=== PATIENT | female | born 2000 | race Caucasian/White ===

== ENCOUNTER 2023-09-18 13:32 | Emergency (ER) | payer BC ==
--- NOTE | 2023-09-18 14:04 | ED ---
General Adult HPI - General Source: patient Mode of arrival: ambulatory Limitations: no limitations <Leno Ryan - Last Filed: 09/18/23 14:56> <Raffy Moya - Last Filed: 09/18/23 16:20> - General Chief complaint: Nausea/Vomiting/Diarrhea Stated complaint: NV, poss Alcohol Poisoning Time Seen by Provider: 09/18/23 13:52 - History of Present Illness Initial comments: Dictation was produced using [employer] dictation software. please excuse any grammatical, word or spelling errors. Chief Complaint: 22-year-old female presents with feeling hung over History of Present Illness: Patient 22-year-old female she went out last night to celebrate her new job. She had multiple alcoholic beverages. Last night and today she had significant bouts of nausea and vomiting. She states she does not drink often. She does complain of some mild abdominal cramping. Patient denies . Patient states that her emesis is nonbilious nonbloody. The ROS documented in this emergency department record has been reviewed and confirmed by me. Those systems with pertinent positive or negative responses have been documented in the HPI. All other systems are other negative and/or noncontributory. (Leno Ryan) - Related Data Previous Rx's Medication Instructions Recorded Famotidine [Pepcid] 20 mg PO DAILY 14 Days #14 tablet 09/18/23 Allergies Allergy/AdvReac Type Severity Reaction Status Date / Time erythromycin base Allergy Rash/Hives Verified 09/18/23 13:42 Penicillins Allergy Rash/Hives Verified 09/18/23 13:42 sulfamethoxazole Allergy Rash/Hives Verified 09/18/23 13:42 [From Bactrim] trimethoprim [From Bactrim] Allergy Rash/Hives Verified 09/18/23 13:42 Review of Systems ROS Other: All systems not noted in ROS Statement are negative. <Leno Ryan - Last Filed: 09/18/23 14:56> ROS Other: All systems not noted in ROS Statement are negative. <Raffy Moya - Last Filed: 09/18/23 16:20> ROS Statement: Those systems with pertinent positive or pertinent negative responses have been documented in the HPI. Past Medical History Past Medical History: No Reported History History of Any Multi-Drug Resistant Organisms: None Reported Additional Past Surgical History / Comment(s): Brain tumo, breast tumor. Past Psychological History: No Psychological Hx Reported Smoking Status: Vaper Past Alcohol Use History: Occasional Past Drug Use History: Marijuana <Leno Ryan - Last Filed: 09/18/23 14:56> General Exam Limitations: no limitations <Leno Ryan - Last Filed: 09/18/23 14:56> - General Exam Comments Initial Comments: PHYSICAL EXAM: General Impression: Alert and oriented x3, not in acute distress HEENT: Normocephalic atraumatic, extra-ocular movements intact, pupils equal and reactive to light bilaterally, mucous membranes moist. Cardiovascular: Heart regular rate and rhythm Chest: Able to complete full sentences, no retractions, no tachypnea Abdomen: abdomen soft, non-tender, non-distended, no organomegaly Musculoskeletal: Pulses present and equal in all extremities, no peripheral edema Motor: no focal deficits noted Neurological: CN II-XII grossly intact, no focal motor or sensory deficits noted Skin: Intact with no visualized rashes Psych: Normal affect and mood (Leno Ryan) Course Vital Signs 09/18/23 09/18/23 13:38 15:28 Temperature 98.8 F 97.7 F Pulse Rate 64 71 Respiratory 20 16 Rate Blood Pressure 134/90 139/90 O2 Sat by Pulse 98 97 Oximetry Medical Decision Making - Lab Data Result diagrams: 09/18/23 14:21 <Leno Ryan - Last Filed: 09/18/23 14:56> - Lab Data Result diagrams: 09/18/23 14:21 09/18/23 14:21 <Raffy Moya - Last Filed: 09/18/23 16:20> - Medical Decision Making Was pt. sent in by a medical professional or institution (, PA, RECEPTION AGENT, urgent care, hospital, or custodial...) When possible be specific @ -No Did you speak to anyone other than the patient for history (EMS, parent, family, police, friend...)? What history was obtained from this source @ -No Did you review nursing and triage notes (agree or disagree)? Why? @ -I reviewed and agree with nursing and triage notes Were old charts reviewed (outside hosp., previous admission, EMS record, old EKG, old radiological studies, urgent care reports/EKG's, custodial records)? Report findings @ -No old charts were reviewed Differential Diagnosis (chest pain, altered mental status, abdominal pain women, abdominal pain men, vaginal bleeding, musculoskeletal, weakness, fever, dyspnea, syncope, headache, dizziness, GI bleed, back pain, seizure, CVA, palpatations, mental health)? @ -Not applicable EKG interpreted by me (3pts min.). @ -None done X-rays interpreted by me (1pt min.). @ -None done CT interpreted by me (1pt min.). @ -None done U/S interpreted by me (1pt. min.). @ -None done What testing was considered but not performed or refused? (CT, X-rays, U/S, labs)? Why? @ -None What meds were considered but not given or refused? Why? @ -None Did you discuss the management of the patient with other professionals (professionals i.e. , PA, RECEPTION AGENT, lab, RT, psych nurse, social media coordinator, die cutter apprentice, teacher, boating safety officer, case management director)? Give summary @ -No Was smoking cessation discussed for >3mins.? @ -No Was critical care preformed (if so, how long)? @ -No Were there social determinants of health that impacted care today? How? (Homelessness, low income, unemployed, alcoholism, drug addiction, transportation, low edu. Level, literacy, decrease access to med. care, long-term, rehab)? @ -No Was there de-escalation of care discussed even if they declined (Discuss DNR or withdrawal of care, Hospice)? DNR status @ -No What co-morbidities impacted this encounter? (DM, HTN, Smoking, COPD, CAD, Cancer, CVA, ARF, Chemo, Hep., AIDS, mental health diagnosis, sleep apnea, morbid obesity)? @ -None Was patient admitted / discharged? Hospital course, mention meds given and route, prescriptions, significant lab abnormalities, going to OR and other pertinent info. @ -22-year-old female presents to the emergency department for nausea vomiting. Is likely secondary to alcohol intake yesterday. Vital signs stable. Undiagnosed new problem with uncertain prognosis? @ -No Drug Therapy requiring intensive monitoring for toxicity (Heparin, Nitro, Insulin, Cardizem)? @ -No Were any procedures done? @ -No Diagnosis/symptom? Acute, or Chronic, or Acute on Chronic? Uncomplicated (without systemic symptoms) or Complicated (systemic symptoms)? @ -Nausea and vomiting Side effects of treatment? @ -No Exacerbation, Progression, or Severe Exacerbation? @ -No Poses a threat to life or bodily function? How? (Chest pain, USA, NV, pneumonia, PE, COPD, DKA, ARF, appy, cholecystitis, CVA, Diverticulitis, Homicidal, Suicidal, threat to staff... and all critical care pts) @ -No (Leno Ryan) Patient signed out to me pending results of laboratory studies. Briefly, patient was drinking alcohol last night and went home and all morning has been having nausea and vomiting. Has spasmy pain in her epigastric region when she is having episodes of vomiting. States she did not drink a lot for her typical amount of alcohol use for social engagements. Denies any chest pain or shortness of breath. Denies any fevers, chills, cough. Has no urinary complaints. Does not believe she is . Patient's labs show some hemoconcentration which suggest the multiple episodes of nonbilious nonbloody emesis. On reevaluation, patient is feeling improved. I did offer additional testing such as ultrasound of her gallbladder however patient has no pain at this time. She declines this at this time would like to go home with medications which I think is reasonable. Prior to discharge, patient will be given a GI cocktail as well as a dose of Benadryl. She will be given a prescription for Pepcid and a starter pack of Zofran. Patient was in agreement this plan. Strict return precautions discussed. I will provide the patient with a prescription for Pepcid, starter pack of ODT Zofran. I instructed the patient to follow up with their PCP in the next 1-3 days.. I explained that the patient should return to the emergency department if they experience any worsening symptoms. Strict return precautions were discussed with the patient. The patient expressed understanding of these instructions. I answered all questions that the patient had. The patient was discharged home in good condition with their prescriptions and follow up in formation. Diagnosis/symptom? @ -Alcohol use, nausea and vomiting Acute, or Chronic, or Acute on Chronic? @ -Acute Uncomplicated (without systemic symptoms) or Complicated (systemic symptoms)? @ -Complicated Side effects of treatment? @ -None Exacerbation, Progression, or Severe Exacerbation] @ -No Poses a threat to life or bodily function? @ -No (Raffy Moya) - Lab Data Lab Results 09/18/23 09/18/23 Range/Units 14:21 14:21 WBC 13.1 H (3.8-10.6) k/uL RBC 5.10 (3.80-5.40) m/uL Hgb 16.3 H (11.4-16.0) gm/dL Hct 49.1 H (34.0-46.0) % MCV 96.3 (80.0-100.0) fL MCH 32.0 (25.0-35.0) pg MCHC 33.3 (31.0-37.0) g/dL RDW 12.1 (11.5-15.5) % Plt Count 319 (150-450) k/uL MPV 7.1 Neutrophils % 91 % Lymphocytes % 5 % Monocytes % 3 % Eosinophils % 0 % Basophils % 0 % Neutrophils # 11.9 H (1.3-7.7) k/uL Lymphocytes # 0.6 L (1.0-4.8) k/uL Monocytes # 0.4 (0-1.0) k/uL Eosinophils # 0.0 (0-0.7) k/uL Basophils # 0.0 (0-0.2) k/uL Sodium 145 (137-145) mmol/L Potassium 3.6 (3.5-5.1) mmol/L Chloride 105 (98-107) mmol/L Carbon Dioxide 26 (22-30) mmol/L Anion Gap 14 mmol/L BUN 9 (7-17) mg/dL Creatinine 0.63 (0.52-1.04) mg/dL Est GFR (CKD-EPI)AfAm >90 (>60 ml/min/1.73 sqM) Est GFR (CKD-EPI)NonAf >90 (>60 ml/min/1.73 sqM) Glucose 134 H (74-99) mg/dL Calcium 10.2 (8.4-10.2) mg/dL Lipase 56 (23-300) U/L Disposition Is patient prescribed a controlled substance at d/c from ED?: No Time of Disposition: 14:57 <Leno Ryan - Last Filed: 09/18/23 14:56> Is patient prescribed a controlled substance at d/c from ED?: No Time of Disposition: 15:50 <Raffy Moya - Last Filed: 09/18/23 16:20> Clinical Impression: Alcohol use, Nausea and vomiting Disposition: HOME SELF-CARE Condition: Good Instructions (If sedation given, give patient instructions): Acute Nausea and Vomiting (ED) Prescriptions: Famotidine [Pepcid] 20 mg PO DAILY 14 Days #14 tablet Referrals: Nonstaff,Physician [Primary Care Provider] - 1-2 days
[2023-09-18] MEDS: ONDANSETRON 4 MG/2 ML VIAL IVP STA (14:28)
[2023-09-18] MEDS: diphenhydrAMINE 50 MG/ML 1 ML VIAL IVP STA (14:28)
[2023-09-18 14:29] LABS: Basophils % (A) 0 %; Eosinophils % (A) 0 %; HCT 49.1 % (34.0-46.0); HGB 16.3 gm/dL (11.4-16.0); Lymphocytes # (A) 0.6 k/uL (1.0-4.8); Lymphocytes % (A) 5 %; MCHC 33.3 g/dL (31.0-37.0); MCV 96.3 fL (80.0-100.0); Mean Platelet Volume 7.1; Monocytes # (A) 0.4 k/uL (0-1.0); Monocytes % (A) 3 %; Neutrophils # (A) 11.9 k/uL (1.3-7.7); Neutrophils % (A) 91 %; Platelet Count 319 k/uL (150-450); RDW 12.1 % (11.5-15.5); WBC 13.1 k/uL (3.8-10.6)
[2023-09-18] MEDS: SODIUM CHLORIDE 0.9% 1,000 ML IV STA (14:29)
[2023-09-18 14:45] LABS: African American GFR (CKD) >90 (>60 ml/min/1.73 sqM); Blood Urea Nitrogen 9 mg/dL (7-17); Non-African American GFR(CKD) >90 (>60 ml/min/1.73 sqM)
[2023-09-18 15:08] LABS: Anion Gap 14 mmol/L; Calcium 10.2 mg/dL (8.4-10.2); Carbon Dioxide 26 mmol/L (22-30); Chloride 105 mmol/L (98-107); Glucose 134 mg/dL (74-99); Lipase 56 U/L (23-300); Potassium 3.6 mmol/L (3.5-5.1); Sodium 145 mmol/L (137-145)
[2023-09-18 16:00] VITALS: BP 139/90; PULSE 71; RESP 16; TEMP 97.7
[2023-09-18] MEDS: diphenhydrAMINE 25 MG CAP PO STA (16:08)
[2023-09-18] MEDS: MAG HYDROX/AL HYDROX/SIMETH 30 ML, HYOSCYAMINE ELIXIR 10 ML, LIDOCAINE VISCOUS 2% 10 ML PO STA (16:09)
[2023-09-18] MEDS: ONDANSETRON 4 MG ODT STARTER PACK 2 TAB BTL PO STA (16:09)
== END 2023-09-18 16:15 | disposition home or self-care (01) ==
LOC: EC 13:32
DX: F10.90 Alcohol use, unspecified, uncomplicated (principal); R11.2 Nausea with vomiting, unspecified; F17.290 Nicotine dependence, other tobacco product, uncomplicated; Z88.0 Allergy status to penicillin; Z88.1 Allergy status to other antibiotic agents; Z88.2 Allergy status to sulfonamides
CPT/HCPCS: 36415; 80048; 83690; 85025; 99284; 96374; 96375; 96361; J1200; J2405; S0119

== ENCOUNTER 2023-09-19 09:37 | Emergency (ER) | payer BC ==
--- NOTE | 2023-09-19 09:54 | ED ---
Nausea/Vomiting/Diarrhea HPI - General Chief complaint: Nausea/Vomiting/Diarrhea Stated complaint: N/V/D Time Seen by Provider: 09/19/23 09:44 Source: patient, RN notes reviewed Mode of arrival: ambulatory Limitations: no limitations - History of Present Illness Initial comments: This is a 22-year-old female who presents to the emergency department for nausea and vomiting. Patient was evaluated here for nausea and vomiting yesterday that was thought to be secondary to alcohol consumption. She was discharged with a starter pack for Zofran, which she states was helpful at home, however she ran out and has since continued to have nausea and vomiting. She has generalized abdominal pain, which she believes may be related to all of the vomiting, but is not really sure. Denies any fever/chills. MD complaint: nausea, vomiting - Related Data Previous Rx's Medication Instructions Recorded Famotidine [Pepcid] 20 mg PO DAILY 14 Days #14 tablet 09/18/23 Ondansetron Odt [Zofran Odt] 4 mg PO Q8HR PRN #15 tab 09/19/23 Allergies Allergy/AdvReac Type Severity Reaction Status Date / Time erythromycin base Allergy Rash/Hives Verified 09/19/23 09:42 Penicillins Allergy Rash/Hives Verified 09/19/23 09:42 sulfamethoxazole Allergy Rash/Hives Verified 09/19/23 09:42 [From Bactrim] trimethoprim [From Bactrim] Allergy Rash/Hives Verified 09/19/23 09:42 Review of Systems ROS Statement: Those systems with pertinent positive or pertinent negative responses have been documented in the HPI. ROS Other: All systems not noted in ROS Statement are negative. Past Medical History Past Medical History: No Reported History History of Any Multi-Drug Resistant Organisms: None Reported Additional Past Surgical History / Comment(s): Brain tumo, breast tumor. Past Psychological History: No Psychological Hx Reported Smoking Status: Vaper Past Alcohol Use History: Occasional Past Drug Use History: Marijuana General Exam Limitations: no limitations General appearance: alert, in no apparent distress Head exam: Present: atraumatic, normocephalic, normal inspection Respiratory exam: Present: normal lung sounds bilaterally. Absent: respiratory distress, wheezes, rales, rhonchi, stridor Cardiovascular Exam: Present: regular rate, normal rhythm, normal heart sounds. Absent: systolic murmur, diastolic murmur, rubs, gallop, clicks GI/Abdominal exam: Present: soft, tenderness (diffuse), normal bowel sounds. Absent: distended Neurological exam: Present: alert, oriented X3, CN II-XII intact Psychiatric exam: Present: normal affect, normal mood Skin exam: Present: warm, dry, intact, normal color. Absent: rash Course Vital Signs 09/19/23 09/19/23 09:41 12:46 Temperature 98.6 F Pulse Rate 60 85 Respiratory 20 16 Rate Blood Pressure 131/68 110/73 O2 Sat by Pulse 99 100 Oximetry Medical Decision Making - Medical Decision Making This is a 22 year old female who presents to the emergency department for nausea and vomiting. Was pt. sent in by a medical professional or institution? @ -No Did you speak to anyone other than the patient for history? @ -No Did you review nursing and triage notes? @ -Yes, and I agree, it is accurate with regards to the patient's symptoms. Were old charts reviewed? @ -No Differential Diagnosis? @ -Differential Nausea and Vomiting: Gastroenteritis, cholecystitis, appendicitis, pancreatitis, migraine, benign positional vertigo, food borne illness, pyelonephritis, irritable bowel syndrome, influenza, Covid, GERD, incarcerated hernia, intestinal obstruction, this is not meant to be an all-inclusive list. EKG interpreted by me (3pts min.)? @ -Not obtained X-rays interpreted by me (1pt min.)? @ -Not obtained CT interpreted by me (1pt min.)? @ -Not obtained U/S interpreted by me (1pt. min.)? @ -Gallbladder ultrasound obtained. My interpretation identifies no evidence of cholelithiasis. What testing was considered but not performed? (CT, X-rays, U/S, labs)? Why? @ -None What meds were considered but not given? Why? @ -None Did you discuss the management of the patient with other professionals? @ -No Did you reconcile home meds? @ -No Was smoking cessation discussed for >3mins.? @ -No Was critical care preformed (if so, how long)? @ -No Were there social determinants of health that impacted care today? How? (Homelessness, low income, unemployed, alcoholism, drug addiction, transportation, low edu. Level, literacy, decrease access to med. care, shelter, rehab)? @ -No Was there de-escalation of care discussed even if they declined? (Discuss DNR or withdrawal of care, Hospice)? @ -No What co-morbidities impacted this encounter? (DM, HTN, Smoking, COPD, CAD, Cancer, CVA, Hep., AIDS, mental health diagnosis, sleep apnea, morbid obesity)? @ -None Was patient admitted / discharged? @ -Discharged. Lab work demonstrates leukocytosis with a white blood cell count of 15.7. This is increased when compared with yesterday when it was 13.1. She also has a mild elevation in LFTs, however these were not evaluated yesterday for comparison. She initially declined any imaging, but was later agreeable to a gallbladder ultrasound. This revealed no acute process. Sympto ms were well-controlled in the emergency department and she was tolerating oral intake afterwards. The leukocytosis may be reactive from all of the nausea and vomiting. However, discussed with the patient that if symptoms persist and she develops increasing abdominal pain, she will need to return to the emergency department, as she may need additional imaging, such as a CT scan of the abdomen and pelvis. She expresses understanding, but does not wish to proceed with any additional imaging during her visit today. Prescription for Zofran provided with dosing instructions reviewed. She is advised to slowly advance her diet as tolerated and remain well-hydrated. Patient discharged home in stable condition. Undiagnosed new problem with uncertain prognosis? @ -None Drug Therapy requiring intensive monitoring for toxicity (Heparin, Nitro, Insulin, Cardizem)? @ -None Were any procedures done? @ -None Diagnosis/symptom? @ -Nausea and vomiting Acute, or Chronic, or Acute on Chronic? @ -Acute Uncomplicated (without systemic symptoms) or Complicated (systemic symptoms)? @ -Uncomplicated Side effects of treatment? @ -None Exacerbation, Progression, or Severe Exacerbation] @ -Not applicable Poses a threat to life or bodily function? @ -Unlikely Return precautions reviewed in depth, the patient is instructed to return to the emergency department with any new, worsening, or concerning symptoms. Patient verbalized understanding. This case was discussed in detail with the attending ED physician, Dr. Molina. Presentation, findings, and treatment plan discussed in detail as well. - Lab Data Result diagrams: 09/19/23 10:21 09/19/23 10:21 Lab Results 09/19/23 09/19/23 09/19/23 Range/Units 10:21 10:21 10:21 WBC 15.7 H (3.8-10.6) k/uL RBC 4.89 (3.80-5.40) m/uL Hgb 15.7 (11.4-16.0) gm/dL Hct 46.2 H (34.0-46.0) % MCV 94.4 (80.0-100.0) fL MCH 32.0 (25.0-35.0) pg MCHC 33.9 (31.0-37.0) g/dL RDW 12.6 (11.5-15.5) % Plt Count 310 (150-450) k/uL MPV 7.9 Neutrophils % 83 % Lymphocytes % 10 % Monocytes % 5 % Eosinophils % 0 % Basophils % 0 % Neutrophils # 13.0 H (1.3-7.7) k/uL Lymphocytes # 1.6 (1.0-4.8) k/uL Monocytes # 0.8 (0-1.0) k/uL Eosinophils # 0.0 (0-0.7) k/uL Basophils # 0.0 (0-0.2) k/uL Sodium 140 (137-145) mmol/L Potassium 3.3 L (3.5-5.1) mmol/L Chloride 96 L (98-107) mmol/L Carbon Dioxide 30 (22-30) mmol/L Anion Gap 14 mmol/L BUN 13 (7-17) mg/dL Creatinine 0.72 (0.52-1.04) mg/dL Est GFR (CKD-EPI)AfAm >90 (>60 ml/min/1.73 sqM) Est GFR (CKD-EPI)NonAf >90 (>60 ml/min/1.73 sqM) Glucose 119 H (74-99) mg/dL Plasma Lactic Acid Osei 1.2 (0.7-2.0) mmol/L Calcium 9.8 (8.4-10.2) mg/dL Total Bilirubin 1.4 H (0.2-1.3) mg/dL AST 45 H (14-36) U/L ALT 37 H (4-34) U/L Alkaline Phosphatase 103 (38-126) U/L Total Protein 8.4 H (6.3-8.2) g/dL Albumin 5.3 H (3.5-5.0) g/dL Amylase 162 H (30-110) U/L Lipase 161 (23-300) U/L HCG, Qual Not Detected - Radiology Data Radiology results: report reviewed, image reviewed Disposition Clinical Impression: Nausea and vomiting Disposition: HOME SELF-CARE Instructions (If sedation given, give patient instructions): Acute Nausea and Vomiting (ED) Additional Instructions: Return to the emergency department with any new, worsening, or concerning symptoms. You can take the Zofran up to every 8 hours as needed for nausea and vomiting. You can also take uiky-frj-hyoddcy Benadryl. Slowly advance your diet as tolerated and remain well-hydrated. Follow up with your primary care provider in 1-2 days. Prescriptions: Ondansetron Odt [Zofran Odt] 4 mg PO Q8HR PRN #15 tab PRN Reason: Nausea And Vomiting Is patient prescribed a controlled substance at d/c from ED?: No Referrals: None,Stated [REFERRING] - 1-2 days Time of Disposition: 12:40
[2023-09-19 10:09] VITALS: TEMP 98.6
[2023-09-19] MEDS: SODIUM CHLORIDE 0.9% 1,000 ML IV STA (10:16)
[2023-09-19] MEDS: ONDANSETRON 4 MG/2 ML VIAL IVP STA ×2 (10:16→12:48)
[2023-09-19] MEDS: diphenhydrAMINE 50 MG/ML 1 ML VIAL IVP STA ×2 (10:17→12:48)
[2023-09-19] MEDS: FAMOTIDINE 20 MG/2 ML VIAL IV STA (10:17)
[2023-09-19 10:55] LABS: Basophils % (A) 0 %; Eosinophils % (A) 0 %; HCT 46.2 % (34.0-46.0); HGB 15.7 gm/dL (11.4-16.0); Lymphocytes # (A) 1.6 k/uL (1.0-4.8); Lymphocytes % (A) 10 %; MCHC 33.9 g/dL (31.0-37.0); MCV 94.4 fL (80.0-100.0); Mean Platelet Volume 7.9; Monocytes # (A) 0.8 k/uL (0-1.0); Monocytes % (A) 5 %; Neutrophils % (A) 83 %; Platelet Count 310 k/uL (150-450); RBC 4.89 m/uL (3.80-5.40); RDW 12.6 % (11.5-15.5); WBC 15.7 k/uL (3.8-10.6)
[2023-09-19 11:10] LABS: HCG,Qualitative Serum Not Detected
[2023-09-19 11:13] LABS: ALT 37 U/L (4-34); AST 45 U/L (14-36); African American GFR (CKD) >90 (>60 ml/min/1.73 sqM); Albumin 5.3 g/dL (3.5-5.0); Alkaline Phosphatase 103 U/L (38-126); Amylase 162 U/L (30-110); Anion Gap 14 mmol/L; Blood Urea Nitrogen 13 mg/dL (7-17); Calcium 9.8 mg/dL (8.4-10.2); Carbon Dioxide 30 mmol/L (22-30); Chloride 96 mmol/L (98-107); Glucose 119 mg/dL (74-99); Lipase 161 U/L (23-300); Non-African American GFR(CKD) >90 (>60 ml/min/1.73 sqM); Potassium 3.3 mmol/L (3.5-5.1); Sodium 140 mmol/L (137-145); Total Bilirubin 1.4 mg/dL (0.2-1.3); Total Protein 8.4 g/dL (6.3-8.2)
--- NOTE | 2023-09-19 12:25 | US ---
EXAMINATION TYPE: US gallbladder DATE OF EXAM: 09/19/2023 COMPARISON: NONE CLINICAL INDICATION: Female, 22 years old with history of Epigastric pain, N/V; n/v x 2 days TECHNIQUE: Multiple sonographic images of the right upper quadrant are obtained. FINDINGS: EXAM MEASUREMENTS: Liver Length: 11.8 cm Gallbladder Wall: 0.2 cm CBD: 0.4 cm Right Kidney: 11.3x4.0x5.7 cm IP ARCHITECT NOTES: Pancreas: Tail obscured by overlying bowel gas Liver: wnl Gallbladder: wnl Evidence for sonographic Erickson's sign: No CBD: wnl Right Kidney: No hydronephrosis or masses seen Exam limited by patient movement/ vomiting IMPRESSION: 1. No acute ultrasound right upper quadrant abdomen abnormality
[2023-09-19] MEDS: ONDANSETRON 4 MG ODT STARTER PACK 2 TAB BTL PO STA (12:54)
[2023-09-19 13:04] VITALS: BP 110/73; PULSE 85; RESP 16
== END 2023-09-19 12:54 | disposition home or self-care (01) ==
LOC: EC 09:37
DX: R11.2 Nausea with vomiting, unspecified (principal); F17.290 Nicotine dependence, other tobacco product, uncomplicated; Z88.0 Allergy status to penicillin; Z88.8 Allergy status to other drugs, medicaments and biological substances; Z88.2 Allergy status to sulfonamides
CPT/HCPCS: 36415; 80053; 82150; 83605; 83690; 85025; 84703; 76705; 99284; 96374; 96375 ×2; 96376 ×2; 96361 ×2; J1200; J2405; J3490; S0119

== ENCOUNTER 2023-09-19 22:14 | Observation (INO) | payer BC ==
[2023-09-19] MEDS: diphenhydrAMINE 50 MG/ML 1 ML VIAL IVP STA (23:21)
[2023-09-19] MEDS: PANTOPRAZOLE 40 MG/10 ML VIAL IVP STA (23:21)
[2023-09-19] MEDS: METOCLOPRAMIDE 5 MG/ML 2 ML VIAL IVP STA (23:22)
[2023-09-19] MEDS: SODIUM CHLORIDE 0.9% 2,000 ML IV STA (23:26)
[2023-09-19 23:43] LABS: ALT 35 U/L (4-34); AST 44 U/L (14-36); African American GFR (CKD) >90 (>60 ml/min/1.73 sqM); Alkaline Phosphatase 98 U/L (38-126); Anion Gap 11 mmol/L; Blood Urea Nitrogen 11 mg/dL (7-17); Calcium 9.4 mg/dL (8.4-10.2); Carbon Dioxide 27 mmol/L (22-30); Chloride 101 mmol/L (98-107); Glucose 106 mg/dL (74-99); Lipase 59 U/L (23-300); Non-African American GFR(CKD) >90 (>60 ml/min/1.73 sqM); Potassium 3.2 mmol/L (3.5-5.1); Sodium 139 mmol/L (137-145); Total Bilirubin 1.4 mg/dL (0.2-1.3); Total Protein 7.8 g/dL (6.3-8.2)
[2023-09-19 23:44] LABS: Appearance,Urine Clear (Clear); Bacteria,Urine Rare /hpf; Bilirubin,Urine Negative (Negative); Blood,Urine Negative (Negative); Color,Urine Yellow; Glucose,Urine (UA) Negative (Negative); Ketones,Urine 2+ (Negative); Leukocyte Esterase,Urine Negative (Negative); Mucus,Urine Rare /hpf; Nitrite,Urine Negative (Negative); PH, Urine 7.5 (5.0-8.0); Protein,Urine 1+ (Negative); RBC,Urine 3 /hpf (0-5); Specific Gravity,Urine 1.031 (1.001-1.035); Squamous Epithelial Cell,Urine 2 /hpf (0-4); WBC,Urine 4 /hpf (0-5)
[2023-09-19 23:49] LABS: Basophils % (A) 0 %; Eosinophils % (A) 0 %; HCT 45.7 % (34.0-46.0); HGB 15.4 gm/dL (11.4-16.0); Lymphocytes # (A) 1.4 k/uL (1.0-4.8); Lymphocytes % (A) 14 %; MCH 32.3 pg (25.0-35.0); MCHC 33.8 g/dL (31.0-37.0); MCV 95.5 fL (80.0-100.0); Mean Platelet Volume 7.8; Monocytes # (A) 0.5 k/uL (0-1.0); Monocytes % (A) 5 %; Neutrophils # (A) 7.9 k/uL (1.3-7.7); Neutrophils % (A) 78 %; Platelet Count 256 k/uL (150-450); RBC 4.78 m/uL (3.80-5.40); RDW 12.4 % (11.5-15.5); WBC 10.1 k/uL (3.8-10.6)
--- NOTE | 2023-09-20 00:41 | CT ---
EXAM: CT Abdomen and Pelvis With Intravenous Contrast CLINICAL HISTORY: ITS.REASON CT Reason: intractable vomiting TECHNIQUE: Axial computed tomography images of the abdomen and pelvis with intravenous contrast. CTDI is 9.10 mGy and DLP is 482 mGy-cm. This CT exam was performed using one or more of the following dose reduction techniques: automated exposure control, adjustment of the mA and/or kV according to patient size, and/or use of iterative reconstruction technique. Coronal and sagittal reconstructions are performed. 400 images COMPARISON: Gallbladder ultrasound from today FINDINGS: Lung bases: Unremarkable. No mass. No consolidation. ABDOMEN: Liver: Unremarkable. No mass. Gallbladder and bile ducts: Unremarkable. No calcified stones. No ductal dilation. Pancreas: Unremarkable. No mass. No ductal dilation. Spleen: Unremarkable. No splenomegaly. Adrenals: Unremarkable. No mass. Kidneys and ureters: Unremarkable. No solid mass. No hydronephrosis. Stomach and bowel: Unremarkable. No obstruction. No mucosal thickening. PELVIS: Appendix: Normal appendix. Bladder: Unremarkable. No mass. Reproductive: Unremarkable as visualized. ABDOMEN and PELVIS: Intraperitoneal space: Unremarkable. No free air. No significant fluid collection. Bones/joints: No acute findings. Soft tissues: Unremarkable. Vasculature: Unremarkable. No abdominal aortic aneurysm. Lymph nodes: Unremarkable. No enlarged lymph nodes. IMPRESSION: Normal abdomen and pelvis CT.
[2023-09-20] MEDS ORDERED: NALOXONE 0.4 MG/ML 1 ML VIAL IV PRN (02:09)
--- NOTE | 2023-09-20 02:09 | ED ---
General Adult HPI - General Chief complaint: Nausea/Vomiting/Diarrhea Stated complaint: vomiting Source: patient Mode of arrival: ambulatory Limitations: no limitations - Related Data Previous Rx's Medication Instructions Recorded Famotidine [Pepcid] 20 mg PO DAILY 14 Days #14 tablet 09/18/23 Ondansetron Odt [Zofran Odt] 4 mg PO Q8HR PRN #15 tab 09/19/23 Allergies Allergy/AdvReac Type Severity Reaction Status Date / Time erythromycin base Allergy Rash/Hives Verified 09/19/23 22:27 Penicillins Allergy Rash/Hives Verified 09/19/23 22:27 sulfamethoxazole Allergy Rash/Hives Verified 09/19/23 22:27 [From Bactrim] trimethoprim [From Bactrim] Allergy Rash/Hives Verified 09/19/23 22:27 Review of Systems ROS Statement: Those systems with pertinent positive or pertinent negative responses have been documented in the HPI. ROS Other: All systems not noted in ROS Statement are negative. Past Medical History Past Medical History: No Reported History History of Any Multi-Drug Resistant Organisms: None Reported Additional Past Surgical History / Comment(s): Brain tumo, breast tumor. Past Psychological History: No Psychological Hx Reported Smoking Status: Vaper Past Alcohol Use History: Occasional Past Drug Use History: Marijuana General Exam Limitations: no limitations Course Vital Signs 09/19/23 09/19/23 22:25 23:27 Temperature 99.9 F H Pulse Rate 84 88 Respiratory 16 Rate Blood Pressure 98/65 110/89 O2 Sat by Pulse 97 98 Oximetry Medical Decision Making - Lab Data Result diagrams: 09/19/23 23:00 09/19/23 23:00 Lab Results 09/19/23 09/19/23 09/19/23 Range/Units 23:00 23:00 23:00 WBC 10.1 (3.8-10.6) k/uL RBC 4.78 (3.80-5.40) m/uL Hgb 15.4 (11.4-16.0) gm/dL Hct 45.7 (34.0-46.0) % MCV 95.5 (80.0-100.0) fL MCH 32.3 (25.0-35.0) pg MCHC 33.8 (31.0-37.0) g/dL RDW 12.4 (11.5-15.5) % Plt Count 256 (150-450) k/uL MPV 7.8 Neutrophils % 78 % Lymphocytes % 14 % Monocytes % 5 % Eosinophils % 0 % Basophils % 0 % Neutrophils # 7.9 H (1.3-7.7) k/uL Lymphocytes # 1.4 (1.0-4.8) k/uL Monocytes # 0.5 (0-1.0) k/uL Eosinophils # 0.0 (0-0.7) k/uL Basophils # 0.0 (0-0.2) k/uL Sodium 139 (137-145) mmol/L Potassium 3.2 L (3.5-5.1) mmol/L Chloride 101 (98-107) mmol/L Carbon Dioxide 27 (22-30) mmol/L Anion Gap 11 mmol/L BUN 11 (7-17) mg/dL Creatinine 0.68 (0.52-1.04) mg/dL Est GFR (CKD-EPI)AfAm >90 (>60 ml/min/1.73 sqM) Est GFR (CKD-EPI)NonAf >90 (>60 ml/min/1.73 sqM) Glucose 106 H (74-99) mg/dL Plasma Lactic Acid [place]se[place] 1.3 (0.7-2.0) mmol/L Calcium 9.4 (8.4-10.2) mg/dL Total Bilirubin 1.4 H (0.2-1.3) mg/dL AST 44 H (14-36) U/L ALT 35 H (4-34) U/L Alkaline Phosphatase 98 (38-126) U/L Total Protein 7.8 (6.3-8.2) g/dL Albumin 5.0 (3.5-5.0) g/dL Lipase 59 (23-300) U/L Urine Color Urine Appearance (Clear) Urine pH (5.0-8.0) Ur Specific [place] (1.001-1.035) Urine Protein (Negative) Urine Glucose (UA) (Negative) Urine Ketones (Negative) Urine Blood (Negative) Urine Nitrite (Negative) Urine Bilirubin (Negative) Urine Urobilinogen (<2.0) mg/dL Ur Leukocyte Esterase (Negative) Urine RBC (0-5) /hpf Urine WBC (0-5) /hpf Ur Squamous Epith Cells (0-4) /hpf Urine Bacteria (None) /hpf Urine Mucus (None) /hpf Urine HCG, Qual (Not Detectd) 09/19/23 09/19/23 Range/Units 23:25 23:25 WBC (3.8-10.6) k/uL RBC (3.80-5.40) m/uL Hgb (11.4-16.0) gm/dL Hct (34.0-46.0) % MCV (80.0-100.0) fL MCH (25.0-35.0) pg MCHC (31.0-37.0) g/dL RDW (11.5-15.5) % Plt Count (150-450) k/uL MPV Neutrophils % % Lymphocytes % % Monocytes % % Eosinophils % % Basophils % % Neutrophils # (1.3-7.7) k/uL Lymphocytes # (1.0-4.8) k/uL Monocytes # (0-1.0) k/uL Eosinophils # (0-0.7) k/uL Basophils # (0-0.2) k/uL Sodium (137-145) mmol/L Potassium (3.5-5.1) mmol/L Chloride (98-107) mmol/L Carbon Dioxide (22-30) mmol/L Anion Gap mmol/L BUN (7-17) mg/dL Creatinine (0.52-1.04) mg/dL Est GFR (CKD-EPI)AfAm (>60 ml/min/1.73 sqM) Est GFR (CKD-EPI)NonAf (>60 ml/min/1.73 sqM) Glucose (74-99) mg/dL Plasma Lactic Acid [place]se[place] (0.7-2.0) mmol/L Calcium (8.4-10.2) mg/dL Total Bilirubin (0.2-1.3) mg/dL AST (14-36) U/L ALT (4-34) U/L Alkaline Phosphatase (38-126) U/L Total Protein (6.3-8.2) g/dL Albumin (3.5-5.0) g/dL Lipase (23-300) U/L Urine Color Yellow Urine Appearance Clear (Clear) Urine pH 7.5 (5.0-8.0) Ur Specific [place] 1.031 (1.001-1.035) Urine Protein 1+ H (Negative) Urine Glucose (UA) Negative (Negative) Urine Ketones 2+ H (Negative) Urine Blood Negative (Negative) Urine Nitrite Negative (Negative) Urine Bilirubin Negative (Negative) Urine Urobilinogen 3.0 (<2.0) mg/dL Ur Leukocyte Esterase Negative (Negative) Urine RBC 3 (0-5) /hpf Urine WBC 4 (0-5) /hpf Ur Squamous Epith Cells 2 (0-4) /hpf Urine Bacteria Rare H (None) /hpf Urine Mucus Rare H (None) /hpf Urine HCG, Qual Not Detected (Not Detectd) Disposition Clinical Impression: Nausea and vomiting Disposition: ADMITTED IP TO THIS [facility] Condition: Stable Is patient prescribed a controlled substance at d/c from ED?: No Referrals: None,Stated [Primary Care Provider] - 1-2 days Time of Disposition: 02:07 Decision to Admit Reason: Admit from EC Decision Date: 09/20/23 Decision Time: 02:07
[2023-09-20] MEDS: ONDANSETRON 4 MG/2 ML VIAL IVP STA (02:20)
[2023-09-20] MEDS: HYDROmorphone 0.5 MG/0.5 ML SYRINGE IVP STA (02:20)
[2023-09-20] MEDS: diphenhydrAMINE 50 MG/ML 1 ML VIAL IVP STA (02:34)
[2023-09-20] MEDS: POTASSIUM CHLORIDE 20 MEQ in WATER FOR INJECTION 1 100ML.BAG IVPB STA (02:34)
[2023-09-20] MEDS: SODIUM CHLORIDE 0.9% 1,000 ML IV SCH (02:34)
[2023-09-20] MEDS: HYDROmorphone 1 MG/ML 1 ML SYRINGE IVP STA (06:08)
[2023-09-20 08:22] VITALS: RESP 18
[2023-09-20] MEDS: PANTOPRAZOLE 40 MG/10 ML VIAL IV SCH (08:28)
[2023-09-20 09:59] LABS: Basophils % (A) 0 %; Eosinophils % (A) 0 %; HCT 42.8 % (34.0-46.0); HGB 13.5 gm/dL (11.4-16.0); Lymphocytes # (A) 2.4 k/uL (1.0-4.8); Lymphocytes % (A) 24 %; MCH 30.9 pg (25.0-35.0); MCHC 31.6 g/dL (31.0-37.0); MCV 97.7 fL (80.0-100.0); Mean Platelet Volume 7.2; Monocytes # (A) 0.5 k/uL (0-1.0); Monocytes % (A) 5 %; Neutrophils # (A) 6.7 k/uL (1.3-7.7); Neutrophils % (A) 68 %; Platelet Count 229 k/uL (150-450); RBC 4.38 m/uL (3.80-5.40); RDW 12.2 % (11.5-15.5); WBC 9.7 k/uL (3.8-10.6)
[2023-09-20 10:11] LABS: ALT 47 U/L (4-34); AST 39 U/L (14-36); African American GFR (CKD) >90 (>60 ml/min/1.73 sqM); Albumin 4.3 g/dL (3.5-5.0); Albumin/Globulin Ratio 1.7; Alkaline Phosphatase 68 U/L (38-126); Anion Gap 13 mmol/L; Blood Urea Nitrogen 8 mg/dL (7-17); Carbon Dioxide 22 mmol/L (22-30); Chloride 104 mmol/L (98-107); Globulin 2.6 g/dL; Glucose 96 mg/dL (74-99); Magnesium 2.3 mg/dL (1.6-2.3); Non-African American GFR(CKD) >90 (>60 ml/min/1.73 sqM); Potassium 3.4 mmol/L (3.5-5.1); Sodium 139 mmol/L (137-145); Total Bilirubin 1.1 mg/dL (0.2-1.3); Total Protein 6.9 g/dL (6.3-8.2)
[2023-09-20] MEDS ORDERED: Potassium Replacement Protocol 1 EACH MISC MISCELLANE PRN ×2 (11:06→12:58)
[2023-09-20] MEDS ORDERED: ACETAMINOPHEN TAB 325 MG TAB PO PRN (11:13)
[2023-09-20] MEDS ORDERED: IBUPROFEN 200 MG TAB PO PRN (11:13)
[2023-09-20] MEDS: HYDROmorphone 0.5 MG/0.5 ML SYRINGE IVP PRN (12:30)
[2023-09-20] MEDS: ONDANSETRON 4 MG/2 ML VIAL IVP PRN (12:31)
--- NOTE | 2023-09-20 12:59 | HP ---
HISTORY AND PHYSICAL This is a combined history and physical and discharge summary. CHIEF COMPLAINT: Nausea and vomiting. HISTORY OF PRESENT ILLNESS: This is a 22-year-old woman with a past medical history of multiple medical problems including ADHD, apparently took 3 shots of Tequila and subsequently the patient had nausea, vomiting and was unable to keep anything down. The patient came to [facility] for evaluation. The patient has some mild hypokalemia. The abdominopelvic CAT scan did not show any acute abnormality. The patient is improving at this time. There is no history of any fever, rigors, or chills at this time. PAST MEDICAL HISTORY: History of ADHD, history of vaping, breast tumor. Rest of the history and rest of the chart is also reviewed. HOME MEDICATIONS: Reviewed include Zofran, doses and rest of medications reviewed. ALLERGIES: Reviewed include erythromycin. Rest of allergies reviewed. FAMILY HISTORY: No history of heart disease or strokes in the family. SOCIAL HISTORY: Occasional alcohol, marijuana, vaping. REVIEW OF SYSTEMS: 14-point review is negative except as mentioned earlier. PHYSICAL EXAMINATION: VITAL SIGNS: Pulse is 73, blood pressure 110/70, respirations 18. HEENT: Conjunctivae normal. NECK: No JVD. CARDIOVASCULAR: S1, S2. RESPIRATIONS: Breath sounds diminished at the bases. ABDOMEN: Soft, nontender, no mass. LEGS: No edema. NERVOUS SYSTEM: Nonfocal. SKIN: No ulcer, rash, bleeding. JOINTS: No active deforming arthropathy. LABORATORY DATA: Noted. Potassium 3.2. ASSESSMENT: 1. Nausea, vomiting, possible acute gastritis. 2. Hypokalemia. 3. Attention-deficit/hyperactivity disorder. 4. History of nicotine dependence. RECOMMENDATIONS AND DISCUSSION: This is a 22-year-old woman, who presented with multiple complex medical issues, we will monitor the patient closely. I would recommend to avoid alcohol and as well as THC, otherwise symptomatic treatment will be provided. I would recommend to advance diet once the patient is able to tolerate a soft diet. The patient will be able to discharge home with further plans to follow up with primary physician closely. See orders for further details. I would recommend a short course of Protonix. MMODL / IJN: [id number] /
[2023-09-20] MEDS: POTASSIUM CHLORIDE ER 20 MEQ TAB.ER PO SCH (14:13)
[2023-09-20 16:26] VITALS: BP 117/74; PULSE 80; TEMP 97.7
== END 2023-09-20 15:53 ==
LOC: EC 22:14 → 6NMEDSUR 09-20 02:09
PROVIDERS: ADMIT Internal Medicine; ATTEND Internal Medicine
DX: R11.2 Nausea with vomiting, unspecified (principal); E87.6 Hypokalemia; F90.9 Attention-deficit hyperactivity disorder, unspecified type; Z87.891 Personal history of nicotine dependence; Z88.8 Allergy status to other drugs, medicaments and biological substances; Z88.0 Allergy status to penicillin; Z88.2 Allergy status to sulfonamides; Z88.1 Allergy status to other antibiotic agents; Z79.899 Other long term (current) drug therapy
CPT/HCPCS: 96376; 96366; 96367; 96375 ×2; 96365; 99285; 36415; 80053 ×2; 83605; 83690; 83735; 85025 ×2; 81001; 81025; 74177; G0378; J1200 ×2; J2765; J3480; J2405; J1170 ×2; C9113 ×2; Q9967

== ENCOUNTER 2023-09-21 13:57 | Emergency (ER) | payer BC ==
[2023-09-21] MEDS: PANTOPRAZOLE 40 MG/10 ML VIAL IVP STA (14:41)
[2023-09-21] MEDS: diphenhydrAMINE 50 MG/ML 1 ML VIAL IVP STA (14:41)
[2023-09-21] MEDS: droPERidol 5 MG/2 ML VIAL IVP ONE (14:41)
[2023-09-21] MEDS: SODIUM CHLORIDE 0.9% 2,000 ML IV STA (14:41)
[2023-09-21] MEDS: KETOROLAC 15 MG/ML 1 ML VIAL IVP STA (14:42)
[2023-09-21 14:49] LABS: Basophils % (A) 0 %; Eosinophils # (A) 0.1 k/uL (0-0.7); Eosinophils % (A) 1 %; HCT 44.8 % (34.0-46.0); HGB 14.9 gm/dL (11.4-16.0); Lymphocytes # (A) 1.4 k/uL (1.0-4.8); Lymphocytes % (A) 12 %; MCHC 33.3 g/dL (31.0-37.0); MCV 96.1 fL (80.0-100.0); Mean Platelet Volume 7.8; Monocytes # (A) 0.4 k/uL (0-1.0); Monocytes % (A) 3 %; Neutrophils % (A) 83 %; Platelet Count 262 k/uL (150-450); RBC 4.66 m/uL (3.80-5.40)
[2023-09-21 15:03] VITALS: RESP 18
--- NOTE | 2023-09-21 15:22 | ED ---
Nausea/Vomiting/Diarrhea HPI - General Chief complaint: Nausea/Vomiting/Diarrhea Stated complaint: N,V Time Seen by Provider: 09/21/23 14:06 Source: patient, RN notes reviewed Mode of arrival: ambulatory Limitations: no limitations - History of Present Illness Initial comments: 22-year-old female presents emergency department complaint nausea vomiting. Patient was admitted and discharged yesterday she states she requested to be discharged because she wanted to go to work states she started a new job and did not want to miss any more days. Patient states that she has been having ongoing nausea and vomiting issues. She states she used to be admitted at [facility]. Patient states that she has been told that she has endometriosis and more likely to have cyclic vomiting syndrome. Patient states that she always needs pain meds. Patient states she takes Adderall and occasionally some stomach meds at home. Patient states that she has had prior scopes with no acute findings. Patient does admit to marijuana use. - Related Data Home Medications Medication Instructions Recorded Confirmed Dextroamphetamine/Amphetamine 20 mg PO BID@0800,1400 09/20/23 09/20/23 [Adderall] Previous Rx's Medication Instructions Recorded Ondansetron Odt [Zofran ODT] 4 mg PO Q8HR PRN #15 tab 09/19/23 Pantoprazole [Protonix] 40 mg PO BID #30 tab 09/20/23 Promethazine Suppository 25 mg RECTAL QID PRN #15 supp 09/21/23 [Phenergan] Allergies Allergy/AdvReac Type Severity Reaction Status Date / Time erythromycin base Allergy Rash/Hives Verified 09/21/23 14:05 Penicillins Allergy Rash/Hives Verified 09/21/23 14:05 sulfamethoxazole Allergy Rash/Hives/ Verified 09/21/23 14:05 [From Bactrim] Anaphylaxis trimethoprim [From Bactrim] Allergy Rash/Hives/ Verified 09/21/23 14:05 Anaphylaxis Review of Systems ROS Statement: Those systems with pertinent positive or pertinent negative responses have been documented in the HPI. ROS Other: All systems not noted in ROS Statement are negative. Past Medical History Past Medical History: No Reported History History of Any Multi-Drug Resistant Organisms: None Reported Additional Past Surgical History / Comment(s): Brain tumor, breast tumor x2, Endometriosism, EGD/Colonoscopy, Bilateral ear Tympanostomyx3 Past Anesthesia/Blood Transfusion Reactions: No Reported Reaction Past Psychological History: No Psychological Hx Reported Smoking Status: Vaper Past Alcohol Use History: Occasional Past Drug Use History: Marijuana - Past Family History Father Family Medical History: Hypertension General Exam Limitations: no limitations General appearance: alert, in no apparent distress Head exam: Present: atraumatic, normocephalic, normal inspection Neck exam: Present: normal inspection. Absent: tenderness, meningismus, lymphadenopathy Respiratory exam: Present: normal lung sounds bilaterally. Absent: respiratory distress, wheezes, rales, rhonchi, stridor Cardiovascular Exam: Present: regular rate, normal rhythm, normal heart sounds. Absent: systolic murmur, diastolic murmur, rubs, gallop, clicks GI/Abdominal exam: Present: soft, tenderness, normal bowel sounds. Absent: distended, guarding, rebound, rigid Back exam: Absent: CVA tenderness (R), CVA tenderness (L) Neurological exam: Present: alert Course Vital Signs 09/21/23 09/21/23 14:02 15:51 Temperature 98.5 F 98.1 F Pulse Rate 81 84 Respiratory 18 18 Rate Blood Pressure 134/75 127/82 O2 Sat by Pulse 96 98 Oximetry Medical Decision Making - Medical Decision Making Was pt. sent in by a medical professional or institution (, PA, [facility] [employer] [facility], urgent care, hospital, or care home...) When possible be specific @ -No Did you speak to anyone other than the patient for history (EMS, parent, family, police, friend...)? What history was obtained from this source @ -No Did you review nursing and triage notes (agree or disagree)? Why? @ -I reviewed and agree with nursing and triage notes Were old charts reviewed (outside hosp., previous admission, EMS record, old EKG, old radiological studies, urgent care reports/EKG's, care home records)? Report findings @ -Reviewed prior admission laboratory studies Differential Diagnosis (chest pain, altered mental status, abdominal pain women, abdominal pain men, vaginal bleeding, weakness, fever, dyspnea, syncope, headache, dizziness, GI bleed, back pain, seizure, CVA, palpatations, mental health, musculoskeletal)? @ -[Differential Abdominal Pain Women: Appendicitis, Cholecystitis, diverticulosis, ischemic bowel, pancreatitis, hepatitis, UTI, gastroenteritis, AAA, incarcerated hernia, bowel obstruction, constipation, inflammatory bowel, hepatitis, peptic ulcer disease, splenic infarction, perforated viscus, vulvitis, ovarian torsion, PID, kidney stone, placenta abruption, this is not meant to be an all-inclusive list EKG interpreted by me (3pts min.). @ -None X-rays interpreted by me (1pt min.). @ -None done CT interpreted by me (1pt min.). @ -None done U/S interpreted by me (1pt. min.). @ -None done What testing was considered but not performed or refused? (CT, X-rays, U/S, labs)? Why? @ -None What meds were considered but not given or refused? Why? @ -None Did you discuss the management of the patient with other professionals (dl addison i.e. , PA, [facility]GER [facility], lab, RT, psych nurse, executive secretary social welfare, partition assembler, teacher, textile technical officer, pillowcase sewer)? Give summary @ -No Was smoking cessation discussed for >3mins.? @ -No Was critical care preformed (if so, how long)? @ -No Were there social determinants of health that impacted care today? How? (Homelessness, low income, unemployed, alcoholism, drug addiction, transportation, low edu. Level, literacy, decrease access to med. care, senior care, rehab)? @ -No Was there de-escalation of care discussed even if they declined (Discuss DNR or withdrawal of care, Hospice)? DNR status @ -No What co-morbidities impacted this encounter? (DM, HTN, Smoking, COPD, CAD, Cancer, CVA, ARF, Chemo, Hep., AIDS, mental health diagnosis, sleep apnea, morbid obesity)? @ -None Was patient admitted / discharged? Hospital course, mention meds given and route, prescriptions, significant lab abnormalities, going to OR and other pertinent info. @ -Discharge patient feels greatly improved she is asking for ice chips. Laboratory studies unremarkable patient is discharged in stable condition. Undiagnosed new problem with uncertain prognosis? @ -No Drug Therapy requiring intensive monitoring for toxicity (Heparin, Nitro, Insulin, Cardizem)? @ -No Were any procedures done? @ -No Diagnosis/symptom? @ -Nausea vomiting Acute, or Chronic, or Acute on Chronic? @ -Acute Uncomplicated (without systemic symptoms) or Complicated (systemic symptoms)? @ -Uncomplicated Side effects of treatment? @ -No Exacerbation, Progression, or Severe Exacerbation? @ -No Poses a threat to life or bodily function? How? (Chest pain, [place], VA, pneumonia, PE, COPD, DKA, ARF, appy, cholecystitis, CVA, Diverticulitis, Homicidal, Suicid al, threat to staff... and all critical care pts) @ -No - Lab Data Result diagrams: 09/21/23 14:36 09/21/23 15:56 Lab Results 09/21/23 09/21/23 09/21/23 Range/Units 14:36 15:38 15:56 WBC 12.0 H (3.8-10.6) k/uL RBC 4.66 (3.80-5.40) m/uL Hgb 14.9 (11.4-16.0) gm/dL Hct 44.8 (34.0-46.0) % MCV 96.1 (80.0-100.0) fL MCH 32.0 (25.0-35.0) pg MCHC 33.3 (31.0-37.0) g/dL RDW 12.0 (11.5-15.5) % Plt Count 262 (150-450) k/uL MPV 7.8 Neutrophils % 83 % Lymphocytes % 12 % Monocytes % 3 % Eosinophils % 1 % Basophils % 0 % Neutrophils # 10.0 H (1.3-7.7) k/uL Lymphocytes # 1.4 (1.0-4.8) k/uL Monocytes # 0.4 (0-1.0) k/uL Eosinophils # 0.1 (0-0.7) k/uL Basophils # 0.0 (0-0.2) k/uL Sodium 140 (137-145) mmol/L Potassium 3.5 (3.5-5.1) mmol/L Chloride 106 (98-107) mmol/L Carbon Dioxide 24 (22-30) mmol/L Anion Gap 10 mmol/L BUN 6 L (7-17) mg/dL Creatinine 0.64 (0.52-1.04) mg/dL Est GFR (CKD-EPI)AfAm >90 (>60 ml/min/1.73 sqM) Est GFR (CKD-EPI)NonAf >90 (>60 ml/min/1.73 sqM) Glucose 116 H (74-99) mg/dL Calcium 8.5 (8.4-10.2) mg/dL Total Bilirubin 0.9 (0.2-1.3) mg/dL AST 28 (14-36) U/L ALT 29 (4-34) U/L Alkaline Phosphatase 85 (38-126) U/L Total Protein 6.6 (6.3-8.2) g/dL Albumin 4.2 (3.5-5.0) g/dL Lipase 86 (23-300) U/L Urine Color Colorless Urine Appearance Cloudy H (Clear) Urine pH 7.0 (5.0-8.0) Ur Specific [place] 1.012 (1.001-1.035) Urine Protein Negative (Negative) Urine Glucose (UA) Negative (Negative) Urine Ketones Negative (Negative) Urine Blood Negative (Negative) Urine Nitrite Negative (Negative) Urine Bilirubin Negative (Negative) Urine Urobilinogen <2.0 (<2.0) mg/dL Ur Leukocyte Esterase Negative (Negative) Urine RBC 1 (0-5) /hpf Urine WBC 2 (0-5) /hpf Ur Squamous Epith Cells 1 (0-4) /hpf Urine Bacteria Few H (None) /hpf Urine Mucus Rare H (None) /hpf Disposition Clinical Impression: Nausea and vomiting Disposition: HOME SELF-CARE Condition: Stable Instructions (If sedation given, give patient instructions): Acute Nausea and Vomiting (ED) Additional Instructions: Please return to the Emergency Department if symptoms worsen or any other concerns. Prescriptions: Promethazine Suppository [Phenergan] 25 mg RECTAL QID PRN #15 supp PRN Reason: Nausea Is patient prescribed a controlled substance at d/c from ED?: No Referrals: Nonstaff,Physician [Primary Care Provider] - 1-2 days Time of Disposition: 16:24
[2023-09-21 15:49] LABS: Appearance,Urine Cloudy (Clear); Bacteria,Urine Few /hpf; Bilirubin,Urine Negative (Negative); Blood,Urine Negative (Negative); Color,Urine Colorless; Glucose,Urine (UA) Negative (Negative); Ketones,Urine Negative (Negative); Leukocyte Esterase,Urine Negative (Negative); Mucus,Urine Rare /hpf; Nitrite,Urine Negative (Negative); Protein,Urine Negative (Negative); RBC,Urine 1 /hpf (0-5); Specific Gravity,Urine 1.012 (1.001-1.035); Squamous Epithelial Cell,Urine 1 /hpf (0-4); Urobilinogen,Urine <2.0 mg/dL (<2.0); WBC,Urine 2 /hpf (0-5)
[2023-09-21 16:15] LABS: ALT 29 U/L (4-34); AST 28 U/L (14-36); African American GFR (CKD) >90 (>60 ml/min/1.73 sqM); Albumin 4.2 g/dL (3.5-5.0); Alkaline Phosphatase 85 U/L (38-126); Anion Gap 10 mmol/L; Blood Urea Nitrogen 6 mg/dL (7-17); Calcium 8.5 mg/dL (8.4-10.2); Carbon Dioxide 24 mmol/L (22-30); Chloride 106 mmol/L (98-107); Glucose 116 mg/dL (74-99); Lipase 86 U/L (23-300); Non-African American GFR(CKD) >90 (>60 ml/min/1.73 sqM); Potassium 3.5 mmol/L (3.5-5.1); Sodium 140 mmol/L (137-145); Total Bilirubin 0.9 mg/dL (0.2-1.3); Total Protein 6.6 g/dL (6.3-8.2)
[2023-09-21 16:29] VITALS: TEMP 98.1
[2023-09-21 17:12] VITALS: BP 121/72; PULSE 80
== END 2023-09-21 16:50 | disposition home or self-care (01) ==
LOC: EC 13:57
DX: R11.2 Nausea with vomiting, unspecified (principal); F17.290 Nicotine dependence, other tobacco product, uncomplicated; Z88.0 Allergy status to penicillin; Z88.1 Allergy status to other antibiotic agents; Z88.2 Allergy status to sulfonamides
CPT/HCPCS: 36415; 80053; 83690; 85025; 81001; 99284; 96374; 96375 ×3; 96361 ×2; J1200; J1885; C9113; J1790

== ENCOUNTER 2023-12-06 23:13 | Emergency (ER) | payer BC ==
[2023-12-06 23:22] VITALS: TEMP 98.3
--- NOTE | 2023-12-06 23:22 | ED ---
Nausea/Vomiting/Diarrhea HPI <Andrei Akers - Last Filed: 12/06/23 23:22> <Harvinder Griffiths - Last Filed: 12/07/23 04:44> - General Stated complaint: Vomiting Time Seen by Provider: 12/06/23 23:22 - History of Present Illness Initial comments: Quick note: 23-year-old female presenting with chief complaint of nausea and vomiting ongoing for about 3 days. States that she feels like "my hands and feet are locking up". Diffuse abdominal discomfort. (Andrei Akers) 23-year-old female presenting to the ED with complaints of nausea and vomiting onset yesterday. Also notes associated onset of diffuse abdominal pain however states it is worse in the left lower abdomen. no changes in bowel or bladder habits. Does note chills however denies fever. No chest pains or shortness of breath. No other complaints at this time. (Harvinder Griffiths) - Related Data Home Medications Medication Instructions Recorded Confirmed Dextroamphetamine/Amphetamine 20 mg PO BID@0800,1400 09/20/23 09/20/23 [Adderall] Previous Rx's Medication Instructions Recorded Ondansetron Odt [Zofran ODT] 4 mg PO Q8HR PRN #15 tab 09/19/23 Pantoprazole [Protonix] 40 mg PO BID #30 tab 09/20/23 Promethazine Suppository 25 mg RECTAL QID PRN #15 supp 09/21/23 [Phenergan] Cephalexin [Keflex] 500 mg PO Q6HR 5 Days #20 cap 12/07/23 Allergies Allergy/AdvReac Type Severity Reaction Status Date / Time erythromycin base Allergy Rash/Hives Verified 12/06/23 23:22 Penicillins Allergy Rash/Hives Verified 12/06/23 23:22 sulfamethoxazole Allergy Rash/Hives/ Verified 12/06/23 23:22 [From Bactrim] Anaphylaxis trimethoprim [From Bactrim] Allergy Rash/Hives/ Verified 12/06/23 23:22 Anaphylaxis Review of Systems ROS Other: All systems not noted in ROS Statement are negative. <Andrei Akers - Last Filed: 12/06/23 23:22> ROS Other: All systems not noted in ROS Statement are negative. <Harvinder Griffiths - Last Filed: 12/07/23 04:44> ROS Statement: Those systems with pertinent positive or pertinent negative responses have been documented in the HPI. Past Medical History Past Medical History: No Reported History History of Any Multi-Drug Resistant Organisms: None Reported Additional Past Surgical History / Comment(s): Brain tumor, breast tumor x2, Endometriosism, EGD/Colonoscopy, Bilateral ear Tympanostomyx3 Past Anesthesia/Blood Transfusion Reactions: No Reported Reaction Past Psychological History: No Psychological Hx Reported Smoking Status: Vaper Past Alcohol Use History: Occasional Past Drug Use History: Marijuana - Past Family History Father Family Medical History: Hypertension <Andrei Akers - Last Filed: 12/06/23 23:22> General Exam <Andrei Akers - Last Filed: 12/06/23 23:22> General appearance: alert, in no apparent distress Eye exam: Present: normal appearance Neck exam: Present: normal inspection Respiratory exam: Present: normal lung sounds bilaterally Cardiovascular Exam: Present: regular rate GI/Abdominal exam: Present: soft (Diffuse abdominal tenderness to palpation. No rebound guarding or rigidity. Left CVA tenderness to percussion.) Extremities exam: Present: normal inspection Back exam: Present: normal inspection Neurological exam: Present: alert, oriented X3 Skin exam: Present: warm, dry <Harvinder Griffiths - Last Filed: 12/07/23 04:44> - General Exam Comments Initial Comments: Visual Physical Exam Vital signs reviewed General: Well-appearing, nontoxic, no acute distress. Head: Normocephalic, atraumatic Eyes: PERRLA, EOMI ENT: Airway patent Chest: Nonlabored breathing Skin: No visual rash, normal skin tone Neuro: Alert and oriented 3 Musculoskeletal: No gross abnormalities (Andrei Akers) Course Vital Signs 12/06/23 23:20 Temperature 98.3 F Pulse Rate 95 Respiratory 20 Rate Blood Pressure 106/75 O2 Sat by Pulse 99 Oximetry Medical Decision Making <Andrei Akers - Last Filed: 12/06/23 23:22> - Lab Data Result diagrams: 12/07/23 00:20 12/07/23 00:20 <Harvinder Griffiths - Last Filed: 12/07/23 04:44> - Medical Decision Making I performed the quick note portion of this visit, electronically signed Andrei Orosco PA-C) Was pt. sent in by a medical professional or institution ([facility], [facility]ARE [facility]IT NURSE, urgent ca re, hospital, or [place] health care facility...) When possible be specific @ -No Did you speak to anyone other than the patient for history (EMS, parent, family, police, friend...)? What history was obtained from this source @ -No Did you review nursing and triage notes (agree or disagree)? Why? @ -I reviewed and agree with nursing and triage notes Were old charts reviewed (outside hosp., previous admission, EMS record, old EKG, old radiological studies, urgent care reports/EKG's, [place] health care facility records)? Report findings @ -No old charts were reviewed Differential Diagnosis (chest pain, altered mental status, abdominal pain women, abdominal pain men, vaginal bleeding, weakness, fever, dyspnea, syncope, headache, dizziness, GI bleed, back pain, seizure, CVA, palpatations, mental health, musculoskeletal)? @ -Differential Abdominal Pain Women: Appendicitis, Cholecystitis, diverticulosis, ischemic bowel, pancreatitis, hepatitis, UTI, gastroenteritis, AAA, incarcerated hernia, bowel obstruction, constipation, inflammatory bowel, hepatitis, peptic ulcer disease, splenic infarction, perforated viscus, vulvitis, ovarian torsion, PID, kidney stone, placenta abruption, this is not meant to be an all-inclusive list EKG interpreted by me (3pts min.). @ -None X-rays interpreted by me (1pt min.). @ -None done CT interpreted by me (1pt min.). @ -CT abdomen pelvis interpreted me which revealed no evidence of acute finding. U/S interpreted by me (1pt. min.). @ -None done What testing was considered but not performed or refused? (CT, X-rays, U/S, labs)? Why? @ -None What meds were considered but not given or refused? Why? @ -None Did you discuss the management of the patient with other professionals (professionals i.e. [facility], [facility]ARE [facility] NURSE, lab, RT, psych nurse, socially responsible investment adviser, server manager, teacher, intelligence officer basic, block and case maker)? Give summary @ -No Was smoking cessation discussed for >3mins.? @ -No Was critical care preformed (if so, how long)? @ -No Were there social determinants of health that impacted care today? How? (Homelessness, low income, unemployed, alcoholism, drug addiction, transportation, low edu. Level, literacy, decrease access to med. care, alf, rehab)? @ -No Was there de-escalation of care discussed even if they declined (Discuss DNR or withdrawal of care, Hospice)? DNR status @ -No What co-morbidities impacted this encounter? (DM, HTN, Smoking, COPD, CAD, Cancer, CVA, ARF, Chemo, Hep., AIDS, mental health diagnosis, sleep apnea, morbid obesity)? @ -None Was patient admitted / discharged? Hospital course, mention meds given and route, prescriptions, significant lab abnormalities, going to OR and other pertinent info. @ -Discharge 23-year-old female presented to the ED with complaints of nausea vomiting and generalized abdominal pain for the last 2 days. Denies urinary symptoms. Laboratory studies reviewed. CBC does show an elevated white blood cell count at 14.1 otherwise unremarkable. Chemistry panel remarkable for hypokalemia at 3.0. This was repleted. Otherwise largely unremarkable. UA does show some slight evidence of infection and ration 4+ ketones, trace leukocyte esterase, 16 white blood cells, rare bacteria. This is however contaminated with 19 epithelial cells. At this time patient would like treatment for urinary tract infection. Patient provided Keflex. Otherwise symptoms likely viral in nature. Discharged home in stable condition. Discussed strict return precautions with patient who verbalized agreement. Undiagnosed new problem with uncertain prognosis? @ -No Drug Therapy requiring intensive monitoring for toxicity (Heparin, Nitro, Insulin, Cardizem)? @ -No Were any procedures done? @ -No Diagnosis/symptom? @ -Gastroenteritis, possible UTI Acute, or Chronic, or Acute on Chronic? @ -Acute Uncomplicated (without systemic symptoms) or Complicated (systemic symptoms)? @ -Uncomplicated Side effects of treatment? @ -No Exacerbation, Progression, or Severe Exacerbation? @ -No Poses a threat to life or bodily function? How? (Chest pain, USA, MA, pneumonia, PE, COPD, DKA, ARF, appy, cholecystitis, CVA, Diverticulitis, Homicidal, Suicidal, threat to staff... and all critical care pts) @ -No (Harvinder Griffiths) - Lab Data Lab Results 12/06/23 12/07/23 12/07/23 Range/Units 23:45 00:02 00:02 WBC (3.8-10.6) k/uL RBC (3.80-5.40) m/uL Hgb (11.4-16.0) gm/dL Hct (34.0-46.0) % MCV (80.0-100.0) fL MCH (25.0-35.0) pg MCHC (31.0-37.0) g/dL RDW (11.5-15.5) % Plt Count (150-450) k/uL MPV Neutrophils % % Lymphocytes % % Monocytes % % Eosinophils % % Basophils % % Neutrophils # (1.3-7.7) k/uL Lymphocytes # (1.0-4.8) k/uL Monocytes # (0-1.0) k/uL Eosinophils # (0-0.7) k/uL Basophils # (0-0.2) k/uL Sodium (137-145) mmol/L Potassium (3.5-5.1) mmol/L Chloride (98-107) mmol/L Carbon Dioxide (22-30) mmol/L Anion Gap mmol/L BUN (7-17) mg/dL Creatinine (0.52-1.04) mg/dL Est GFR (CKD-EPI)AfAm (>60 ml/min/1.73 sqM) Est GFR (CKD-EPI)NonAf (>60 ml/min/1.73 sqM) Glucose (74-99) mg/dL Calcium (8.4-10.2) mg/dL Total Bilirubin (0.2-1.3) mg/dL AST (14-36) U/L ALT (4-34) U/L Alkaline Phosphatase (38-126) U/L Total Protein (6.3-8.2) g/dL Albumin (3.5-5.0) g/dL Amylase (30-110) U/L Lipase (23-300) U/L Urine Color Yellow Urine Appearance Cloudy H (Clear) Urine pH 7.0 (5.0-8.0) Ur Specific Pool 1.031 (1.001-1.035) Urine Protein 2+ H (Negative) Urine Glucose (UA) Negative (Negative) Urine Ketones 4+ H (Negative) Urine Blood Moderate H (Negative) Urine Nitrite Negative (Negative) Urine Bilirubin Negative (Negative) Urine Urobilinogen 2.0 (<2.0) mg/dL Ur Leukocyte Esterase Trace H (Negative) Urine RBC 8 H (0-5) /hpf Urine WBC 16 H (0-5) /hpf Ur Squamous Epith Cells 19 H (0-4) /hpf Urine Bacteria Rare H (None) /hpf Urine Mucus Rare H (None) /hpf Urine HCG, Qual Not Detected (Not Detectd) Influenza Type A (PCR) Not Detected (Not Detectd) Influenza Type B (PCR) Not Detected (Not Detectd) RSV (PCR) Not Detected (Not Detectd) SARS-CoV-2 (PCR) Not Detected (Not Detectd) 12/07/23 12/07/23 Range/Units 00:20 00:20 WBC 14.1 H (3.8-10.6) k/uL RBC 5.19 (3.80-5.40) m/uL Hgb 16.5 H (11.4-16.0) gm/dL Hct 49.3 H (34.0-46.0) % MCV 94.9 (80.0-100.0) fL MCH 31.7 (25.0-35.0) pg MCHC 33.5 (31.0-37.0) g/dL RDW 12.0 (11.5-15.5) % Plt Count 309 (150-450) k/uL MPV 7.3 Neutrophils % 82 % Lymphocytes % 10 % Monocytes % 7 % Eosinophils % 0 % Basophils % 0 % Neutrophils # 11.5 H (1.3-7.7) k/uL Lymphocytes # 1.4 (1.0-4.8) k/uL Monocytes # 1.0 (0-1.0) k/uL Eosinophils # 0.0 (0-0.7) k/uL Basophils # 0.0 (0-0.2) k/uL Sodium 136 L (137-145) mmol/L Potassium 3.0 L (3.5-5.1) mmol/L Chloride 84 L (98-107) mmol/L Carbon Dioxide 35 H (22-30) mmol/L Anion Gap 17 mmol/L BUN 17 (7-17) mg/dL Creatinine 0.91 (0.52-1.04) mg/dL Est GFR (CKD-EPI)AfAm >90 (>60 ml/min/1.73 sqM) Est GFR (CKD-EPI)NonAf 88 (>60 ml/min/1.73 sqM) Glucose 109 H (74-99) mg/dL Calcium 9.6 (8.4-10.2) mg/dL Total Bilirubin 1.8 H (0.2-1.3) mg/dL AST 63 H (14-36) U/L ALT 49 H (4-34) U/L Alkaline Phosphatase 103 (38-126) U/L Total Protein 8.9 H (6.3-8.2) g/dL Albumin 5.7 H (3.5-5.0) g/dL Amylase 75 (30-110) U/L Lipase 55 (23-300) U/L Urine Color Urine Appearance (Clear) Urine pH (5.0-8.0) Ur Specific Pool (1.001-1.035) Urine Protein (Negative) Urine Glucose (UA) (Negative) Urine Ketones (Negative) Urine Blood (Negative) Urine Nitrite (Negative) Urine Bilirubin (Negative) Urine Urobilinogen (<2.0) mg/dL Ur Leukocyte Esterase (Negative) Urine RBC (0-5) /hpf Urine WBC (0-5) /hpf Ur Squamous Epith Cells (0-4) /hpf Urine Bacteria (None) /hpf Urine Mucus (None) /hpf Urine HCG, Qual (Not Detectd) Influenza Type A (PCR) (Not Detectd) Influenza Type B (PCR) (Not Detectd) RSV (PCR) (Not Detectd) SARS-CoV-2 (PCR) (Not Detectd) Disposition <Andrei Akers - Last Filed: 12/06/23 23:22> Is patient prescribed a controlled substance at d/c from ED?: No Time of Disposition: 04:44 <Harvinder Griffiths - Last Filed: 12/07/23 04:44> Clinical Impression: Gastroenteritis, UTI (urinary tract infection) Disposition: HOME SELF-CARE Condition: Good Instructions (If sedation given, give patient instructions): Gastroenteritis (ED), Urinary Tract Infection in Women (DC) Additional Instructions: Please return to the Emergency Department if symptoms worsen or any other concerns. Please follow-up with your PCP. Prescriptions: Cephalexin [Keflex] 500 mg PO Q6HR 5 Days #20 cap Referrals: None,Stated [Primary Care Provider] - 1-2 days
[2023-12-07 00:14] LABS: Appearance,Urine Cloudy (Clear); Bacteria,Urine Rare /hpf; Bilirubin,Urine Negative (Negative); Blood,Urine Moderate (Negative); Color,Urine Yellow; Glucose,Urine (UA) Negative (Negative); Ketones,Urine 4+ (Negative); Leukocyte Esterase,Urine Trace (Negative); Mucus,Urine Rare /hpf; Nitrite,Urine Negative (Negative); Protein,Urine 2+ (Negative); RBC,Urine 8 /hpf (0-5); Specific Gravity,Urine 1.031 (1.001-1.035); Squamous Epithelial Cell,Urine 19 /hpf (0-4); WBC,Urine 16 /hpf (0-5)
[2023-12-07] MEDS: ONDANSETRON 4 MG/2 ML VIAL IVP STA (00:25)
[2023-12-07] MEDS: KETOROLAC 15 MG/ML 1 ML VIAL IVP STA (00:27)
[2023-12-07] MEDS: SODIUM CHLORIDE 0.9% 1,000 ML BAG IV STA ×2 (00:28→03:38)
[2023-12-07] MEDS: ONDANSETRON ODT 4 MG TAB PO STA (00:28)
[2023-12-07 00:45] LABS: Basophils % (A) 0 %; Eosinophils % (A) 0 %; HCT 49.3 % (34.0-46.0); HGB 16.5 gm/dL (11.4-16.0); Lymphocytes # (A) 1.4 k/uL (1.0-4.8); Lymphocytes % (A) 10 %; MCH 31.7 pg (25.0-35.0); MCHC 33.5 g/dL (31.0-37.0); MCV 94.9 fL (80.0-100.0); Mean Platelet Volume 7.3; Monocytes % (A) 7 %; Neutrophils # (A) 11.5 k/uL (1.3-7.7); Neutrophils % (A) 82 %; Platelet Count 309 k/uL (150-450); RBC 5.19 m/uL (3.80-5.40); WBC 14.1 k/uL (3.8-10.6)
[2023-12-07 01:07] LABS: ALT 49 U/L (4-34); AST 63 U/L (14-36); African American GFR (CKD) >90 (>60 ml/min/1.73 sqM); Albumin 5.7 g/dL (3.5-5.0); Alkaline Phosphatase 103 U/L (38-126); Amylase 75 U/L (30-110); Anion Gap 17 mmol/L; Blood Urea Nitrogen 17 mg/dL (7-17); Calcium 9.6 mg/dL (8.4-10.2); Carbon Dioxide 35 mmol/L (22-30); Chloride 84 mmol/L (98-107); Glucose 109 mg/dL (74-99); Lipase 55 U/L (23-300); Non-African American GFR(CKD) 88 (>60 ml/min/1.73 sqM); Sodium 136 mmol/L (137-145); Total Bilirubin 1.8 mg/dL (0.2-1.3); Total Protein 8.9 g/dL (6.3-8.2)
[2023-12-07] MEDS: POTASSIUM CHLORIDE 20 MEQ in WATER FOR INJECTION 1 100ML.BAG IVPB STA (01:36)
[2023-12-07] MEDS: METOCLOPRAMIDE 5 MG/ML 2 ML VIAL IVP STA (01:40)
[2023-12-07] MEDS: HYDROmorphone 0.5 MG/0.5 ML SYRINGE IVP STA (01:41)
--- NOTE | 2023-12-07 04:08 | CT ---
EXAM: CT Abdomen and Pelvis Without Intravenous Contrast CLINICAL HISTORY: ITS.REASON CT Reason: diffuse abdominal pain worse in LLQ, l flank pain TECHNIQUE: Axial computed tomography images of the abdomen and pelvis without intravenous contrast. CTDI is 4.9 mGy and DLP is 259.7 mGy-cm. This CT exam was performed using one or more of the following dose reduction techniques: automated exposure control, adjustment of the mA and/or kV according to patient size, and/or use of iterative reconstruction technique. Coronal and sagittal reformatted images were created and reviewed. 392 images. Lack of contrast decreases the sensitivity of this exam. COMPARISON: No relevant prior studies available. FINDINGS: Lung bases: 3 mm subpleural sub-solid nodular opacity in lateral right lower lobe is incidentally noted. No followup recommended. ABDOMEN: Liver: Unremarkable. Gallbladder and bile ducts: Unremarkable. No calcified stones. No ductal dilation. Pancreas: Unremarkable. No ductal dilation. Spleen: Unremarkable. No splenomegaly. Adrenals: Unremarkable. No mass. Kidneys and ureters: Unremarkable. No obstructing stones. No hydronephrosis. Stomach and bowel: Unremarkable. No obstruction. No mucosal thickening. PELVIS: Appendix: No findings to suggest acute appendicitis. Bladder: Unremarkable. No stones. Reproductive: Unremarkable as visualized. ABDOMEN and PELVIS: Intraperitoneal space: Unremarkable. No free air. No significant fluid collection. Bones/joints: Mild thoracolumbar scoliosis convex to the right, can be positional. Soft tissues: Scant mesenteric fat limits evaluation of mesenteric inflammation. Vasculature: Unremarkable. No abdominal aortic aneurysm. Lymph nodes: Unremarkable. No enlarged lymph nodes. IMPRESSION: No acute findings. No obstructive uropathy or stone in the collecting system.
[2023-12-07] MEDS: IBUPROFEN 600 MG STARTER PACK 4 TAB BTL PO STA (04:52)
[2023-12-07] MEDS: ONDANSETRON 4 MG ODT STARTER PACK 2 TAB BTL PO STA (04:52)
[2023-12-07] MEDS: ACETAMINOPHEN TAB 500 MG TAB PO STA (04:53)
[2023-12-07 04:59] VITALS: BP 109/53; PULSE 77; RESP 16
== END 2023-12-07 04:59 | disposition home or self-care (01) ==
LOC: EC 23:13
DX: K52.9 Noninfective gastroenteritis and colitis, unspecified (principal); N39.0 Urinary tract infection, site not specified; F17.290 Nicotine dependence, other tobacco product, uncomplicated; F12.90 Cannabis use, unspecified, uncomplicated; Z88.0 Allergy status to penicillin; Z88.2 Allergy status to sulfonamides; Z88.6 Allergy status to analgesic agent; Z88.1 Allergy status to other antibiotic agents
CPT/HCPCS: 36415; 80053; 82150; 83690; 85025; 81001; 81025; 87636; 74176; 99284; 96365; 96366; 96375 ×4; 96361 ×2; J2765; J3480; J2405; J1885; S0119; J1170

== ENCOUNTER 2023-12-08 11:57 | Emergency (ER) | payer BC ==
[2023-12-08 12:07] VITALS: TEMP 98.3
[2023-12-08] MEDS: SODIUM CHLORIDE 0.9% 2,000 ML IV STA (13:29)
[2023-12-08] MEDS: PROCHLORPERAZINE INJ 10 MG/2 ML VIAL IVP STA (13:29)
[2023-12-08] MEDS: FAMOTIDINE 20 MG/2 ML VIAL IV STA (13:29)
--- NOTE | 2023-12-08 13:40 | ED ---
Nausea/Vomiting/Diarrhea HPI - General Chief complaint: Abdominal Pain Stated complaint: Abd Pain Time Seen by Provider: 12/08/23 12:59 Source: patient, RN notes reviewed Mode of arrival: ambulatory Limitations: no limitations - History of Present Illness Initial comments: This is a 23-year-old female who presents to the emergency department for abdominal pain, nausea, and vomiting. States that she was at a wedding this past weekend and had too much alcohol to drink. Shortly afterward she started to develop persistent nausea and vomiting. She was at the emergency department yesterday and was found to have low potassium, which she suspected. This was corrected and she was given medication for the nausea. When she was discharged home she tried taking the Zofran that she was given, but states that this was not very effective and she continued to have nausea and vomiting. Reports persistent abdominal discomfort, which she attributes to the vomiting. States that she had a negative CT scan when she was here yesterday. Denies any fevers or chills or changes in bowel/bladder habits. MD complaint: nausea, vomiting - Related Data Home Medications Medication Instructions Recorded Confirmed Dextroamphetamine/Amphetamine 20 mg PO BID@0800,1400 09/20/23 09/20/23 [Adderall] Previous Rx's Medication Instructions Recorded Ondansetron Odt [Zofran ODT] 4 mg PO Q8HR PRN #15 tab 09/19/23 Pantoprazole [Protonix] 40 mg PO BID #30 tab 09/20/23 Promethazine Suppository 25 mg RECTAL QID PRN #15 supp 09/21/23 [Phenergan] Acetaminophen 500 mg PO Q6H PRN #60 tab 12/07/23 Cephalexin [Keflex] 500 mg PO Q6HR 5 Days #20 cap 12/07/23 Ibuprofen [Motrin] 600 mg PO Q8HR PRN #30 tab 12/07/23 Ondansetron Odt [Zofran Odt] 4 mg PO Q8HR PRN #10 tab 12/07/23 Metoclopramide [Reglan] 10 mg PO Q6H PRN #30 tab 12/08/23 Ondansetron Odt [Zofran Odt] 4 mg PO Q8HR PRN #30 tab 12/08/23 Allergies Allergy/AdvReac Type Severity Reaction Status Date / Time erythromycin base Allergy Rash/Hives Verified 12/08/23 12:07 Penicillins Allergy Rash/Hives Verified 12/08/23 12:07 sulfamethoxazole Allergy Rash/Hives/ Verified 12/08/23 12:07 [From Bactrim] Anaphylaxis trimethoprim [From Bactrim] Allergy Rash/Hives/ Verified 12/08/23 12:07 Anaphylaxis Review of Systems ROS Statement: Those systems with pertinent positive or pertinent negative responses have been documented in the HPI. ROS Other: All systems not noted in ROS Statement are negative. Past Medical History Past Medical History: No Reported History Additional Past Medical History / Comment(s): endomertriosis History of Any Multi-Drug Resistant Organisms: None Reported Additional Past Surgical History / Comment(s): Brain tumor, breast tumor x2, En dometriosism, EGD/Colonoscopy, Bilateral ear Tympanostomyx3 Past Anesthesia/Blood Transfusion Reactions: No Reported Reaction Past Psychological History: No Psychological Hx Reported Smoking Status: Vaper Past Alcohol Use History: Occasional Past Drug Use History: Marijuana - Past Family History Father Family Medical History: Hypertension General Exam Limitations: no limitations General appearance: alert, in no apparent distress Head exam: Present: atraumatic, normocephalic, normal inspection Respiratory exam: Present: normal lung sounds bilaterally. Absent: respiratory distress, wheezes, rales, rhonchi, stridor Cardiovascular Exam: Present: regular rate, normal rhythm, normal heart sounds. Absent: systolic murmur, diastolic murmur, rubs, gallop, clicks GI/Abdominal exam: Present: soft, normal bowel sounds. Absent: distended, tenderness, guarding, rebound, rigid Neurological exam: Present: alert, oriented X3, CN II-XII intact Psychiatric exam: Present: normal affect, normal mood Skin exam: Present: warm, dry, intact, normal color. Absent: rash Course Vital Signs 12/08/23 12/08/23 12:05 15:46 Temperature 98.3 F Pulse Rate 86 82 Respiratory 18 16 Rate Blood Pressure 144/91 117/75 O2 Sat by Pulse 96 98 Oximetry Medical Decision Making - Medical Decision Making This is a 23 year old female who presents to the emergency department for nausea and vomiting. Was pt. sent in by a medical professional or institution? @ -No Did you speak to anyone other than the patient for history? @ -No Did you review nursing and triage notes? @ -Yes, and I agree, it is accurate with regards to the patient's symptoms. Were old charts reviewed? @ -CT scan of the abdomen and pelvis from yesterday demonstrating no acute process. Differential Diagnosis? @ -Differential Nausea and Vomiting: Gastroenteritis, cholecystitis, appendicitis, pancreatitis, migraine, benign positional vertigo, food borne illness, pyelonephritis, irritable bowel syndrome, influenza, Covid, GERD, incarcerated hernia, intestinal obstruction, this is not meant to be an all-inclusive list. EKG interpreted by me (3pts min.)? @ -Not obtained X-rays interpreted by me (1pt min.)? @ -Not obtained CT interpreted by me (1pt min.)? @ -Not obtained U/S interpreted by me (1pt. min.)? @ -Not obtained What testing was considered but not performed? (CT, X-rays, U/S, labs)? Why? @ -None What meds were considered but not given? Why? @ -None Did you discuss the management of the patient with other professionals? @ -No Did you reconcile home meds? @ -No Was smoking cessation discussed for >3mins.? @ -No Was critical care preformed (if so, how long)? @ -No Were there social determinants of health that impacted care today? How? (Homelessness, low income, unemployed, alcoholism, drug addiction, transportation, low edu. Level, literacy, decrease access to med. care, [facility], rehab)? @ -No Was there de-escalation of care discussed even if they declined? (Discuss DNR or withdrawal of care, Hospice)? @ -No What co-morbidities impacted this encounter? (DM, HTN, Smoking, COPD, CAD, Cancer, CVA, Hep., AIDS, mental health diagnosis, sleep apnea, morbid obesity)? @ -None Was patient admitted / discharged? @ -Discharged. Lab work demonstrates mild hypokalemia with a potassium of 3.1. LFTs are stable when compared with prior. Urinalysis negative for signs of infection. CT scan of the abdomen and pelvis from yesterday was reviewed demonstrating no acute process. She was initially treated with IV fluids and Compazine. She had moderate improvement in nausea, but states that it was still present. We then tried a dose of Reglan, which she found much more beneficial. She was tolerating oral intake afterwards and felt stable for discharge home. Prescription for both Reglan and Zofran provided with dosing instructions reviewed. She is advised to slowly advance her diet as tolerated and remain well-hydrated. Undiagnosed new problem with uncertain prognosis? @ -None Drug Therapy requiring intensive monitoring for toxicity (Heparin, Nitro, Insulin, Cardizem)? @ -None Were any procedures done? @ -None Diagnosis/symptom? @ -Nausea and vomiting, abdominal pain Acute, or Chronic, or Acute on Chronic? @ -Acute Uncomplicated (without systemic symptoms) or Complicated (systemic symptoms)? @ -Uncomplicated Side effects of treatment? @ -None Exacerbation, Progression, or Severe Exacerbation] @ -Not applicable Poses a threat to life or bodily function? @ -No Return precautions reviewed in depth, the patient is instructed to return to the emergency department with any new, worsening, or concerning symptoms. Patient verbalized understanding. This case was discussed in detail with the attending ED physician, Dr. Montaño. Presentation, findings, and treatment plan discussed in detail as well. - Lab Data Result diagrams: 12/08/23 13:05 12/08/23 13:05 Lab Results 12/08/23 12/08/23 12/08/23 Range/Units 13:05 13:05 13:05 WBC 9.9 (3.8-10.6) k/uL RBC 4.66 (3.80-5.40) m/uL Hgb 14.8 (11.4-16.0) gm/dL Hct 44.3 (34.0-46.0) % MCV 95.1 (80.0-100.0) fL MCH 31.7 (25.0-35.0) pg MCHC 33.4 (31.0-37.0) g/dL RDW 11.9 (11.5-15.5) % Plt Count 246 (150-450) k/uL MPV 7.4 Neutrophils % 88 % Lymphocytes % 8 % Monocytes % 3 % Eosinophils % 0 % Basophils % 0 % Neutrophils # 8.7 H (1.3-7.7) k/uL Lymphocytes # 0.8 L (1.0-4.8) k/uL Monocytes # 0.3 (0-1.0) k/uL Eosinophils # 0.0 (0-0.7) k/uL Basophils # 0.0 (0-0.2) k/uL Sodium 134 L (137-145) mmol/L Potassium 3.1 L (3.5-5.1) mmol/L Chloride 92 L (98-107) mmol/L Carbon Dioxide 31 H (22-30) mmol/L Anion Gap 11 mmol/L BUN 12 (7-17) mg/dL Creatinine 0.67 (0.52-1.04) mg/dL Est GFR (CKD-EPI)AfAm >90 (>60 ml/min/1.73 sqM) Est GFR (CKD-EPI)NonAf >90 (>60 ml/min/1.73 sqM) Glucose 93 (74-99) mg/dL Plasma Lactic Acid Osei 0.8 (0.7-2.0) mmol/L Calcium 9.1 (8.4-10.2) mg/dL Total Bilirubin 1.6 H (0.2-1.3) mg/dL AST 66 H (14-36) U/L ALT 46 H (4-34) U/L Alkaline Phosphatase 79 (38-126) U/L Total Protein 7.4 (6.3-8.2) g/dL Albumin 5.0 (3.5-5.0) g/dL Amylase 84 (30-110) U/L Lipase 60 (23-300) U/L Urine Color Urine Appearance (Clear) Urine pH (5.0-8.0) Ur Specific [place] (1.001-1.035) Urine Protein (Negative) Urine Glucose (UA) (Negative) Urine Ketones (Negative) Urine Blood (Negative) Urine Nitrite (Negative) Urine Bilirubin (Negative) Urine Urobilinogen (<2.0) mg/dL Ur Leukocyte Esterase (Negative) Urine WBC (0-5) /hpf Ur Squamous Epith Cells (0-4) /hpf Urine Mucus (None) /hpf Urine HCG, Qual (Not Detectd) Urine Opiates Screen (NotDetected) Ur Oxycodone Screen (NotDetected) Urine Methadone Screen (NotDetected) Ur Barbiturates Screen (NotDetected) U Tricyclic Antidepress (NotDetected) Ur Phencyclidine Scrn (NotDetected) Ur Amphetamines Screen (NotDetected) U Methamphetamines Scrn (NotDetected) U Benzodiazepines Scrn (NotDetected) Urine Cocaine Screen (NotDetected) U Marijuana (THC) Screen (NotDetected) 12/08/23 12/08/23 Range/Units 13:53 13:53 WBC (3.8-10.6) k/uL RBC (3.80-5.40) m/uL Hgb (11.4-16.0) gm/dL Hct (34.0-46.0) % MCV (80.0-100.0) fL MCH (25.0-35.0) pg MCHC (31.0-37.0) g/dL RDW (11.5-15.5) % Plt Count (150-450) k/uL MPV Neutrophils % % Lymphocytes % % Monocytes % % Eosinophils % % Basophils % % Neutrophils # (1.3-7.7) k/uL Lymphocytes # (1.0-4.8) k/uL Monocytes # (0-1.0) k/uL Eosinophils # (0-0.7) k/uL Basophils # (0-0.2) k/uL Sodium (137-145) mmol/L Potassium (3.5-5.1) mmol/L Chloride (98-107) mmol/L Carbon Dioxide (22-30) mmol/L Anion Gap mmol/L BUN (7-17) mg/dL Creatinine (0.52-1.04) mg/dL Est GFR (CKD-EPI)AfAm (>60 ml/min/1.73 sqM) Est GFR (CKD-EPI)NonAf (>60 ml/min/1.73 sqM) Glucose (74-99) mg/dL Plasma Lactic Acid Osei (0.7-2.0) mmol/L Calcium (8.4-10.2) mg/dL Total Bilirubin (0.2-1.3) mg/dL AST (14-36) U/L ALT (4-34) U/L Alkaline Phosphatase (38-126) U/L Total Protein (6.3-8.2) g/dL Albumin (3.5-5.0) g/dL Amylase (30-110) U/L Lipase (23-300) U/L Urine Color Light Yellow Urine Appearance Cloudy H (Clear) Urine pH 8.0 (5.0-8.0) Ur Specific [place] 1.019 (1.001-1.035) Urine Protein Trace H (Negative) Urine Glucose (UA) Negative (Negative) Urine Ketones 4+ H (Negative) Urine Blood Negative (Negative) Urine Nitrite Negative (Negative) Urine Bilirubin Negative (Negative) Urine Urobilinogen 2.0 (<2.0) mg/dL Ur Leukocyte Esterase Negative (Negative) Urine WBC 3 (0-5) /hpf Ur Squamous Epith Cells 2 (0-4) /hpf Urine Mucus Rare H (None) /hpf Urine HCG, Qual Not Detected (Not Detectd) Urine Opiates Screen Not Detected (NotDetected) Ur Oxycodone Screen Not Detected (NotDetected) Urine Methadone Screen Not Detected (NotDetected) Ur Barbiturates Screen Not Detected (NotDetected) U Tricyclic Antidepress Not Detected (NotDetected) Ur Phencyclidine Scrn Not Detected (NotDetected) Ur Amphetamines Screen Not Detected (NotDetected) U Methamphetamines Scrn Not Detected (NotDetected) U Benzodiazepines Scrn Not Detected (NotDetected) Urine Cocaine Screen Not Detected (NotDetected) U Marijuana (THC) Screen Detected H (NotDetected) - Radiology Data Radiology results: report reviewed, image reviewed Disposition Clinical Impression: Nausea and vomiting, Hypokalemia Disposition: HOME SELF-CARE Instructions (If sedation given, give patient instructions): Acute Nausea and Vomiting (ED) Additional Instructions: Return to the emergency department with any new, worsening, or concerning symptoms. You can take the Reglan up to every 6 hours as needed for nausea and vomiting. If that is not effective you can also take the Zofran up to every 8 hours. Slowly advance your diet as tolerated and remain well-hydrated. Follow up with your primary care provider in 1-2 days. Prescriptions: Metoclopramide [Reglan] 10 mg PO Q6H PRN #30 tab PRN Reason: Nausea And Vomiting Ondansetron Odt [Zofran Odt] 4 mg PO Q8HR PRN #30 tab PRN Reason: Nausea And Vomiting Is patient prescribed a controlled substance at d/c from ED?: No Referrals: None,Stated [Primary Care Provider] - 1-2 days Time of Disposition: 15:27
[2023-12-08 13:41] LABS: HCT 44.3 % (34.0-46.0); HGB 14.8 gm/dL (11.4-16.0); MCH 31.7 pg (25.0-35.0); MCHC 33.4 g/dL (31.0-37.0); MCV 95.1 fL (80.0-100.0); Platelet Count 246 k/uL (150-450); RBC 4.66 m/uL (3.80-5.40); RDW 11.9 % (11.5-15.5); WBC 9.9 k/uL (3.8-10.6)
[2023-12-08 13:42] LABS: Basophils % (A) 0 %; Eosinophils % (A) 0 %; Lymphocytes # (A) 0.8 k/uL (1.0-4.8); Lymphocytes % (A) 8 %; Mean Platelet Volume 7.4; Monocytes # (A) 0.3 k/uL (0-1.0); Monocytes % (A) 3 %; Neutrophils # (A) 8.7 k/uL (1.3-7.7); Neutrophils % (A) 88 %
[2023-12-08 14:00] LABS: ALT 46 U/L (4-34); AST 66 U/L (14-36); African American GFR (CKD) >90 (>60 ml/min/1.73 sqM); Alkaline Phosphatase 79 U/L (38-126); Amylase 84 U/L (30-110); Anion Gap 11 mmol/L; Blood Urea Nitrogen 12 mg/dL (7-17); Calcium 9.1 mg/dL (8.4-10.2); Carbon Dioxide 31 mmol/L (22-30); Chloride 92 mmol/L (98-107); Glucose 93 mg/dL (74-99); Lipase 60 U/L (23-300); Non-African American GFR(CKD) >90 (>60 ml/min/1.73 sqM); Potassium 3.1 mmol/L (3.5-5.1); Sodium 134 mmol/L (137-145); Total Bilirubin 1.6 mg/dL (0.2-1.3); Total Protein 7.4 g/dL (6.3-8.2)
[2023-12-08 14:15] LABS: Appearance,Urine Cloudy (Clear); Bilirubin,Urine Negative (Negative); Blood,Urine Negative (Negative); Color,Urine Light Yellow; Glucose,Urine (UA) Negative (Negative); Ketones,Urine 4+ (Negative); Leukocyte Esterase,Urine Negative (Negative); Mucus,Urine Rare /hpf; Nitrite,Urine Negative (Negative); Protein,Urine Trace (Negative); Specific Gravity,Urine 1.019 (1.001-1.035); Squamous Epithelial Cell,Urine 2 /hpf (0-4); WBC,Urine 3 /hpf (0-5)
[2023-12-08] MEDS: METOCLOPRAMIDE 5 MG/ML 2 ML VIAL IVP STA (14:31)
[2023-12-08 14:32] LABS: Amphetamine Screen,Urine Not Detected (NotDetected); Barbiturate Screen,Urine Not Detected (NotDetected); Benzodiazepines Screen,Urine Not Detected (NotDetected); Cocaine Screen,Urine Not Detected (NotDetected); Methadone Screen, Urine Not Detected (NotDetected); Opiate Screen,Urine Not Detected (NotDetected); Oxycodone Screen, Urine Not Detected (NotDetected); Phencyclidine Screen,Urine Not Detected (NotDetected); Tricyclic Antidepressant,Urine Not Detected (NotDetected); Urn Cannabinoid Scrn Detected (NotDetected)
[2023-12-08] MEDS: POTASSIUM CHLORIDE ER 20 MEQ TAB.ER PO STA (14:32)
[2023-12-08 15:47] VITALS: BP 117/75; PULSE 82; RESP 16
== END 2023-12-08 15:47 | disposition home or self-care (01) ==
LOC: EC 11:57
DX: E87.6 Hypokalemia (principal); F17.290 Nicotine dependence, other tobacco product, uncomplicated; F12.90 Cannabis use, unspecified, uncomplicated; Z88.0 Allergy status to penicillin; Z88.1 Allergy status to other antibiotic agents; Z88.2 Allergy status to sulfonamides; Z88.6 Allergy status to analgesic agent
CPT/HCPCS: 36415; 80053; 82150; 83605; 83690; 85025; 81001; 81025; 80306; 99284; 96374; 96375 ×2; 96361 ×2; J0780; J2765; J3490

== ENCOUNTER 2024-04-02 13:10 | Emergency (ER) | payer BC ==
[2024-04-02 13:32] VITALS: TEMP 97.3
[2024-04-02 14:03] LABS: Basophils % (A) 0 %; Eosinophils % (A) 0 %; HCT 45.1 % (34.0-46.0); HGB 14.9 gm/dL (11.4-16.0); Lymphocytes # (A) 0.6 k/uL (1.0-4.8); Lymphocytes % (A) 5 %; MCH 31.4 pg (25.0-35.0); MCHC 33.1 g/dL (31.0-37.0); MCV 94.9 fL (80.0-100.0); Mean Platelet Volume 6.8; Monocytes # (A) 0.3 k/uL (0-1.0); Monocytes % (A) 2 %; Neutrophils # (A) 11.5 k/uL (1.3-7.7); Neutrophils % (A) 92 %; Platelet Count 305 k/uL (150-450); RBC 4.76 m/uL (3.80-5.40); RDW 11.9 % (11.5-15.5); WBC 12.6 k/uL (3.8-10.6)
[2024-04-02] MEDS: diphenhydrAMINE 50 MG/ML 1 ML VIAL IVP STA (14:06)
[2024-04-02] MEDS: KETOROLAC 15 MG/ML 1 ML VIAL IVP STA (14:07)
[2024-04-02] MEDS: FAMOTIDINE 20 MG/2 ML VIAL IV STA (14:07)
[2024-04-02] MEDS: SODIUM CHLORIDE 0.9% 2,000 ML IV STA (14:08)
[2024-04-02] MEDS: METOCLOPRAMIDE 5 MG/ML 2 ML VIAL IVP STA (14:08)
[2024-04-02 14:17] LABS: ALT 26 U/L (4-34); AST 42 U/L (14-36); African American GFR (CKD) >90 (>60 ml/min/1.73 sqM); Albumin 5.4 g/dL (3.5-5.0); Alkaline Phosphatase 76 U/L (38-126); Anion Gap 10 mmol/L; Blood Urea Nitrogen 10 mg/dL (7-17); Calcium 9.8 mg/dL (8.4-10.2); Carbon Dioxide 26 mmol/L (22-30); Chloride 105 mmol/L (98-107); Glucose 139 mg/dL (74-99); Non-African American GFR(CKD) >90 (>60 ml/min/1.73 sqM); Potassium 3.9 mmol/L (3.5-5.1); Sodium 141 mmol/L (137-145); Total Bilirubin 1.1 mg/dL (0.2-1.3); Total Protein 8.3 g/dL (6.3-8.2)
[2024-04-02] MEDS: droPERidol 5 MG/2 ML VIAL IVP ONE (14:57)
--- NOTE | 2024-04-02 15:50 | ED ---
Nausea/Vomiting/Diarrhea HPI - General Chief complaint: Nausea/Vomiting/Diarrhea Stated complaint: vomiting Time Seen by Provider: 04/02/24 13:33 Source: patient, RN notes reviewed Mode of arrival: ambulatory Limitations: no limitations - History of Present Illness Initial comments: 23-year-old female presents emergency department complaint nausea vomiting. Patient states that she drank too much last night states has not been able to keep rending down patient is in the room currently chugging water. Patient also states that she has a sensitive stomach recurrent vomiting issues which is not not the first time she states that she is a marijuana user. Patient states she has no localized abdominal pain denies any chance of denies fever no chest pain no other complaints. - Related Data Home Medications Medication Instructions Recorded Confirmed Dextroamphetamine/Amphetamine 20 mg PO BID@0800,1400 09/20/23 09/20/23 [Adderall] Previous Rx's Medication Instructions Recorded Ondansetron Odt [Zofran ODT] 4 mg PO Q8HR PRN #15 tab 09/19/23 Pantoprazole [Protonix] 40 mg PO BID #30 tab 09/20/23 Promethazine Suppository 25 mg RECTAL QID PRN #15 supp 09/21/23 [Phenergan] Acetaminophen 500 mg PO Q6H PRN #60 tab 12/07/23 Cephalexin [Keflex] 500 mg PO Q6HR 5 Days #20 cap 12/07/23 Ibuprofen [Motrin] 600 mg PO Q8HR PRN #30 tab 12/07/23 Ondansetron Odt [Zofran Odt] 4 mg PO Q8HR PRN #10 tab 12/07/23 Metoclopramide [Reglan] 10 mg PO Q6H PRN #30 tab 12/08/23 Ondansetron Odt [Zofran Odt] 4 mg PO Q8HR PRN #30 tab 12/08/23 Ondansetron Odt [Zofran Odt] 4 mg PO Q8HR PRN #10 tab 04/02/24 Allergies Allergy/AdvReac Type Severity Reaction Status Date / Time erythromycin base Allergy Rash/Hives Verified 12/08/23 12:07 Penicillins Allergy Rash/Hives Verified 12/08/23 12:07 sulfamethoxazole Allergy Rash/Hives/ Verified 12/08/23 12:07 [From Bactrim] Anaphylaxis trimethoprim [From Bactrim] Allergy Rash/Hives/ Verified 12/08/23 12:07 Anaphylaxis Review of Systems ROS Statement: Those systems with pertinent positive or pertinent negative responses have been documented in the HPI. ROS Other: All systems not noted in ROS Statement are negative. Past Medical History Past Medical History: No Reported History Additional Past Medical History / Comment(s): endomertriosis. benign breast tumors. benign brain tumor History of Any Multi-Drug Resistant Organisms: None Reported Additional Past Surgical History / Comment(s): Brain tumor, breast tumor x2, Endometriosism, EGD/Colonoscopy, Bilateral ear Tympanostomyx3 Past Anesthesia/Blood Transfusion Reactions: No Reported Reaction Past Psychological History: No Psychological Hx Reported Smoking Status: Vaper Past Alcohol Use History: Occasional Past Drug Use History: Marijuana - Past Family History Father Family Medical History: Hypertension General Exam Limitations: no limitations General appearance: alert, in no apparent distress Head exam: Present: atraumatic, normocephalic, normal inspection Eye exam: Present: normal appearance, PERRL, EOMI. Absent: scleral icterus, conjunctival injection, periorbital swelling ENT exam: Present: normal exam, mucous membranes moist Neck exam: Present: normal inspection. Absent: tenderness, meningismus, lymphadenopathy Respiratory exam: Present: normal lung sounds bilaterally. Absent: respiratory distress, wheezes, rales, rhonchi, stridor Cardiovascular Exam: Present: regular rate, normal rhythm, normal heart sounds. Absent: systolic murmur, diastolic murmur, rubs, gallop, clicks GI/Abdominal exam: Present: soft, normal bowel sounds. Absent: distended, tenderness, guarding, rebound, rigid Course Vital Signs 04/02/24 13:28 Temperature 97.3 F L Pulse Rate 72 Respiratory 18 Rate Blood Pressure 131/83 O2 Sat by Pulse 100 Oximetry Medical Decision Making - Medical Decision Making Was pt. sent in by a medical professional or institution (, PA, ACID CONDITIONER, urgent care, hospital, or skilled nursing...) When possible be specific @ -No Did you speak to anyone other than the patient for history (EMS, parent, family, police, friend...)? What history was obtained from this source @ -No Did you review nursing and triage notes (agree or disagree)? Why? @ -I reviewed and agree with nursing and triage notes Were old charts reviewed (outside hosp., previous admission, EMS record, old EKG, old radiological studies, urgent care reports/EKG's, skilled nursing records)? Report findings @ -No old charts were reviewed Differential Diagnosis (chest pain, altered mental status, abdominal pain women, abdominal pain men, vaginal bleeding, weakness, fever, dyspnea, syncope, headache, dizziness, GI bleed, back pain, seizure, CVA, palpatations, mental health, musculoskeletal)? @ -Differential Abdominal Pain Women: Appendicitis, Cholecystitis, diverticulosis, ischemic bowel, pancreatitis, hepatitis, UTI, gastroenteritis, AAA, incarcerated hernia, bowel obstruction, constipation, inflammatory bowel, hepatitis, peptic ulcer disease, splenic infarction, perforated viscus, vulvitis, ovarian torsion, PID, kidney stone, placenta abruption, this is not meant to be an all-inclusive list EKG interpreted by me (3pts min.). @ -None X-rays interpreted by me (1pt min.). @ -None done CT interpreted by me (1pt min.). @ -None done U/S interpreted by me (1pt. min.). @ -None done What testing was considered but not performed or refused? (CT, X-rays, U/S, labs)? Why? @ -None What meds were considered but not given or refused? Why? @ -None Did you discuss the management of the patient with other professionals (professionals i.e. , PA, ACID CONDITIONER, lab, RT, psych nurse, social service technician, optical model maker and tester, teacher, navy senior officer, piano case and bench assembler)? Give summary @ -No Was smoking cessation discussed for >3mins.? @ -No Was critical care preformed (if so, how long)? @ -No Were there social determinants of health that impacted care today? How? (Homelessness, low income, unemployed, alcoholism, drug addiction, transportation, low edu. Level, literacy, decrease access to med. care, long term, r ehab)? @ -No Was there de-escalation of care discussed even if they declined (Discuss DNR or withdrawal of care, Hospice)? DNR status @ -No What co-morbidities impacted this encounter? (DM, HTN, Smoking, COPD, CAD, Cancer, CVA, ARF, Chemo, Hep., AIDS, mental health diagnosis, sleep apnea, morbid obesity)? @ -Marijuana use Was patient admitted / discharged? Hospital course, mention meds given and r oute, prescriptions, significant lab abnormalities, going to OR and other pertinent info. @ -Discharge patient feels improved with IV fluids and antiemetics. We discussed minimal diet today, progress as tolerated patient was discharged with antiemetics with discussed marijuana use causing symptoms. Undiagnosed new problem with uncertain prognosis? @ -No Drug Therapy requiring intensive monitoring for toxicity (Heparin, Nitro, Insulin, Cardizem)? @ -No Were any procedures done? @ -No Diagnosis/symptom? @ -Nausea vomiting Acute, or Chronic, or Acute on Chronic? @ -Acute Uncomplicated (without systemic symptoms) or Complicated (systemic symptoms)? @ -Uncomplicated Side effects of treatment? @ -No Exacerbation, Progression, or Severe Exacerbation? @ -No Poses a threat to life or bodily function? How? (Chest pain, [place], [place], pneumonia, PE, COPD, DKA, ARF, appy, cholecystitis, CVA, Diverticulitis, Homicidal, Suicidal, threat to staff... and all critical care pts) @ -No - Lab Data Result diagrams: 04/02/24 14:00 04/02/24 14:00 Lab Results 04/02/24 04/02/24 Range/Units 14:00 14:00 WBC 12.6 H (3.8-10.6) k/uL RBC 4.76 (3.80-5.40) m/uL Hgb 14.9 (11.4-16.0) gm/dL Hct 45.1 (34.0-46.0) % MCV 94.9 (80.0-100.0) fL MCH 31.4 (25.0-35.0) pg MCHC 33.1 (31.0-37.0) g/dL RDW 11.9 (11.5-15.5) % Plt Count 305 (150-450) k/uL MPV 6.8 Neutrophils % 92 % Lymphocytes % 5 % Monocytes % 2 % Eosinophils % 0 % Basophils % 0 % Neutrophils # 11.5 H (1.3-7.7) k/uL Lymphocytes # 0.6 L (1.0-4.8) k/uL Monocytes # 0.3 (0-1.0) k/uL Eosinophils # 0.0 (0-0.7) k/uL Basophils # 0.0 (0-0.2) k/uL Sodium 141 (137-145) mmol/L Potassium 3.9 (3.5-5.1) mmol/L Chloride 105 (98-107) mmol/L Carbon Dioxide 26 (22-30) mmol/L Anion Gap 10 mmol/L BUN 10 (7-17) mg/dL Creatinine 0.64 (0.52-1.04) mg/dL Est GFR (CKD-EPI)AfAm >90 (>60 ml/min/1.73 sqM) Est GFR (CKD-EPI)NonAf >90 (>60 ml/min/1.73 sqM) Glucose 139 H (74-99) mg/dL Calcium 9.8 (8.4-10.2) mg/dL Total Bilirubin 1.1 (0.2-1.3) mg/dL AST 42 H (14-36) U/L ALT 26 (4-34) U/L Alkaline Phosphatase 76 (38-126) U/L Total Protein 8.3 H (6.3-8.2) g/dL Albumin 5.4 H (3.5-5.0) g/dL Disposition Clinical Impression: Nausea & vomiting Disposition: HOME SELF-CARE Condition: Stable Instructions (If sedation given, give patient instructions): Acute Nausea and Vomiting (ED) Additional Instructions: Please return to the Emergency Department if symptoms worsen or any other concerns. Prescriptions: Ondansetron Odt [Zofran Odt] 4 mg PO Q8HR PRN #10 tab PRN Reason: Nausea Is patient prescribed a controlled substance at d/c from ED?: No Referrals: None,Stated [Primary Care Provider] - 1-2 days Time of Disposition: 15:49
[2024-04-02 16:30] VITALS: BP 125/84; PULSE 79; RESP 16
== END 2024-04-02 16:30 | disposition home or self-care (01) ==
LOC: EC 13:10
DX: R11.2 Nausea with vomiting, unspecified (principal); F17.290 Nicotine dependence, other tobacco product, uncomplicated; Z88.0 Allergy status to penicillin; Z88.1 Allergy status to other antibiotic agents; Z88.2 Allergy status to sulfonamides
CPT/HCPCS: 36415; 80053; 85025; 99284; 96374; 96375 ×4; 96361 ×2; J1200; J2765; J3490; J1885; J1790

== ENCOUNTER 2024-04-04 13:06 | Emergency (ER) | payer BC ==
--- NOTE | 2024-04-04 13:22 | ED ---
General Adult HPI - General Chief complaint: Nausea/Vomiting/Diarrhea Stated complaint: Vomiting Time Seen by Provider: 04/04/24 13:15 Source: patient, RN notes reviewed, old records reviewed Mode of arrival: ambulatory Limitations: no limitations - History of Present Illness Initial comments: This is a 23-year-old female who presents to the emergency department stating that she was here the other day because she had drank too much and continue to vomit. Patient states she has endometriosis and she started her period today and now she can continues to vomit. Patient states she is unable to keep anything down. Patient denies any abdominal pain. Patient Nuys any marijuana use. Patient denies any back pain. Patient Nuys any fever chills. Patient denies any dysuria hematuria urinary frequency. Patient denies the possibility being even though she is sexually active. - Related Data Home Medications Medication Instructions Recorded Confirmed Dextroamphetamine/Amphetamine 20 mg PO BID@0800,1400 09/20/23 09/20/23 [Adderall] Previous Rx's Medication Instructions Recorded Ondansetron Odt [Zofran ODT] 4 mg PO Q8HR PRN #15 tab 09/19/23 Pantoprazole [Protonix] 40 mg PO BID #30 tab 09/20/23 Promethazine Suppository 25 mg RECTAL QID PRN #15 supp 09/21/23 [Phenergan] Acetaminophen 500 mg PO Q6H PRN #60 tab 12/07/23 Cephalexin [Keflex] 500 mg PO Q6HR 5 Days #20 cap 12/07/23 Ibuprofen [Motrin] 600 mg PO Q8HR PRN #30 tab 12/07/23 Ondansetron Odt [Zofran Odt] 4 mg PO Q8HR PRN #10 tab 12/07/23 Metoclopramide [Reglan] 10 mg PO Q6H PRN #30 tab 12/08/23 Ondansetron Odt [Zofran Odt] 4 mg PO Q8HR PRN #30 tab 12/08/23 Ondansetron Odt [Zofran Odt] 4 mg PO Q8HR PRN #10 tab 04/02/24 Allergies Allergy/AdvReac Type Severity Reaction Status Date / Time erythromycin base Allergy Rash/Hives Verified 04/04/24 13:16 Penicillins Allergy Rash/Hives Verified 04/04/24 13:16 sulfamethoxazole Allergy Rash/Hives/ Verified 04/04/24 13:16 [From Bactrim] Anaphylaxis trimethoprim [From Bactrim] Allergy Rash/Hives/ Verified 04/04/24 13:16 Anaphylaxis Review of Systems ROS Statement: Those systems with pertinent positive or pertinent negative responses have been documented in the HPI. ROS Other: All systems not noted in ROS Statement are negative. Past Medical History Past Medical History: No Reported History Additional Past Medical History / Comment(s): endomertriosis. benign breast tumors. benign brain tumor History of Any Multi-Drug Resistant Organisms: None Reported Additional Past Surgical History / Comment(s): Brain tumor, breast tumor x2, Endometriosism, EGD/Colonoscopy, Bilateral ear Tympanostomyx3 Past Anesthesia/Blood Transfusion Reactions: No Reported Reaction Past Psychological History: No Psychological Hx Reported Smoking Status: Vaper Past Alcohol Use History: Occasional Past Drug Use History: Marijuana - Past Family History Father Family Medical History: Hypertension General Exam - General Exam Comments Initial Comments: GENERAL: Patient is well-developed and well-nourished. Patient is nontoxic and well- hydrated and is in mild distress. ENT: Neck is soft and supple. No significant lymphadenopathy is noted. Oropharynx is clear. Moist mucous membranes. Neck has full range of motion without eliciting any pain. EYES: The sclera were anicteric and conjunctiva were pink and moist. Extraocular movements were intact and pupils were equal round and reactive to light. Eyelids were unremarkable. PULMONARY: Unlabored respirations. Good breath sounds bilaterally. No audible rales rhonchi or wheezing was noted. CARDIOVASCULAR: There is a regular rate and rhythm without any murmurs gallops or rubs. ABDOMEN: Soft and nontender with normal bowel sounds. SKIN: Skin is clear with no lesions or rashes and otherwise unremarkable. NEUROLOGIC: Patient is alert and oriented x3. Cranial nerves II through XII are grossly intact. Motor and sensory are also intact. Normal speech, volume and content. Symmetrical smile. MUSCULOSKELETAL: Normal extremities with adequate strength and full range of motion. LYMPHATICS: No significant lymphadenopathy is noted PSYCHIATRIC: Normal psychiatric evaluation. Limitations: no limitations Course Vital Signs 04/04/24 04/04/24 13:13 14:48 Temperature 97.5 F L Pulse Rate 98 75 Respiratory 22 18 Rate Blood Pressure 124/81 129/91 O2 Sat by Pulse 97 97 Oximetry Medical Decision Making - Medical Decision Making EKG is interpreted by myself. EKG shows a sinus rhythm at 90 bpm OR interval is 150 QRS is 97 QT interval 368 QTc is 416. Patient's EKG shows no ST segment ovation or depression. Was pt. sent in by a medical professional or institution (, [facility]AN[facility], GLOST PLACER, urgent care, hospital, or alf...) When possible be specific @ -No Did you speak to anyone other than the patient for history (EMS, parent, family, police, friend...)? What history was obtained from this source @ -No Did you review nursing and triage notes (agree or disagree)? Why? @ -I reviewed and agree with nursing and triage notes Were old charts reviewed (outside hosp., previous admission, EMS record, old EKG, old radiological studies, urgent care reports/EKG's, alf records)? Report findings @ -No old charts were reviewed Differential Diagnosis? @ -Gastritis, viral syndrome, gastroenteritis, cyclic vomiting, this is not an all-inclusive list EKG interpreted by me (3pts min.). @ -As above X-rays interpreted by me (1pt min.). @ -None done CT interpreted by me (1pt min.). @ -None done U/S interpreted by me (1pt. min.). @ -None done What testing was considered but not performed or refused? (CT, X-rays, U/S, labs)? Why? @ -None What meds were considered but not given or refused? Why? @ -None Did you discuss the management of the patient with other professionals (professionals i.e. STEPHANIA Lynne, GLOST PLACER, lab, RT, psych nurse, socially responsible investment adviser, jack spinner, teacher, chief media officer, case coordinator)? Give summary @ -No Was smoking cessation discussed for >3mins.? @ -No Was critical care preformed (if so, how long)? @ -No Were there social determinants of health that impacted care today? How? (Homelessness, low income, unemployed, alcoholism, drug addiction, transportation, low edu. Level, literacy, decrease access to med. care, assisted, re hab)? @ -No Was there de-escalation of care discussed even if they declined (Discuss DNR or withdrawal of care, Hospice)? DNR status @ -No What co-morbidities impacted this encounter? (DM, HTN, Smoking, COPD, CAD, Cancer, CVA, ARF, Chemo, Hep., AIDS, mental health diagnosis, sleep apnea, morbid obesity)? @ -None Was patient admitted / discharged? Hospital course, mention meds given and route, prescriptions, significant lab abnormalities, going to OR and other pertinent info. @ -Received Zofran and fluids in the emergency department and then she continued to vomit so she is given droperidol at which point she stopped vomiting and she is told to stop smoking marijuana. Undiagnosed new problem with uncertain prognosis? @ -No Drug Therapy requiring intensive monitoring for toxicity (Heparin, Nitro, Insulin, Cardizem)? @ -No Were any procedures done? @ -No Diagnosis/symptom? @ -Cyclic vomiting syndrome Acute, or Chronic, or Acute on Chronic? @ -Acute Uncomplicated (without systemic symptoms) or Complicated (systemic symptoms)? @ -Complicated Side effects of treatment? @ -No Exacerbation, Progression, or Severe Exacerbation? @ -No Poses a threat to life or bodily function? How? (Chest pain, [place], [place], pneumonia, PE, COPD, DKA, ARF, appy, cholecystitis, CVA, Diverticulitis, Homicidal, Mely cidal, threat to staff... and all critical care pts) @ -No Diagnosis/symptom? @ -Marijuana abuse Acute, or Chronic, or Acute on Chronic? @ -Acute Uncomplicated (without systemic symptoms) or Complicated (systemic symptoms)? @ -Complicated Side effects of treatment? @ -None Exacerbation, Progression, or Severe Exacerbation] @ -No Poses a threat to life or bodily function? @ -No - Lab Data Result diagrams: 04/04/24 13:23 04/04/24 13:23 Lab Results 04/04/24 04/04/24 04/04/24 Range/Units 13:23 13:23 13:44 WBC 13.3 H (3.8-10.6) k/uL RBC 5.03 (3.80-5.40) m/uL Hgb 15.7 (11.4-16.0) gm/dL Hct 47.6 H (34.0-46.0) % MCV 94.7 (80.0-100.0) fL MCH 31.2 (25.0-35.0) pg MCHC 32.9 (31.0-37.0) g/dL RDW 12.0 (11.5-15.5) % Plt Count 351 (150-450) k/uL MPV 6.8 Neutrophils % 82 % Lymphocytes % 12 % Monocytes % 3 % Eosinophils % 0 % Basophils % 0 % Neutrophils # 10.9 H (1.3-7.7) k/uL Lymphocytes # 1.6 (1.0-4.8) k/uL Monocytes # 0.5 (0-1.0) k/uL Eosinophils # 0.0 (0-0.7) k/uL Basophils # 0.0 (0-0.2) k/uL Sodium 140 (137-145) mmol/L Potassium 3.3 L (3.5-5.1) mmol/L Chloride 97 L (98-107) mmol/L Carbon Dioxide 29 (22-30) mmol/L Anion Gap 14 mmol/L BUN 11 (7-17) mg/dL Creatinine 0.68 (0.52-1.04) mg/dL Est GFR (CKD-EPI)AfAm >90 (>60 ml/min/1.73 sqM) Est GFR (CKD-EPI)NonAf >90 (>60 ml/min/1.73 sqM) Glucose 130 H (74-99) mg/dL Calcium 9.9 (8.4-10.2) mg/dL Total Bilirubin 1.7 H (0.2-1.3) mg/dL AST 58 H (14-36) U/L ALT 42 H (4-34) U/L Alkaline Phosphatase 67 (38-126) U/L Total Protein 8.6 H (6.3-8.2) g/dL Albumin 5.4 H (3.5-5.0) g/dL Urine HCG, Qual Not Detected (Not Detectd) Urine Opiates Screen (NotDetected) Ur Oxycodone Screen (NotDetected) Urine Methadone Screen (NotDetected) Ur Barbiturates Screen (NotDetected) U Tricyclic Antidepress (NotDetected) Ur Phencyclidine Scrn (NotDetected) Ur Amphetamines Screen (NotDetected) U Methamphetamines Scrn (NotDetected) U Benzodiazepines Scrn (NotDetected) Urine Cocaine Screen (NotDetected) U Marijuana (THC) Screen (NotDetected) 04/04/24 Range/Units 14:32 WBC (3.8-10.6) k/uL RBC (3.80-5.40) m/uL Hgb (11.4-16.0) gm/dL Hct (34.0-46.0) % MCV (80.0-100.0) fL MCH (25.0-35.0) pg MCHC (31.0-37.0) g/dL RDW (11.5-15.5) % Plt Count (150-450) k/uL MPV Neutrophils % % Lymphocytes % % Monocytes % % Eosinophils % % Basophils % % Neutrophils # (1.3-7.7) k/uL Lymphocytes # (1.0-4.8) k/uL Monocytes # (0-1.0) k/uL Eosinophils # (0-0.7) k/uL Basophils # (0-0.2) k/uL Sodium (137-145) mmol/L Potassium (3.5-5.1) mmol/L Chloride (98-107) mmol/L Carbon Dioxide (22-30) mmol/L Anion Gap mmol/L BUN (7-17) mg/dL Creatinine (0.52-1.04) mg/dL Est GFR (CKD-EPI)AfAm (>60 ml/min/1.73 sqM) Est GFR (CKD-EPI)NonAf (>60 ml/min/1.73 sqM) Glucose (74-99) mg/dL Calcium (8.4-10.2) mg/dL Total Bilirubin (0.2-1.3) mg/dL AST (14-36) U/L ALT (4-34) U/L Alkaline Phosphatase (38-126) U/L Total Protein (6.3-8.2) g/dL Albumin (3.5-5.0) g/dL Urine HCG, Qual (Not Detectd) Urine Opiates Screen Not Detected (NotDetected) Ur Oxycodone Screen Not Detected (NotDetected) Urine Methadone Screen Not Detected (NotDetected) Ur Barbiturates Screen Not Detected (NotDetected) U Tricyclic Antidepress Not Detected (NotDetected) Ur Phencyclidine Scrn Not Detected (NotDetected) Ur Amphetamines Screen Not Detected (NotDetected) U Methamphetamines Scrn Not Detected (NotDetected) U Benzodiazepines Scrn Not Detected (NotDetected) Urine Cocaine Screen Not Detected (NotDetected) U Marijuana (THC) Screen Detected H (NotDetected) Disposition Clinical Impression: Marijuana abuse, Cyclic vomiting syndrome Disposition: HOME SELF-CARE Instructions (If sedation given, give patient instructions): Cyclic Vomiting Syndrome (ED) Is patient prescribed a controlled substance at d/c from ED?: No Referrals: None,Stated [Primary Care Provider] - 1-2 days Time of Disposition: 16:18
[2024-04-04 13:35] LABS: Basophils % (A) 0 %; Eosinophils % (A) 0 %; HCT 47.6 % (34.0-46.0); HGB 15.7 gm/dL (11.4-16.0); Lymphocytes # (A) 1.6 k/uL (1.0-4.8); Lymphocytes % (A) 12 %; MCH 31.2 pg (25.0-35.0); MCHC 32.9 g/dL (31.0-37.0); MCV 94.7 fL (80.0-100.0); Mean Platelet Volume 6.8; Monocytes # (A) 0.5 k/uL (0-1.0); Monocytes % (A) 3 %; Neutrophils # (A) 10.9 k/uL (1.3-7.7); Neutrophils % (A) 82 %; Platelet Count 351 k/uL (150-450); RBC 5.03 m/uL (3.80-5.40); WBC 13.3 k/uL (3.8-10.6)
[2024-04-04] MEDS: SODIUM CHLORIDE 0.9% 1,000 ML IV ONE (13:42)
[2024-04-04] MEDS: ONDANSETRON 4 MG/2 ML VIAL IVP STA (13:43)
[2024-04-04 13:47] LABS: ALT 42 U/L (4-34); AST 58 U/L (14-36); African American GFR (CKD) >90 (>60 ml/min/1.73 sqM); Albumin 5.4 g/dL (3.5-5.0); Alkaline Phosphatase 67 U/L (38-126); Anion Gap 14 mmol/L; Blood Urea Nitrogen 11 mg/dL (7-17); Calcium 9.9 mg/dL (8.4-10.2); Carbon Dioxide 29 mmol/L (22-30); Chloride 97 mmol/L (98-107); Glucose 130 mg/dL (74-99); Non-African American GFR(CKD) >90 (>60 ml/min/1.73 sqM); Potassium 3.3 mmol/L (3.5-5.1); Sodium 140 mmol/L (137-145); Total Bilirubin 1.7 mg/dL (0.2-1.3); Total Protein 8.6 g/dL (6.3-8.2)
[2024-04-04 14:49] VITALS: RESP 18
[2024-04-04] MEDS: KETOROLAC 15 MG/ML 1 ML VIAL IVP STA (14:49)
[2024-04-04 15:16] LABS: Amphetamine Screen,Urine Not Detected (NotDetected); Barbiturate Screen,Urine Not Detected (NotDetected); Benzodiazepines Screen,Urine Not Detected (NotDetected); Cocaine Screen,Urine Not Detected (NotDetected); Methadone Screen, Urine Not Detected (NotDetected); Opiate Screen,Urine Not Detected (NotDetected); Oxycodone Screen, Urine Not Detected (NotDetected); Phencyclidine Screen,Urine Not Detected (NotDetected); Tricyclic Antidepressant,Urine Not Detected (NotDetected); Urn Cannabinoid Scrn Detected (NotDetected)
[2024-04-04] MEDS: droPERidol 5 MG/2 ML VIAL IVP ONE (16:01)
[2024-04-04] MEDS: ONDANSETRON 4 MG ODT STARTER PACK 2 TAB BTL PO STA (16:51)
[2024-04-04 16:55] VITALS: BP 108/51; PULSE 100; TEMP 98.7
== END 2024-04-04 16:57 | disposition home or self-care (01) ==
LOC: EC 13:06
CPT/HCPCS: 36415; 80053; 80306; 81025; 85025; 93005; 96361; 96374; 96375; 99284

== ENCOUNTER 2024-04-05 05:41 | Emergency (ER) | payer BC ==
[2024-04-05] MEDS: SODIUM CHLORIDE 0.9% 2,000 ML IV STA (06:24)
[2024-04-05 06:25] LABS: Basophils % (A) 0 %; Eosinophils % (A) 0 %; HCT 47.6 % (34.0-46.0); Lymphocytes % (A) 17 %; MCH 31.9 pg (25.0-35.0); MCHC 33.6 g/dL (31.0-37.0); MCV 94.9 fL (80.0-100.0); Mean Platelet Volume 6.8; Monocytes # (A) 0.6 k/uL (0-1.0); Monocytes % (A) 5 %; Neutrophils # (A) 8.8 k/uL (1.3-7.7); Neutrophils % (A) 75 %; Platelet Count 345 k/uL (150-450); RBC 5.02 m/uL (3.80-5.40); RDW 11.9 % (11.5-15.5); WBC 11.7 k/uL (3.8-10.6)
[2024-04-05] MEDS: KETOROLAC 15 MG/ML 1 ML VIAL IVP STA (06:31)
[2024-04-05] MEDS: droPERidol 5 MG/2 ML VIAL IVP ONE (06:31)
[2024-04-05] MEDS: PANTOPRAZOLE 40 MG/10 ML VIAL IVP STA (06:32)
[2024-04-05] MEDS: diphenhydrAMINE 50 MG/ML 1 ML VIAL IVP STA (06:33)
[2024-04-05 06:36] LABS: ALT 39 U/L (4-34); AST 51 U/L (14-36); African American GFR (CKD) >90 (>60 ml/min/1.73 sqM); Albumin 5.1 g/dL (3.5-5.0); Alkaline Phosphatase 60 U/L (38-126); Anion Gap 9 mmol/L; Blood Urea Nitrogen 10 mg/dL (7-17); Calcium 9.7 mg/dL (8.4-10.2); Carbon Dioxide 36 mmol/L (22-30); Chloride 94 mmol/L (98-107); Glucose 121 mg/dL (74-99); Non-African American GFR(CKD) >90 (>60 ml/min/1.73 sqM); Potassium 3.2 mmol/L (3.5-5.1); Sodium 139 mmol/L (137-145); Total Protein 8.2 g/dL (6.3-8.2)
--- NOTE | 2024-04-05 06:45 | ED ---
General Adult HPI - General Chief complaint: Nausea/Vomiting/Diarrhea Stated complaint: NV abd pain Time Seen by Provider: 04/05/24 06:01 Source: patient, RN notes reviewed Mode of arrival: ambulatory Limitations: no limitations - History of Present Illness Initial comments: 23-year-old female presents emergency department chief plaint of nausea vomiting . This is her third visit for similar complaint. Patient states she goes home and tries to drink a large amount of water and continues to vomit. She does use marijuana. She initially presented to [facility] family she states this started from drinking too much alcohol. Patient states that she has diffuse abdominal discomfort no localized pain no chest pain no fevers or chills. - Related Data Home Medications Medication Instructions Recorded Confirmed Dextroamphetamine/Amphetamine 20 mg PO BID@0800,1400 09/20/23 09/20/23 [Adderall] Previous Rx's Medication Instructions Recorded Ondansetron Odt [Zofran ODT] 4 mg PO Q8HR PRN #15 tab 09/19/23 Pantoprazole [Protonix] 40 mg PO BID #30 tab 09/20/23 Promethazine Suppository 25 mg RECTAL QID PRN #15 supp 09/21/23 [Phenergan] Acetaminophen 500 mg PO Q6H PRN #60 tab 12/07/23 Cephalexin [Keflex] 500 mg PO Q6HR 5 Days #20 cap 12/07/23 Ibuprofen [Motrin] 600 mg PO Q8HR PRN #30 tab 12/07/23 Ondansetron Odt [Zofran Odt] 4 mg PO Q8HR PRN #10 tab 12/07/23 Metoclopramide [Reglan] 10 mg PO Q6H PRN #30 tab 12/08/23 Ondansetron Odt [Zofran Odt] 4 mg PO Q8HR PRN #30 tab 12/08/23 Ondansetron Odt [Zofran Odt] 4 mg PO Q8HR PRN #10 tab 04/02/24 Prochlorperazine [Compazine] 10 mg PO Q6H #15 tab 04/05/24 Allergies Allergy/AdvReac Type Severity Reaction Status Date / Time erythromycin base Allergy Rash/Hives Verified 04/05/24 05:45 Penicillins Allergy Rash/Hives Verified 04/05/24 05:45 sulfamethoxazole Allergy Rash/Hives/ Verified 04/05/24 05:45 [From Bactrim] Anaphylaxis trimethoprim [From Bactrim] Allergy Rash/Hives/ Verified 04/05/24 05:45 Anaphylaxis Review of Systems ROS Statement: Those systems with pertinent positive or pertinent negative responses have been documented in the HPI. ROS Other: All systems not noted in ROS Statement are negative. Past Medical History Past Medical History: No Reported History Additional Past Medical History / Comment(s): endomertriosis. benign breast tumors. benign brain tumor History of Any Multi-Drug Resistant Organisms: None Reported Additional Past Surgical History / Comment(s): Brain tumor, breast tumor x2, Endometriosism, EGD/Colonoscopy, Bilateral ear Tympanostomyx3 Past Anesthesia/Blood Transfusion Reactions: No Reported Reaction Past Psychological History: No Psychological Hx Reported Smoking Status: Vaper Past Alcohol Use History: Occasional Past Drug Use History: Marijuana - Past Family History Father Family Medical History: Hypertension General Exam Limitations: no limitations General appearance: alert, in no apparent distress Head exam: Present: atraumatic, normocephalic, normal inspection Eye exam: Present: normal appearance, PERRL, EOMI. Absent: scleral icterus, conjunctival injection, periorbital swelling ENT exam: Present: normal exam, normal oropharynx, mucous membranes moist Neck exam: Present: normal inspection, full ROM. Absent: tenderness, meningismus, lymphadenopathy Respiratory exam: Present: normal lung sounds bilaterally. Absent: respiratory distress, wheezes, rales, rhonchi, stridor Cardiovascular Exam: Present: regular rate, normal rhythm, normal heart sounds. Absent: systolic murmur, diastolic murmur, rubs, gallop, clicks GI/Abdominal exam: Present: soft, tenderness, normal bowel sounds. Absent: distended, guarding, rebound, rigid Back exam: Absent: CVA tenderness (R), CVA tenderness (L) Neurological exam: Present: alert, oriented X3 Psychiatric exam: Present: normal affect, normal mood Course Vital Signs 04/05/24 05:44 Temperature 98.1 F Pulse Rate 91 Respiratory 18 Rate Blood Pressure 132/100 O2 Sat by Pulse 95 Oximetry Medical Decision Making - Medical Decision Making Was pt. sent in by a medical professional or institution (, PA, PERIODICALS CLERK, urgent care, hospital, or senior living...) When possible be specific @ -No Did you speak to anyone other than the patient for history (EMS, parent, family, police, friend...)? What history was obtained from this source @ -No Did you review nursing and triage notes (agree or disagree)? Why? @ -I reviewed and agree with nursing and triage notes Were old charts reviewed (outside hosp., previous admission, EMS record, old EKG, old radiological studies, urgent care reports/EKG's, senior living records)? Report findings @ -Reviewed CBC and CMP from yesterday Differential Diagnosis (chest pain, altered mental status, abdominal pain women, abdominal pain men, vaginal bleeding, weakness, fever, dyspnea, syncope, headache, dizziness, GI bleed, back pain, seizure, CVA, palpatations, mental health, musculoskeletal)? @ -Differential Abdominal Pain Women: Appendicitis, Cholecystitis, diverticulosis, ischemic bowel, pancreatitis, hepatitis, UTI, gastroenteritis, AAA, incarcerated hernia, bowel obstruction, constipation, inflammatory bowel, hepatitis, peptic ulcer disease, splenic infarction, perforated viscus, vulvitis, ovarian torsion, PID, kidney stone, placenta abruption, this is not meant to be an all-inclusive list EKG interpreted by me (3pts min.). @ -None X-rays interpreted by me (1pt min.). @ -None done CT interpreted by me (1pt min.). @ -None done U/S interpreted by me (1pt. min.). @ -None done What testing was considered but not performed or refused? (CT, X-rays, U/S, labs)? Why? @ -Consider CT but patient does not have any localized abdominal pain but symptoms are improved What meds were considered but not given or refused? Why? @ -None Did you discuss the management of the patient with other professionals (phani chavez i.e. , PA, PERIODICALS CLERK, lab, RT, psych nurse, clinical social work therapist, accounting file clerk, teacher, chief talent officer, case planner)? Give summary @ -No Was smoking cessation discussed for >3mins.? @ -No Was critical care preformed (if so, how long)? @ -No Were there social determinants of health that impacted care today? How? (Homelessness, low income, unemployed, alcoholism, drug addiction, transportation, low edu. Level, literacy, decrease access to med. care, residential, rehab)? @ -No Was there de-escalation of care discussed even if they declined (Discuss DNR or withdrawal of care, Hospice)? DNR status @ -No What co-morbidities impacted this encounter? (DM, HTN, Smoking, COPD, CAD, Cancer, CVA, ARF, Chemo, Hep., AIDS, mental health diagnosis, sleep apnea, morbid obesity)? @ -Marijuana use Was patient admitted / discharged? Hospital course, mention meds given and route, prescriptions, significant lab abnormalities, going to OR and other pertinent info. @ -Discharged patient has hyperemesis from cannabis induced patient was hydrated symptoms have resolved she is advised to refrain from large amounts of fluid i ntake at 1 time. She is to gradually increase fluid intake and follow-up with her PCP she is advised to discontinue marijuana use Undiagnosed new problem with uncertain prognosis? @ -No Drug Therapy requiring intensive monitoring for toxicity (Heparin, Nitro, Insulin, Cardizem)? @ -No Were any procedures done? @ -No Diagnosis/symptom? @ -Cannabis induced hyperemesis Acute, or Chronic, or Acute on Chronic? @ -Acute Uncomplicated (without systemic symptoms) or Complicated (systemic symptoms)? @ -Complicated Side effects of treatment? @ -No Exacerbation, Progression, or Severe Exacerbation? @ -No Poses a threat to life or bodily function? How? (Chest pain, [place], [place], pneumonia, PE, COPD, DKA, ARF, appy, cholecystitis, CVA, Diverticulitis, Homicidal, Suicidal, threat to staff... and all critical care pts) @ -No - Lab Data Result diagrams: 04/05/24 06:17 04/05/24 06:17 Lab Results 04/05/24 04/05/24 Range/Units 06:17 06:17 WBC 11.7 H (3.8-10.6) k/uL RBC 5.02 (3.80-5.40) m/uL Hgb 16.0 (11.4-16.0) gm/dL Hct 47.6 H (34.0-46.0) % MCV 94.9 (80.0-100.0) fL MCH 31.9 (25.0-35.0) pg MCHC 33.6 (31.0-37.0) g/dL RDW 11.9 (11.5-15.5) % Plt Count 345 (150-450) k/uL MPV 6.8 Neutrophils % 75 % Lymphocytes % 17 % Monocytes % 5 % Eosinophils % 0 % Basophils % 0 % Neutrophils # 8.8 H (1.3-7.7) k/uL Lymphocytes # 2.0 (1.0-4.8) k/uL Monocytes # 0.6 (0-1.0) k/uL Eosinophils # 0.0 (0-0.7) k/uL Basophils # 0.0 (0-0.2) k/uL Sodium 139 (137-145) mmol/L Potassium 3.2 L (3.5-5.1) mmol/L Chloride 94 L (98-107) mmol/L Carbon Dioxide 36 H (22-30) mmol/L Anion Gap 9 mmol/L BUN 10 (7-17) mg/dL Creatinine 0.74 (0.52-1.04) mg/dL Est GFR (CKD-EPI)AfAm >90 (>60 ml/min/1.73 sqM) Est GFR (CKD-EPI)NonAf >90 (>60 ml/min/1.73 sqM) Glucose 121 H (74-99) mg/dL Calcium 9.7 (8.4-10.2) mg/dL Total Bilirubin 2.0 H (0.2-1.3) mg/dL AST 51 H (14-36) U/L ALT 39 H (4-34) U/L Alkaline Phosphatase 60 (38-126) U/L Total Protein 8.2 (6.3-8.2) g/dL Albumin 5.1 H (3.5-5.0) g/dL Disposition Clinical Impression: Cannabis hyperemesis syndrome concurrent with and due to cannabis abuse Disposition: HOME SELF-CARE Condition: Stable Instructions (If sedation given, give patient instructions): Acute Nausea and Vomiting (ED) Additional Instructions: Please return to the Emergency Department if symptoms worsen or any other concerns. Prescriptions: Prochlorperazine [Compazine] 10 mg PO Q6H #15 tab Is patient prescribed a controlled substance at d/c from ED?: No Referrals: None,Stated [Primary Care Provider] - 1-2 days Time of Disposition: 08:04
[2024-04-05 08:10] VITALS: RESP 16
[2024-04-05 08:32] VITALS: BP 112/77; PULSE 94; TEMP 98
== END 2024-04-05 08:32 | disposition home or self-care (01) ==
LOC: EC 05:41
DX: F12.10 Cannabis abuse, uncomplicated (principal); R11.10 Vomiting, unspecified; F17.290 Nicotine dependence, other tobacco product, uncomplicated; Z88.0 Allergy status to penicillin; Z88.1 Allergy status to other antibiotic agents; Z88.2 Allergy status to sulfonamides
CPT/HCPCS: 36415; 80053; 85025; 99284; 96374; 96375 ×3; 96361 ×2; J1200; J1885; J1790; J2470

== ENCOUNTER 2024-08-06 14:36 | Inpatient (IN) | payer BC, OTHER ==
--- NOTE | 2024-08-06 15:10 | ED ---
General Adult HPI - General Chief complaint: Abdominal Pain Stated complaint: Right side pain Time Seen by Provider: 08/06/24 14:45 Source: patient, RN notes reviewed Mode of arrival: ambulatory Limitations: no limitations - History of Present Illness Initial comments: 23-year-old female presents to the emergency department for evaluation of right-sided abdominal pain. Patient reports that this started on Wednesday. She notes that the pain is in her right lower abdomen and radiates to her back. She denies fever, chills. Denies changes in her urinary bowel habits. She admits to nausea and vomiting. She states that she had significant vomiting yesterday and feels like her potassium is low. She states that she has had low potassium in the past. - Related Data Home Medications Medication Instructions Recorded Confirmed Dextroamphetamine/Amphetamine 20 mg PO BID@0800,1400 09/20/23 09/20/23 [Adderall] Previous Rx's Medication Instructions Recorded Ondansetron Odt [Zofran ODT] 4 mg PO Q8HR PRN #15 tab 09/19/23 Pantoprazole [Protonix] 40 mg PO BID #30 tab 09/20/23 Promethazine Suppository 25 mg RECTAL QID PRN #15 supp 09/21/23 [Phenergan] Acetaminophen 500 mg PO Q6H PRN #60 tab 12/07/23 Cephalexin [Keflex] 500 mg PO Q6HR 5 Days #20 cap 12/07/23 Ibuprofen [Motrin] 600 mg PO Q8HR PRN #30 tab 12/07/23 Ondansetron Odt [Zofran Odt] 4 mg PO Q8HR PRN #10 tab 12/07/23 Metoclopramide [Reglan] 10 mg PO Q6H PRN #30 tab 12/08/23 Ondansetron Odt [Zofran Odt] 4 mg PO Q8HR PRN #30 tab 12/08/23 Ondansetron Odt [Zofran Odt] 4 mg PO Q8HR PRN #10 tab 04/02/24 Prochlorperazine [Compazine] 10 mg PO Q6H #15 tab 04/05/24 Allergies Allergy/AdvReac Type Severity Reaction Status Date / Time erythromycin base Allergy Rash/Hives Verified 08/06/24 14:42 Penicillins Allergy Rash/Hives Verified 08/06/24 14:42 sulfamethoxazole Allergy Rash/Hives/ Verified 08/06/24 14:42 [From Bactrim] Anaphylaxis trimethoprim [From Bactrim] Allergy Rash/Hives/ Verified 08/06/24 14:42 Anaphylaxis Review of Systems ROS Statement: Those systems with pertinent positive or pertinent negative responses have been documented in the HPI. ROS Other: All systems not noted in ROS Statement are negative. Past Medical History Past Medical History: No Reported History Additional Past Medical History / Comment(s): endomertriosis. benign breast tumors. benign brain tumor History of Any Multi-Drug Resistant Organisms: None Reported Additional Past Surgical History / Comment(s): Brain tumor, breast tumor x2, Endometriosism, EGD/Colonoscopy, Bilateral ear Tympanostomyx3 Past Anesthesia/Blood Transfusion Reactions: No Reported Reaction Past Psychological History: No Psychological Hx Reported Smoking Status: Vaper Past Alcohol Use History: Occasional Past Drug Use History: Marijuana - Past Family History Father Family Medical History: Hypertension General Exam Limitations: no limitations General appearance: alert, in no apparent distress Head exam: Present: atraumatic, normocephalic, normal inspection Eye exam: Present: normal appearance, PERRL, EOMI. Absent: scleral icterus, conjunctival injection, periorbital swelling ENT exam: Present: mucous membranes dry Neck exam: Present: normal inspection. Absent: tenderness, meningismus, lymphadenopathy Respiratory exam: Present: normal lung sounds bilaterally. Absent: respiratory distress, wheezes, rales, rhonchi, stridor Cardiovascular Exam: Present: regular rate, normal rhythm, normal heart sounds. Absent: systolic murmur, diastolic murmur, rubs, gallop, clicks GI/Abdominal exam: Present: soft, tenderness (right mid abdomen and right flank), normal bowel sounds. Absent: distended, guarding, rebound, rigid Extremities exam: Present: normal inspection, full ROM, normal capillary refill. Absent: tenderness, pedal edema, joint swelling, calf tenderness Neurological exam: Present: alert, oriented X3 Psychiatric exam: Present: normal affect, normal mood Skin exam: Present: warm, dry, intact, normal color. Absent: rash Course Vital Signs 08/06/24 08/06/24 08/06/24 14:37 16:00 17:51 Temperature 97.8 F 98.3 F Pulse Rate 98 76 Respiratory 16 17 Rate Blood Pressure 104/78 115/77 O2 Sat by Pulse 98 98 Oximetry 08/06/24 08/06/24 18:17 20:31 Temperature Pulse Rate 92 85 Respiratory 18 18 Rate Blood Pressure 112/79 107/69 O2 Sat by Pulse 100 95 Oximetry Medical Decision Making - Medical Decision Making Was pt. sent in by a medical professional or institution (, PA, LIVING MANAGER, urgent care, hospital, or fci...) When possible be specific @ -No Did you speak to anyone other than the patient for history (EMS, parent, family, police, friend...)? What history was obtained from this source @ -No Did you review nursing and triage notes (agree or disagree)? Why? @ -I reviewed and agree with nursing and triage notes Were old charts reviewed (outside hosp., previous admission, EMS record, old EKG, old radiological studies, urgent care reports/EKG's, fci records)? Report findings @ -No old charts were reviewed Differential Diagnosis (chest pain, altered mental status, abdominal pain women, abdominal pain men, vaginal bleeding, weakness, fever, dyspnea, syncope, headac he, dizziness, GI bleed, back pain, seizure, CVA, palpatations, mental health, musculoskeletal)? @ -Differential Abdominal Pain Women: Appendicitis, Cholecystitis, diverticulosis, ischemic bowel, pancreatitis, hepatitis, UTI, gastroenteritis, AAA, incarcerated hernia, bowel obstruction, constipation, inflammatory bowel, hepatitis, peptic ulcer disease, splenic infarction, perforated viscus, vulvitis, ovarian torsion, PID, kidney stone, placenta abruption, this is not meant to be an all-inclusive list EKG interpreted by me (3pts min.). @ -EKG at 1500 show sinus rhythm rate 65, DE 126, QRS 102, QTQTc 806201 X-rays interpreted by me (1pt min.). @ -None done CT interpreted by me (1pt min.). @ -CT abdomen pelvis shows no evidence of acute process U/S interpreted by me (1pt. min.). @ -None done What testing was considered but not performed or refused? (CT, X-rays, U/S, labs)? Why? @ -None What meds were considered but not given or refused? Why? @ -None Did you discuss the management of the patient with other professionals (professionals i.e. , PA, LIVING MANAGER, lab, RT, psych nurse, rn social services, division controller, teacher, public records officer, oil field caser)? Give summary @ -Case discussed with Marianne Montano with [facility] who is accepting of the admission Was smoking cessation discussed for >3mins.? @ -No Was critical care preformed (if so, how long)? @ -No Were there social determinants of health that impacted care today? How? (Homelessness, low income, unemployed, alcoholism, drug addiction, t ransportation, low edu. Level, literacy, decrease access to med. care, custodial, rehab)? @ -No Was there de-escalation of care discussed even if they declined (Discuss DNR or withdrawal of care, Hospice)? DNR status @ -No What co-morbidities impacted this encounter? (DM, HTN, Smoking, COPD, CAD, Cance r, CVA, ARF, Chemo, Hep., AIDS, mental health diagnosis, sleep apnea, morbid obesity)? @ -None Was patient admitted / discharged? Hospital course, mention meds given and route, prescriptions, significant lab abnormalities, going to OR and other pertinent info. @ -Admitted.Patient presented emergency department for evaluation of abdominal pain nausea and vomiting. Laboratory studies obtained revealing leukocytosis at 13.4 likely reactive to the vomiting. Hemoglobin 14.9; patient has hypokalemia 3.0, hypochloremia 83. UA shows no evidence of infectious process, 2+ protein, 2+ ketones. Patient provided IV hydration in the ED along with antiemetics. Patient r attempted to have some ice chips and continued to have vomiting. Patient will be admitted for observation for intractable nausea and vomiting. Case discussed with Marianne Montano who is accepting of the admission. Case discussed with Dr. Moya Undiagnosed new problem with uncertain prognosis? @ -No Drug Therapy requiring intensive monitoring for toxicity (Heparin, Nitro, Insulin, Cardizem)? @ -No Were any procedures done? @ -No Diagnosis/symptom? @ -Intractable nausea and vomiting Acute, or Chronic, or Acute on Chronic? @ -acute Uncomplicated (without systemic symptoms) or Complicated (systemic symptoms)? @ -uncomplicated Side effects of treatment? @ -No Exacerbation, Progression, or Severe Exacerbation? @ -No Poses a threat to life or bodily function? How? (Chest pain, [place], [place], pneumonia, PE, COPD, DKA, ARF, appy, cholecystitis, CVA, Diverticulitis, Homicidal, Suicidal, threat to staff... and all critical care pts) @ -No - Lab Data Result diagrams: 08/06/24 15:33 08/06/24 15:33 Lab Results 08/06/24 08/06/24 08/06/24 Range/Units 15:33 15:33 16:55 WBC 13.4 H (3.8-10.6) k/uL RBC 4.77 (3.80-5.40) m/uL Hgb 14.9 (11.4-16.0) gm/dL Hct 43.9 (34.0-46.0) % MCV 91.9 (80.0-100.0) fL MCH 31.3 (25.0-35.0) pg MCHC 34.1 (31.0-37.0) g/dL RDW 11.8 (11.5-15.5) % Plt Count 266 (150-450) k/uL MPV 7.1 Neutrophils % 83 % Lymphocytes % 10 % Monocytes % 5 % Eosinophils % 0 % Basophils % 0 % Neutrophils # 11.1 H (1.3-7.7) k/uL Lymphocytes # 1.3 (1.0-4.8) k/uL Monocytes # 0.7 (0-1.0) k/uL Eosinophils # 0.0 (0-0.7) k/uL Basophils # 0.0 (0-0.2) k/uL Sodium 137 (137-145) mmol/L Potassium 3.0 L (3.5-5.1) mmol/L Chloride 83 L (98-107) mmol/L Carbon Dioxide 39 H (22-30) mmol/L Anion Gap 15 mmol/L BUN 16 (7-17) mg/dL Creatinine 0.89 (0.52-1.04) mg/dL Est GFR (CKD-EPI)AfAm >90 (>60 ml/min/1.73 sqM) Est GFR (CKD-EPI)NonAf >90 (>60 ml/min/1.73 sqM) Glucose 96 (74-99) mg/dL Calcium 10.1 (8.4-10.2) mg/dL Total Bilirubin 1.4 H (0.2-1.3) mg/dL AST 45 H (14-36) U/L ALT 26 (4-34) U/L Alkaline Phosphatase 77 (38-126) U/L Total Protein 8.6 H (6.3-8.2) g/dL Albumin 5.4 H (3.5-5.0) g/dL Amylase 82 (30-110) U/L Lipase 63 (23-300) U/L Urine Color Light Yellow Urine Appearance Cloudy H (Clear) Urine pH 8.0 (5.0-8.0) Ur Specific [place] 1.019 (1.001-1.035) Urine Protein 2+ H (Negative) Urine Glucose (UA) Negative (Negative) Urine Ketones 2+ H (Negative) Urine Blood Negative (Negative) Urine Nitrite Negative (Negative) Urine Bilirubin Negative (Negative) Urine Urobilinogen <2.0 (<2.0) mg/dL Ur Leukocyte Esterase Negative (Negative) Urine RBC <1 (0-5) /hpf Urine WBC 1 (0-5) /hpf Ur Squamous Epith Cells 6 H (0-4) /hpf Urine Bacteria Rare H (None) /hpf Urine Mucus Rare H (None) /hpf Urine HCG, Qual (Not Detectd) 08/06/24 Range/Units 16:55 WBC (3.8-10.6) k/uL RBC (3.80-5.40) m/uL Hgb (11.4-16.0) gm/dL Hct (34.0-46.0) % MCV (80.0-100.0) fL MCH (25.0-35.0) pg MCHC (31.0-37.0) g/dL RDW (11.5-15.5) % Plt Count (150-450) k/uL MPV Neutrophils % % Lymphocytes % % Monocytes % % Eosinophils % % Basophils % % Neutrophils # (1.3-7.7) k/uL Lymphocytes # (1.0-4.8) k/uL Monocytes # (0-1.0) k/uL Eosinophils # (0-0.7) k/uL Basophils # (0-0.2) k/uL Sodium (137-145) mmol/L Potassium (3.5-5.1) mmol/L Chloride (98-107) mmol/L Carbon Dioxide (22-30) mmol/L Anion Gap mmol/L BUN (7-17) mg/dL Creatinine (0.52-1.04) mg/dL Est GFR (CKD-EPI)AfAm (>60 ml/min/1.73 sqM) Est GFR (CKD-EPI)NonAf (>60 ml/min/1.73 sqM) Glucose (74-99) mg/dL Calcium (8.4-10.2) mg/dL Total Bilirubin (0.2-1.3) mg/dL AST (14-36) U/L ALT (4-34) U/L Alkaline Phosphatase (38-126) U/L Total Protein (6.3-8.2) g/dL Albumin (3.5-5.0) g/dL Amylase (30-110) U/L Lipase (23-300) U/L Urine Color Urine Appearance (Clear) Urine pH (5.0-8.0) Ur Specific [place] (1.001-1.035) Urine Protein (Negative) Urine Glucose (UA) (Negative) Urine Ketones (Negative) Urine Blood (Negative) Urine Nitrite (Negative) Urine Bilirubin (Negative) Urine Urobilinogen (<2.0) mg/dL Ur Leukocyte Esterase (Negative) Urine RBC (0-5) /hpf Urine WBC (0-5) /hpf Ur Squamous Epith Cells (0-4) /hpf Urine Bacteria (None) /hpf Urine Mucus (None) /hpf Urine HCG, Qual Not Detected (Not Detectd) Disposition Clinical Impression: Abdominal pain, Intractable nausea and vomiting Disposition: ADMITTED IP TO THIS HOSP Condition: Stable Is patient prescribed a controlled substance at d/c from ED?: No
[2024-08-06 16:03] LABS: Basophils % (A) 0 %; Eosinophils % (A) 0 %; HCT 43.9 % (34.0-46.0); HGB 14.9 gm/dL (11.4-16.0); Lymphocytes # (A) 1.3 k/uL (1.0-4.8); Lymphocytes % (A) 10 %; MCH 31.3 pg (25.0-35.0); MCHC 34.1 g/dL (31.0-37.0); MCV 91.9 fL (80.0-100.0); Mean Platelet Volume 7.1; Monocytes # (A) 0.7 k/uL (0-1.0); Monocytes % (A) 5 %; Neutrophils # (A) 11.1 k/uL (1.3-7.7); Neutrophils % (A) 83 %; Platelet Count 266 k/uL (150-450); RBC 4.77 m/uL (3.80-5.40); RDW 11.8 % (11.5-15.5); WBC 13.4 k/uL (3.8-10.6)
[2024-08-06] MEDS: SODIUM CHLORIDE 0.9% 1,000 ML IV STA (16:10)
[2024-08-06] MEDS: ONDANSETRON 4 MG/2 ML VIAL IVP STA (16:12)
[2024-08-06] MEDS: KETOROLAC 15 MG/ML 1 ML VIAL IVP STA (16:14)
[2024-08-06 16:48] LABS: ALT 26 U/L (4-34); AST 45 U/L (14-36); African American GFR (CKD) >90 (>60 ml/min/1.73 sqM); Albumin 5.4 g/dL (3.5-5.0); Alkaline Phosphatase 77 U/L (38-126); Amylase 82 U/L (30-110); Anion Gap 15 mmol/L; Blood Urea Nitrogen 16 mg/dL (7-17); Calcium 10.1 mg/dL (8.4-10.2); Carbon Dioxide 39 mmol/L (22-30); Chloride 83 mmol/L (98-107); Glucose 96 mg/dL (74-99); Lipase 63 U/L (23-300); Non-African American GFR(CKD) >90 (>60 ml/min/1.73 sqM); Sodium 137 mmol/L (137-145); Total Bilirubin 1.4 mg/dL (0.2-1.3); Total Protein 8.6 g/dL (6.3-8.2)
[2024-08-06 17:23] LABS: Appearance,Urine Cloudy (Clear); Bacteria,Urine Rare /hpf; Bilirubin,Urine Negative (Negative); Blood,Urine Negative (Negative); Color,Urine Light Yellow; Glucose,Urine (UA) Negative (Negative); Ketones,Urine 2+ (Negative); Leukocyte Esterase,Urine Negative (Negative); Mucus,Urine Rare /hpf; Nitrite,Urine Negative (Negative); Protein,Urine 2+ (Negative); RBC,Urine <1 /hpf (0-5); Specific Gravity,Urine 1.019 (1.001-1.035); Squamous Epithelial Cell,Urine 6 /hpf (0-4); Urobilinogen,Urine <2.0 mg/dL (<2.0); WBC,Urine 1 /hpf (0-5)
--- NOTE | 2024-08-06 17:49 | CT ---
EXAMINATION TYPE: CT abdomen pelvis w con DATE OF EXAM: 08/06/2024 5:40 PM COMPARISON: 12/07/2023 CLINICAL INDICATION: Female, 23 years old with history of RLQ pain; RLQ pain. TECHNIQUE: Axial CT abdomen pelvis w con;Sagittal and coronal reformats were created on a separate w orkstation. Contrast used:80 ml mL of Isovue 300 with IV Contrast, (none if empty) Oral contrast used: without Oral Contrast (none if empty) CT DLP: 473.7 mGycm, Automated exposure control for dose reduction was used. FINDINGS: LOWER CHEST: Unremarkable ABDOMEN LIVER: Unremarkable GALLBLADDER AND BILE DUCTS: Unremarkable. PANCREAS: Unremarkable. SPLEEN: Unremarkable. ADRENAL GLANDS: Unremarkable. KIDNEYS AND URETERS: No evidence of hydronephrosis or renal calculus. The ureters are unremarkable. PELVIS BLADDER: No evidence for wall thickening or mass given limitations of exam. REPRODUCTIVE: Arcuate versus septate morphology to the uterine fundus ABDOMEN & PELVIS STOMACH AND BOWEL: No evidence of bowel obstruction. The appendix is normal PERITONEUM/RETROPERITONEUM: No evidence of pneumoperitoneum or free fluid. VASCULATURE: No evidence of aortic aneurysm. MUSCULOSKELETAL: No acute osseous abnormalities LYMPH NODES: No gross evidence for lymphadenopathy. SOFT TISSUE/ABDOMINAL WALL: Unremarkable IMPRESSION: No evidence for obstructive uropathy or renal calculus. The appendix is normal. No obvious acute abdo griffin process. [facility], , 08/06/2024 5:47 PM
[2024-08-06] MEDS: diphenhydrAMINE 50 MG/ML 1 ML VIAL IVP STA (18:20)
[2024-08-06] MEDS: PROCHLORPERAZINE INJ 10 MG/2 ML VIAL IVP STA (18:59)
[2024-08-06] MEDS: POTASSIUM CHLORIDE ER 20 MEQ TAB.ER PO STA (20:01)
[2024-08-06] MEDS ORDERED: NALOXONE 0.4 MG/ML 1 ML VIAL IV PRN (20:34)
[2024-08-06] MEDS: POTASSIUM CHLORIDE 10 MEQ in WATER FOR INJECTION 1 100ML.BAG IVPB SCH (20:34)
[2024-08-06] MEDS ORDERED: PROCHLORPERAZINE 5 MG TAB PO PRN (20:34)
[2024-08-06] MEDS: SODIUM CHLORIDE 0.9% 1,000 ML IV SCH (22:26)
[2024-08-07] MEDS: MORPHINE SULFATE 4 MG/ML SYRINGE IV PRN (02:12)
[2024-08-07] MEDS: ONDANSETRON 4 MG/2 ML VIAL IVP PRN (02:12)
[2024-08-07] MEDS: KETOROLAC 15 MG/ML 1 ML VIAL IVP PRN (05:00)
[2024-08-07 06:29] LABS: Basophils % (A) 0 %; Eosinophils % (A) 0 %; HCT 39.5 % (34.0-46.0); HGB 13.3 gm/dL (11.4-16.0); Lymphocytes # (A) 1.4 k/uL (1.0-4.8); Lymphocytes % (A) 14 %; MCHC 33.6 g/dL (31.0-37.0); MCV 92.3 fL (80.0-100.0); Mean Platelet Volume 7.6; Monocytes # (A) 0.5 k/uL (0-1.0); Monocytes % (A) 5 %; Neutrophils # (A) 7.7 k/uL (1.3-7.7); Neutrophils % (A) 79 %; Platelet Count 237 k/uL (150-450); RBC 4.28 m/uL (3.80-5.40); RDW 12.2 % (11.5-15.5); WBC 9.7 k/uL (3.8-10.6)
[2024-08-07 06:56] LABS: African American GFR (CKD) >90 (>60 ml/min/1.73 sqM); Anion Gap 10 mmol/L; Blood Urea Nitrogen 14 mg/dL (7-17); Calcium 8.7 mg/dL (8.4-10.2); Carbon Dioxide 32 mmol/L (22-30); Chloride 92 mmol/L (98-107); Glucose 95 mg/dL (74-99); Non-African American GFR(CKD) >90 (>60 ml/min/1.73 sqM); Potassium 2.8 mmol/L (3.5-5.1); Sodium 134 mmol/L (137-145)
[2024-08-07] MEDS ORDERED: Potassium Replacement Protocol 1 EACH MISC MISCELLANE PRN (11:58)
[2024-08-07] MEDS: POTASSIUM CHLORIDE ER 20 MEQ TAB.ER PO SCH (12:33)
[2024-08-07] MEDS: POTASSIUM CHLORIDE 10 MEQ in WATER FOR INJECTION 1 100ML.BAG IVPB SCH (12:35)
[2024-08-07] MEDS ORDERED: ACETAMINOPHEN TAB 325 MG TAB PO PRN (12:57)
--- NOTE | 2024-08-07 14:58 | P.GSCN ---
History of Present Illness Consult date: 08/07/24 History of present illness: CHIEF COMPLAINT: Right sided abdominal pain HISTORY OF PRESENT ILLNESS: This is a 23-year-old female who presented with right upper quadrant abdominal pain that radiated to her lower back x 4 days. Patient reports symptoms started Wednesday evening and then on Wednesday she was having vomiting. Today she reports having a little diarrhea. She reports that pain is worse after eating. She reports she has chronic pain with her endometriosis. She reports that that pain is usually in the left lower abdomen. She has had laparoscopic surgery for her endometriosis in 2017. Her last EGD and colonoscopy was 2 years ago and reports no abnormalities. CT scan and pelvis were negative. She did have mildly elevated total bilirubin and AST. W ith elevated white count on admission. Patient reports her menstrual cycle ended 2 weeks ago. Patient reports family history of gallbladder disease. PAST MEDICAL HISTORY: Endometriosis, benign brain tumor, benign breast tumors PAST SURGICAL HISTORY: Laparoscopy for her endometriosis in 2016/2017. EGD colonoscopy about 2 years ago, and umbilical hernia repair as an MEDICATIONS: See below ALLERGIES: See below SOCIAL HISTORY: No illicit drug use. REVIEW OF SYSTEMS: CONSTITUTIONAL: Denies fever or chills. HEENT: Denies blurred vision, vision changes, or eye pain. Denies hemoptysis CARDIOVASCULAR: Denies chest pain or pressure. RESPIRATORY: No shortness of breath. GASTROINTESTINAL: See HPI for pertinent findings HEMATOLOGIC: Denies bleeding disorders. GENITOURINARY: Denies any blood in urine or increased urinary frequency. SKIN: Denies pruitis. Denies rash. PHYSICAL EXAM: VITAL SIGNS: Reviewed GENERAL: Well-developed in no acute distress. HEENT: No sclera icterus. Extraocular movements grossly intact. Moist buccal mucosa. Head is atraumatic, normocephalic. No nasal drainage. ABDOMEN: Soft. Nondistended. Tenderness with palpation right upper quadrant, epigastric and right mid abdomen. Mild tenderness left lower quadrant NEUROLOGIC: Alert and oriented. Cranial nerves II through XII grossly intact. LABORATORY DATA: WBC 13.4 down to 9.7 Hgb 13.3 platelets 237 Sodium 134 potassium is 2.8 creatinine 0.76 Magnesium 2.2 Total bilirubin 1.4 AST 45 ALT 26 alk phos 77 Lipase 63 IMAGING: CT scan abdomen pelvis reports no evidence for obstructive uropathy or renal calculus. Appendix normal. No acute abdominal process. ASSESSMENT: 1. Right upper quadrant abdominal pain and Mildly elevated LFTs. 2. History of endometriosis and chronic left lower quadrant abdominal pain 3. Hypokalemia PLAN: -Will order gallbladder ultrasound and HIDA scan to evaluate for gallbladder disorder -Continue clear liquid diet for now -Check LFTs in a.m. -Continue to replace potassium Physician Leather Polisher note has been reviewed by physician. Signing provider agrees with the documented findings, assessment, and plan of care. Past Medical History Past Medical History: No Reported History Additional Past Medical History / Comment(s): endomertriosis. benign breast tumors. benign brain tumor History of Any Multi-Drug Resistant Organisms: None Reported Additional Past Surgical History / Comment(s): Brain tumor, breast tumor x2, Endometriosism, EGD/Colonoscopy, Bilateral ear Tympanostomyx3 Past Anesthesia/Blood Transfusion Reactions: No Reported Reaction Past Psychological History: No Psychological Hx Reported Smoking Status: Vaper Past Alcohol Use History: Occasional Past Drug Use History: Marijuana - Past Family History Father Family Medical History: Hypertension Medications and Allergies Home Medications Medication Instructions Recorded Confirmed Type No Known Home Medications 08/07/24 08/07/24 History Allergies Allergy/AdvReac Type Severity Reaction Status Date / Time erythromycin base Allergy Rash/Hives Verified 08/07/24 10:58 Penicillins Allergy Rash/Hives Verified 08/07/24 10:58 sulfamethoxazole Allergy Rash/Hives/ Verified 08/07/24 10:58 [From Bactrim] Anaphylaxis trimethoprim [From Bactrim] Allergy Rash/Hives/ Verified 08/07/24 10:58 Anaphylaxis Surgical - Exam Vital Signs Temp Pulse Resp Pulse Ox 97.8 F 98 16 98 08/06/24 14:37 08/06/24 14:37 08/06/24 14:37 08/06/24 14:37 Results - Labs 08/07/24 05:31 08/07/24 05:31 Abnormal Lab Results - Last 24 Hours (Table) 08/06/24 08/06/24 08/06/24 Range/Units 15:33 15:33 16:55 WBC 13.4 H (3.8-10.6) k/uL Neutrophils # 11.1 H (1.3-7.7) k/uL Sodium (137-145) mmol/L Potassium 3.0 L (3.5-5.1) mmol/L Chloride 83 L (98-107) mmol/L Carbon Dioxide 39 H (22-30) mmol/L Total Bilirubin 1.4 H (0.2-1.3) mg/dL AST 45 H (14-36) U/L Total Protein 8.6 H (6.3-8.2) g/dL Albumin 5.4 H (3.5-5.0) g/dL Urine Appearance Cloudy H (Clear) Urine Protein 2+ H (Negative) Urine Ketones 2+ H (Negative) Ur Squamous Epith Cells 6 H (0-4) /hpf Urine Bacteria Rare H (None) /hpf Urine Mucus Rare H (None) /hpf 08/07/24 Range/Units 05:31 WBC (3.8-10.6) k/uL Neutrophils # (1.3-7.7) k/uL Sodium 134 L (137-145) mmol/L Potassium 2.8 L (3.5-5.1) mmol/L Chloride 92 L (98-107) mmol/L Carbon Dioxide 32 H (22-30) mmol/L Total Bilirubin (0.2-1.3) mg/dL AST (14-36) U/L Total Protein (6.3-8.2) g/dL Albumin (3.5-5.0) g/dL Urine Appearance (Clear) Urine Protein (Negative) Urine Ketones (Negative) Ur Squamous Epith Cells (0-4) /hpf Urine Bacteria (None) /hpf Urine Mucus (None) /hpf Diabetes panel 08/06/24 08/07/24 Range/Units 15:33 05:31 Sodium 137 134 L (137-145) mmol/L Potassium 3.0 L 2.8 L (3.5-5.1) mmol/L Chloride 83 L 92 L (98-107) mmol/L Carbon Dioxide 39 H 32 H (22-30) mmol/L BUN 16 14 (7-17) mg/dL Creatinine 0.89 0.76 (0.52-1.04) mg/dL Glucose 96 95 (74-99) mg/dL Calcium 10.1 8.7 (8.4-10.2) mg/dL AST 45 H (14-36) U/L ALT 26 (4-34) U/L Alkaline Phosphatase 77 (38-126) U/L Total Protein 8.6 H (6.3-8.2) g/dL Albumin 5.4 H (3.5-5.0) g/dL Calcium panel 08/06/24 08/07/24 Range/Units 15:33 05:31 Calcium 10.1 8.7 (8.4-10.2) mg/dL Albumin 5.4 H (3.5-5.0) g/dL Pituitary panel 08/06/24 08/07/24 Range/Units 15:33 05:31 Sodium 137 134 L (137-145) mmol/L Potassium 3.0 L 2.8 L (3.5-5.1) mmol/L Chloride 83 L 92 L (98-107) mmol/L Carbon Dioxide 39 H 32 H (22-30) mmol/L BUN 16 14 (7-17) mg/dL Creatinine 0.89 0.76 (0.52-1.04) mg/dL Glucose 96 95 (74-99) mg/dL Calcium 10.1 8.7 (8.4-10.2) mg/dL Adrenal panel 08/06/24 08/07/24 Range/Units 15:33 05:31 Sodium 137 134 L (137-145) mmol/L Potassium 3.0 L 2.8 L (3.5-5.1) mmol/L Chloride 83 L 92 L (98-107) mmol/L Carbon Dioxide 39 H 32 H (22-30) mmol/L BUN 16 14 (7-17) mg/dL Creatinine 0.89 0.76 (0.52-1.04) mg/dL Glucose 96 95 (74-99) mg/dL Calcium 10.1 8.7 (8.4-10.2) mg/dL Total Bilirubin 1.4 H (0.2-1.3) mg/dL AST 45 H (14-36) U/L ALT 26 (4-34) U/L Alkaline Phosphatase 77 (38-126) U/L Total Protein 8.6 H (6.3-8.2) g/dL Albumin 5.4 H (3.5-5.0) g/dL
--- NOTE | 2024-08-07 15:52 | US ---
EXAMINATION TYPE: US gallbladder DATE OF EXAM: 08/07/2024 COMPARISON: Ultrasound gallbladder 09/19/2023, CT abdomen and pelvis 08/06/2024 CLINICAL INDICATION: Female, 23 years old with history of RUQ abdominal pain, vomiting; vomiting x 4 days TECHNIQUE: Grayscale and color Doppler imaging of the right upper quadrant was performed. FINDINGS: EXAM MEASUREMENTS: Liver Length: 15.5 cm Gallbladder Wall: 0.2 cm CBD: 0.5 cm Right Kidney: 11.5 x 5.2 x 4.2 cm Pancreas: wnl Liver: wnl Gallbladder: wnl Evidence for sonographic Erickson's sign: no CBD: wnl Right Kidney: wnl The pancreas and liver appear within normal limits. The gallbladder shows no wall thickening, stones, or surrounding fluid. Negative sonographic Erickson's sign. Common bile duct is within normal limits. Right kidney demonstrates no hydronephrosis, shadowing calculi or solid mass. IMPRESSION: No acute process. [facility], , 08/07/2024 3:49 PM
[2024-08-07] MEDS: PANTOPRAZOLE 40 MG/10 ML VIAL IVP SCH (17:09)
--- NOTE | 2024-08-07 18:29 | P.HPIM ---
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 Patient came in with complaints of right sided flank pain which began Wednesday evening while at work. 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 She states that she had a sudden onset of right sided flank pain she ended up leaving work went home took an Excedrin went to sleep and when she woke up in the morning the pain had not gone away and she was having a bouts of emesis. Reports emesis is nonbloody no reports of coffee-ground emesis. She is not having any epigastric tenderness the pain is in the right flank wrapping around to the front. She does state that the pain has been worse after eating although she has not been able to eat much since Wednesday and has been continued on clear liquid diet. Patient states that her menses ended on July 25 does not appear to be any type of cyclic pain associated with endometriosis. She is not having any diarrhea. She has had normal bowel movements. An abdominal pelvis CT was completed on admission which reveals no evidence for obstructive uropathy or renal calculus. The appendix is normal there is no obvious acute abdominal process. The gallbladder is unremarkable. The pancreas is unremarkable. Pacer within normal limits. Patient's bilirubin is 1.4 AST is 45 ALT 26 alk phos 77. White blood cell count of 13.4 neutrophils 11.1. Patient sodium level is 137 potassium 3.0, chloride 83 CO2 39. REVIEW OF SYSTEMS: CONSTITUTIONAL: No fever, no malaise, no fatigue. HEENT: No recent visual problems or hearing problems. Denied any sore throat. CARDIOVASCULAR: No chest pain, orthopnea, PND, no palpitations, no syncope. PULMONARY: No shortness of breath, no cough, no hemoptysis. GASTROINTESTINAL: No diarrhea, no nausea, no vomiting, no abdominal pain. NEUROLOGICAL: No headaches, no weakness, no numbness. HEMATOLOGICAL: Denies any bleeding or petechiae. GENITOURINARY: Denies any burning micturition, frequency, or urgency. MUSCULOSKELETAL/RHEUMATOLOGICAL: Denies any joint pain, swelling, or any muscle pain. ENDOCRINE: Denies any polyuria or polydipsia. The rest of the 14-point review of systems is negative. PHYSICAL EXAMINATION: GENERAL: The patient is alert and oriented x3, not in any acute distress. Well developed, well nourished. HEENT: Pupils are round and equally reacting to light. EOMI. No scleral icterus. No conjunctival pallor. Normocephalic, atraumatic. No pharyngeal erythema. No thyromegaly. CARDIOVASCULAR: S1 and S2 present. No murmurs, rubs, or gallops. PULMONARY: Chest is clear to auscultation, no wheezing or crackles. ABDOMEN: Soft, nontender, nondistended, normoactive bowel sounds. No palpable organomegaly. MUSCULOSKELETAL: No joint swelling or deformity. EXTREMITIES: No cyanosis, clubbing, or pedal edema. NEUROLOGICAL: Gross neurological examination did not reveal any focal deficits. SKIN: No rashes. Assessment and plan Right sided flank pain under investigation Leukocytosis reactive has normalized with IV fluids Contraction alkalosis from dehydration Hypokalemia dehydrational from emesis Abnormal UA not overly suggestive of an acute urinary tract infection patient does state that a few weeks ago she was having some burning discomfort does not have any health insurance so she took some [id number] supplementation states that the symptoms had subsided for a couple weeks now is having this right sided flank pain. This could possibly be a pyelonephritis secondary to untreated urinary tract infection. Hx of endometriosis Hx of bening tumor of pituatary gland Hx of lumpectomy x 2 Hx of vaping Occasional marijuana use GI prophylaxis Full Code Plan Check urine HCG Continue IV toradol Cotninue IV zofran and IV compazine Continue normal saline at 75 mls/hr General surgery consultation AUTO TRANSMISSION TECHNICIAN to follow up with patient in the office felt this was not a gynecological issue related to the endometriosis. The impression and plan of care has been dictated by Lucretia Briseno Nurse Practitioner as directed. Dr. Emily MD I have performed a history and physical examination and medical decision making of this patient, discussed the same with the dictator, and agree with the dictators assessment and plan as written, documented as a scribe. Based on total visit time, I have performed more than 50% of this visit. Past Medical History Past Medical History: No Reported History Additional Past Medical History / Comment(s): endomertriosis. benign breast tumors. benign brain tumor History of Any Multi-Drug Resistant Organisms: None Reported Additional Past Surgical History / Comment(s): Brain tumor, breast tumor x2, En dometriosism, EGD/Colonoscopy, Bilateral ear Tympanostomyx3 Past Anesthesia/Blood Transfusion Reactions: No Reported Reaction Past Psychological History: No Psychological Hx Reported Smoking Status: Vaper Past Alcohol Use History: Occasional Past Drug Use History: Marijuana - Past Family History Father Family Medical History: Hypertension Medications and Allergies Home Medications Medication Instructions Recorded Confirmed Type No Known Home Medications 08/07/24 08/07/24 History Allergies Allergy/AdvReac Type Severity Reaction Status Date / Time erythromycin base Allergy Rash/Hives Verified 08/07/24 10:58 Penicillins Allergy Rash/Hives Verified 08/07/24 10:58 sulfamethoxazole Allergy Rash/Hives/ Verified 08/07/24 10:58 [From Bactrim] Anaphylaxis trimethoprim [From Bactrim] Allergy Rash/Hives/ Verified 08/07/24 10:58 Anaphylaxis Physical Exam Vitals: Vital Signs Temp Pulse Pulse Resp BP BP Pulse Ox 08/07/24 07:00 98.1 F 83 16 109/63 98 08/07/24 04:23 98.3 F 80 18 144/84 98 08/06/24 20:31 85 18 107/69 95 08/06/24 18:17 92 18 112/79 100 08/06/24 17:51 115/77 08/06/24 16:00 98.3 F 76 17 104/78 98 08/06/24 14:37 97.8 F 98 16 98 Intake and Output 08/06/24 08/07/24 08/07/24 22:59 06:59 14:59 Other: # Voids 1 Weight 49.895 kg Results CBC & Chem 7: 08/07/24 05:31 08/07/24 05:31 Labs: Abnormal Lab Results - Last 24 Hours (Table) 08/06/24 08/06/24 08/06/24 Range/Units 15:33 15:33 16:55 WBC 13.4 H (3.8-10.6) k/uL Neutrophils # 11.1 H (1.3-7.7) k/uL Sodium (137-145) mmol/L Potassium 3.0 L (3.5-5.1) mmol/L Chloride 83 L (98-107) mmol/L Carbon Dioxide 39 H (22-30) mmol/L Total Bilirubin 1.4 H (0.2-1.3) mg/dL AST 45 H (14-36) U/L Total Protein 8.6 H (6.3-8.2) g/dL Albumin 5.4 H (3.5-5.0) g/dL Urine Appearance Cloudy H (Clear) Urine Protein 2+ H (Negative) Urine Ketones 2+ H (Negative) Ur Squamous Epith Cells 6 H (0-4) /hpf Urine Bacteria Rare H (None) /hpf Urine Mucus Rare H (None) /hpf 08/07/24 Range/Units 05:31 WBC (3.8-10.6) k/uL Neutrophils # (1.3-7.7) k/uL Sodium 134 L (137-145) mmol/L Potassium 2.8 L (3.5-5.1) mmol/L Chloride 92 L (98-107) mmol/L Carbon Dioxide 32 H (22-30) mmol/L Total Bilirubin (0.2-1.3) mg/dL AST (14-36) U/L Total Protein (6.3-8.2) g/dL Albumin (3.5-5.0) g/dL Urine Appearance (Clear) Urine Protein (Negative) Urine Ketones (Negative) Ur Squamous Epith Cells (0-4) /hpf Urine Bacteria (None) /hpf Urine Mucus (None) /hpf Assessment and Plan Time with Patient: Less than 30
--- NOTE | 2024-08-08 10:05 | NM ---
EXAMINATION TYPE: NM hepatobiliary w CCK DATE OF EXAM: 08/08/2024 COMPARISON: NONE INDICATION: Right upper quadrant pain, elevated liver function tests TECHNIQUE: After the intravenous administration of 5.11 mCi Tc 99m Mebrofenin hepatobiliary scintigra phy is performed. Images were obtained immediately post injection. FINDINGS: There is prompt uptake and excretion of radiotracer by the liver. Extrahepatic ducts are identified at 12 minutes. The gallbladder is visualized within 16 minutes. Small bowel activity is noted within 18 minutes. At one hour 8 ounces of oral ensure plus is given to mimic CCK and gallbladder ejection fraction is c alculated at 9 %, which is in the normal range. (Normal >35% and <80%.). IMPRESSION: 1. Correlate for biliary akinesia. There is an abnormally low ejection fraction 9%. [facility], , 08/08/2024 10:03 AM
[2024-08-08 10:16] LABS: Basophils % (A) 0 %; Eosinophils % (A) 0 %; HCT 43.8 % (34.0-46.0); HGB 14.8 gm/dL (11.4-16.0); Lymphocytes # (A) 1.2 k/uL (1.0-4.8); Lymphocytes % (A) 10 %; MCH 31.9 pg (25.0-35.0); MCHC 33.8 g/dL (31.0-37.0); MCV 94.3 fL (80.0-100.0); Mean Platelet Volume 7.1; Monocytes # (A) 0.6 k/uL (0-1.0); Monocytes % (A) 5 %; Neutrophils # (A) 10.1 k/uL (1.3-7.7); Neutrophils % (A) 84 %; Platelet Count 254 k/uL (150-450); RBC 4.64 m/uL (3.80-5.40); RDW 11.7 % (11.5-15.5)
[2024-08-08 10:28] LABS: ALT 32 U/L (4-34); AST 44 U/L (14-36); African American GFR (CKD) >90 (>60 ml/min/1.73 sqM); Albumin/Globulin Ratio 1.7; Alkaline Phosphatase 64 U/L (38-126); Anion Gap 10 mmol/L; Blood Urea Nitrogen 10 mg/dL (7-17); Calcium 9.5 mg/dL (8.4-10.2); Carbon Dioxide 30 mmol/L (22-30); Chloride 96 mmol/L (98-107); Globulin 2.9 g/dL; Glucose 117 mg/dL (74-99); Magnesium 2.1 mg/dL (1.6-2.3); Non-African American GFR(CKD) >90 (>60 ml/min/1.73 sqM); Potassium 3.9 mmol/L (3.5-5.1); Sodium 136 mmol/L (137-145); Total Bilirubin 1.7 mg/dL (0.2-1.3); Total Protein 7.9 g/dL (6.3-8.2)
[2024-08-08] MEDS: ONDANSETRON 4 MG/2 ML VIAL IVP PRN (11:13)
--- NOTE | 2024-08-08 13:44 | P.PN ---
Subjective Progress Note Date: 08/08/24 SURGICAL PROGRESS NOTE CHIEF COMPLAINT: Abdominal pain HISTORY OF PRESENT ILLNESS: Patient continues to complain of right upper quadrant abdominal pain and back pain. She has been vomiting. Nursing staff reports that patient spends most of her day in the shower. Patient reports that she has relief of her pain in the shower. Gallbladder ultrasound completed reports no acute process. HIDA scan reports biliary akinesia with EF at 9%. Afebrile. WBC is 12 total bilirubin 1.7 AST 44 ALT 32 alk phos 64 PHYSICAL EXAM: VITAL SIGNS: Reviewed. GENERAL: Well-developed in no acute distress. ABDOMEN: Soft. Nondistended. Mild tenderness palpation right upper quadrant and left lower quadrant NEUROLOGIC: Alert and oriented. Cranial nerves II through XII grossly intact. ASSESSMENT: 1. Biliary dyskinesia with EF of 9% 2. Right upper quadrant abdominal pain and Mildly elevated LFTs. 3. History of endometriosis and chronic left lower quadrant abdominal pain 4. Hypokalemia resolved PLAN: -Patient scheduled for laparoscopic cholecystectomy with Dr. Delvalle on -Continue clear liquid diet can advance to low-fat if tolerated Physician Shuttle Inspector note has been reviewed by physician. Signing provider agrees with the documented findings, assessment, and plan of care. Objective - Vital Signs Vital signs: Vital Signs Temp 97.8 F 08/08/24 10:42 Pulse 83 08/08/24 10:42 Resp 16 08/08/24 10:42 BP 114/69 08/08/24 10:42 Pulse Ox 100 08/08/24 10:42 FiO2 Intake & Output 08/07/24 08/08/24 08/08/24 18:59 06:59 18:59 Intake Total 200 Balance 200 Intake: Oral 200 Other: Voiding Method Toilet Toilet # Voids 5 3 - Labs CBC & Chem 7: 08/08/24 09:44 08/08/24 09:44 Labs: Abnormal Lab Results - Last 24 Hours (Table) 08/08/24 08/08/24 Range/Units 09:44 09:44 WBC 12.0 H (3.8-10.6) k/uL Neutrophils # 10.1 H (1.3-7.7) k/uL Sodium 136 L (137-145) mmol/L Chloride 96 L (98-107) mmol/L Glucose 117 H (74-99) mg/dL Total Bilirubin 1.7 H (0.2-1.3) mg/dL AST 44 H (14-36) U/L
[2024-08-08] MEDS: HYDROmorphone 0.5 MG/0.5 ML SYRINGE IVP PRN (14:33)
[2024-08-08 15:40] VITALS: BMI 19.8
[2024-08-08] MEDS: PANTOPRAZOLE 40 MG/10 ML VIAL IVP SCH (22:55)
[2024-08-08] MEDS: PROCHLORPERAZINE INJ 10 MG/2 ML VIAL IVP PRN (22:56)
--- NOTE | 2024-08-09 06:24 | P.PN ---
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 Patient came in with complaints of right sided flank pain which began Wednesday evening while at work. 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 She states that she had a sudden onset of right sided flank pain she ended up leaving work went home took an Excedrin went to sleep and when she woke up in the morning the pain had not gone away and she was having a bouts of emesis. Reports emesis is nonbloody no reports of coffee-ground emesis. She is not having any epigastric tenderness the pain is in the right flank wrapping around to the front. She does state that the pain has been worse after eating although she has not been able to eat much since Wednesday and has been continued on clear liquid diet. Patient states that her menses ended on July 25 does not appear to be any type of cyclic pain associated with endometriosis. She is not having any diarrhea. She has had normal bowel movements. An abdominal pelvis CT was completed on admission which reveals no evidence for obstructive uropathy or renal calculus. The appendix is normal there is no obvious acute abdominal process. The gallbladder is unremarkable. The pancreas is unremarkable. Pacer within normal limits. Patient's bilirubin is 1.4 AST is 45 ALT 26 alk phos 77. White blood cell count of 13.4 neutrophils 11.1. Patient sodium level is 137 potassium 3.0, chloride 83 CO2 39. 08/08/2024 Patient is seen in follow-up today reporting severe abdominal pain. Patient underwent gallbladder ultrasound which was normal and underwent HIDA scan per general surgery which was found to be delayed and is being scheduled for laparoscopic cholecystectomy on , 08/10/2024. Patient is afebrile with no reported chest pain or palpitations. Patient denies shortness of breath and is on room air. Patient reports to having significant nausea along with abdominal pain. Review of systems: Constitutional: No reports of fatigue, fever, or chills Cardiovascular: No reports of chest pain or palpitations Respiratory: No reports of shortness of breath or cough GI: reports of nausea, no vomiting, or diarrhea : No reports of dysuria or retention Neurovascular: No reports of weakness or numbness All medications have been reviewed PHYSICAL EXAMINATION: GENERAL: The patient is alert and oriented x3, not in any acute distress. Well developed, thin built, and well nourished. HEENT: Pupils are round and equally reacting to light. EOMI. No scleral icterus. No conjunctival pallor. Normocephalic, atraumatic. No pharyngeal erythema. No thyromegaly. CARDIOVASCULAR: S1 and S2 present. No murmurs, rubs, or gallops. PULMONARY: Chest is clear to auscultation, no wheezing or crackles. ABDOMEN: Soft, nontender, nondistended, normoactive bowel sounds. No palpable organomegaly. MUSCULOSKELETAL: No joint swelling or deformity. EXTREMITIES: No cyanosis, clubbing, or pedal edema. NEUROLOGICAL: Gross neurological examination did not reveal any focal deficits. SKIN: No rashes. Assessment: Right sided flank pain under investigation Leukocytosis reactive has normalized with IV fluids Contraction alkalosis from dehydration Hypokalemia dehydrational from emesis, improved after replacement Abnormal UA not overly suggestive of an acute urinary tract infection patient does state that a few weeks ago she was having some burning discomfort does not have any health insurance so she took some [id number] supplementation states that the symptoms had subsided for a couple weeks now is having this right sided flank pain. This could possibly be a pyelonephritis secondary to untreated urinary tract infection. Hx of endometriosis Hx of benign tumor of pituatary gland Hx of lumpectomy x 2 Hx of vaping Occasional marijuana use GI prophylaxis Full Code Plan: Urine hCG was negative continue on IV Toradol along with Zofran and Compazine as needed. Patient reporting severe pain 10/10 in the abdomen and will adjust medications accordingly Patient did undergo HIDA scan which was abnormal and general surgery following with plans on laparoscopic cholecystectomy on 08/10/2024 Continue normal saline at 75 mls/hr and will follow-up on repeat labs SCRAP CUTTER to follow up with patient in the office felt this was not a gynecological issue related to the endometriosis. The impression and plan of care has been dictated by Meli Lucero, Nurse Practitioner as directed. Dr. Emily MD I have performed a history and physical examination and medical decision making of this patient, discussed the same with the dictator, and agree with the dictators assessment and plan as written, documented as a scribe. Based on total visit time, I have performed more than 50% of this visit. Objective - Vital Signs Vital signs: Vital Signs Temp 98.7 F 08/08/24 02:34 Pulse 69 08/08/24 02:34 Resp 15 08/08/24 02:34 BP 109/62 08/08/24 02:34 Pulse Ox 98 08/08/24 02:34 FiO2 Intake & Output 08/07/24 08/08/24 08/08/24 18:59 06:59 18:59 Intake Total 200 Balance 200 Intake: Oral 200 Other: Voiding Method Toilet Toilet # Voids 5 3 - Labs CBC & Chem 7: 08/08/24 09:44 08/08/24 09:44
[2024-08-09 08:47] LABS: ALT 28 U/L (8-44); AST 32 U/L (13-35); Albumin 4.4 g/dL (3.8-4.9); Alkaline Phosphatase 60 U/L (41-126); BUN/Creat Ratio 9.12 Ratio (12.00-20.00); Basophils # (A) 0.03 X 10*3/uL (0.00-0.10); Basophils % (A) 0.4 %; Blood Urea Nitrogen 7.3 mg/dL (9.0-27.0); Calcium 8.9 mg/dL (8.7-10.3); Carbon Dioxide 25.9 mmol/L (21.6-31.8); Chloride 102 mmol/L (96-109); Eosinophils # (A) 0.01 X 10*3/uL (0.04-0.35); Eosinophils % (A) 0.1 %; Globulin 2.1 g/dL (1.6-3.3); Glucose 113 mg/dL (70-110); HCT 38.6 % (37.2-46.3); HGB 13.6 g/dL (12.0-15.0); Lymphocytes # (A) 1.91 X 10*3/uL (0.90-5.00); Lymphocytes % (A) 24.9 %; MCH 31.6 pg (27.0-32.0); MCHC 35.2 g/dL (32.0-37.0); MCV 89.8 FL (80.0-97.0); Mean Platelet Volume 9.9 FL (9.5-12.2); Monocytes # (A) 0.57 X 10*3/uL (0.20-1.00); Monocytes % (A) 7.4 %; NRBC Per 100 WBC 0 X 10*3/uL (0.00-0.01); Neutrophils # (A) 5.13 X 10*3/uL (1.80-7.70); Neutrophils % (A) 66.8 %; Platelet Count 229 X 10*3/uL (140-440); Potassium 3.2 mmol/L (3.5-5.5); RDW 11.9 % (11.5-14.5); Sodium 140 mmol/L (135-145); Total Bilirubin 0.9 mg/dL (0.3-1.2); Total Protein 6.5 g/dL (6.2-8.2); WBC 7.68 X 10*3/uL (4.50-10.00)
--- NOTE | 2024-08-09 13:50 | P.PN ---
Subjective Progress Note Date: 08/09/24 SURGICAL PROGRESS NOTE CHIEF COMPLAINT: Abdominal pain HISTORY OF PRESENT ILLNESS: Patient reports vomiting this morning. She reports continuing to have this right upper quadrant abdominal pain. Her left lower quadrant pain has lessened. Gallbladder ultrasound completed reports no acute process. HIDA scan reports biliary akinesia with EF at 9%. Afebrile. WBC has normalized from 12 down to 7.68 potassium low at 3.2 PHYSICAL EXAM: VITAL SIGNS: Reviewed. GENERAL: Well-developed in no acute distress. ABDOMEN: Soft. Nondistended. Mild tenderness palpation right upper quadrant and left lower quadrant NEUROLOGIC: Alert and oriented. Cranial nerves II through XII grossly intact. ASSESSMENT: 1. Biliary dyskinesia with EF of 9% 2. Right upper quadrant abdominal pain and Mildly elevated LFTs. 3. History of endometriosis and chronic left lower quadrant abdominal pain 4. Hypokalemia PLAN: -Patient scheduled for laparoscopic cholecystectomy tomorrow with Dr. Delvalle -N.p.o. after midnight -Potassium being replaced Physician Production Controller note has been reviewed by physician. Signing provider agrees with the documented findings, assessment, and plan of care. Objective - Vital Signs Vital signs: Vital Signs Temp 98.4 F 08/09/24 07:00 Pulse 67 08/09/24 07:00 Resp 16 08/09/24 07:00 BP 108/67 08/09/24 07:00 Pulse Ox 97 08/09/24 07:00 FiO2 Intake & Output 08/08/24 08/09/24 08/09/24 18:59 06:59 18:59 Output Total 200 Balance -200 Weight 52.3 kg Output: Emesis 200 Other: Voiding Method Toilet # Voids 8 1 - Labs CBC & Chem 7: 08/09/24 05:42 08/09/24 05:42 Labs: Abnormal Lab Results - Last 24 Hours (Table) 08/09/24 08/09/24 Range/Units 05:42 05:42 Eosinophils # 0.01 L (0.04-0.35) X 10*3/uL Potassium 3.2 L (3.5-5.5) mmol/L Anion Gap 12.10 H (4.00-12.00) mmol/L BUN 7.3 L (9.0-27.0) mg/dL BUN/Creatinine Ratio 9.12 L (12.00-20.00) Ratio Glucose 113 H (70-110) mg/dL Microbiology - Last 24 Hours (Table) 08/07/24 17:32 Urine Culture - Final Urine,Clean Catch
[2024-08-09] MEDS: POTASSIUM CHLORIDE ER 20 MEQ TAB.ER PO STA (14:06)
--- NOTE | 2024-08-09 23:24 | P.PN ---
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 Patient came in with complaints of right sided flank pain which began Wednesday evening while at work. 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 She states that she had a sudden onset of right sided flank pain she ended up leaving work went home took an Excedrin went to sleep and when she woke up in the morning the pain had not gone away and she was having a bouts of emesis. Reports emesis is nonbloody no reports of coffee-ground emesis. She is not having any epigastric tenderness t he pain is in the right flank wrapping around to the front. She does state that the pain has been worse after eating although she has not been able to eat much since Wednesday and has been continued on clear liquid diet. Patient states that her menses ended on July 25 does not appear to be any type of cyclic pain associated with endometriosis. She is not having any diarrhea. She has had normal bowel movements. An abdominal pelvis CT was completed on admission which reveals no evidence for obstructive uropathy or renal calculus. The appendix is normal there is no obvious acute abdominal process. The gallbladder is unremarkable. The pancreas is unremarkable. Pacer within normal limits. Patient's bilirubin is 1.4 AST is 45 ALT 26 alk phos 77. White blood cell count of 13.4 neutrophils 11.1. Patient sodium level is 137 potassium 3.0, chloride 83 CO2 39. 08/08/2024 Patient is seen in follow-up today reporting severe abdominal pain. Patient underwent gallbladder ultrasound which was normal and underwent HIDA scan per general surgery which was found to be delayed and is being scheduled for laparoscopic cholecystectomy on , 08/10/2024. Patient is afebrile with no reported chest pain or palpitations. Patient denies shortness of breath and is on room air. Patient reports to having significant nausea along with abdominal pain. 08/09/2024 Patient is evaluated today in follow up on the medical floor. Patient will be going for laproscopic cholecsytectomy tomorrow. White blood cell count 7.68. Sodium 140, potassium 3.2. Review of systems: Constitutional: No reports of fatigue, fever, or chills Cardiovascular: No reports of chest pain or palpitations Respiratory: No reports of shortness of breath or cough GI: reports of nausea, no vomiting, or diarrhea : No reports of dysuria or retention Neurovascular: No reports of weakness or numbness All medications have been reviewed PHYSICAL EXAMINATION: GENERAL: The patient is alert and oriented x3, not in any acute distress. Well developed, thin built, and well nourished. HEENT: Pupils are round and equally reacting to light. EOMI. No scleral icterus. No conjunctival pallor. Normocephalic, atraumatic. No pharyngeal erythema. No thyromegaly. CARDIOVASCULAR: S1 and S2 present. No murmurs, rubs, or gallops. PULMONARY: Chest is clear to auscultation, no wheezing or crackles. ABDOMEN: Soft, nontender, nondistended, normoactive bowel sounds. No palpable organomegaly. MUSCULOSKELETAL: No joint swelling or deformity. EXTREMITIES: No cyanosis, clubbing, or pedal edema. NEUROLOGICAL: Gross neurological examination did not reveal any focal deficits. SKIN: No rashes. Assessment: Right sided flank pain under investigation Leukocytosis reactive has normalized with IV fluids Contraction alkalosis from dehydration Hypokalemia dehydrational from emesis, improved after replacement Abnormal UA not overly suggestive of an acute urinary tract infection patient does state that a few weeks ago she was having some burning discomfort does not have any health insurance so she took some [id number] supplementation states that the symptoms had subsided for a couple weeks now is having this right sided flank pain. This could possibly be a pyelonephritis secondary to untreated urinary tract infection. Hx of endometriosis Hx of benign tumor of pituatary gland Hx of lumpectomy x 2 Hx of vaping Occasional marijuana use GI prophylaxis Full Code Plan: Urine hCG was negative continue on IV Toradol along with Zofran and Compazine as needed. Patient reporting severe pain 10/10 in the abdomen and will adjust medications accordingly Patient did undergo HIDA scan which was abnormal and general surgery following with plans on laparoscopic cholecystectomy on 08/10/2024 Continue normal saline at 75 mls/hr and will follow-up on repeat labs BAG SORTER to follow up with patient in the office felt this was not a gynecological issue related to the endometriosis. The impression and plan of care has been dictated by Lucretia Briseno, Nurse Practitioner as directed. Dr. Emily MD I have performed a history and physical examination and medical decision making of this patient, discussed the same with the dictator, and agree with the dictators assessment and plan as written, documented as a scribe. Based on total visit time, I have performed more than 50% of this visit. Objective - Vital Signs Vital signs: Vital Signs Temp 98.6 F 08/09/24 20:00 Pulse 99 08/09/24 20:00 Resp 17 08/09/24 20:00 BP 114/78 08/09/24 20:00 Pulse Ox 86 L 08/09/24 20:00 FiO2 Intake & Output 08/09/24 08/09/24 08/10/24 06:59 18:59 06:59 Output Total 200 Balance -200 Output: Emesis 200 Other: Voiding Method Toilet Toilet # Voids 1 4 3 - Labs CBC & Chem 7: 08/09/24 05:42 08/09/24 05:42 Labs: Abnormal Lab Results - Last 24 Hours (Table) 08/09/24 08/09/24 Range/Units 05:42 05:42 Eosinophils # 0.01 L (0.04-0.35) X 10*3/uL Potassium 3.2 L (3.5-5.5) mmol/L Anion Gap 12.10 H (4.00-12.00) mmol/L BUN 7.3 L (9.0-27.0) mg/dL BUN/Creatinine Ratio 9.12 L (12.00-20.00) Ratio Glucose 113 H (70-110) mg/dL Microbiology - Last 24 Hours (Table) 08/07/24 17:32 Urine Culture - Final Urine,Clean Catch Assessment and Plan Time with Patient: Less than 30
[2024-08-10] MEDS: KETOROLAC 15 MG/ML 1 ML VIAL IVP PRN (00:39)
[2024-08-10 06:16] LABS: Basophils % (A) 0 %; Eosinophils % (A) 0 %; HCT 39.3 % (34.0-46.0); HGB 13.3 gm/dL (11.4-16.0); Lymphocytes # (A) 2.9 k/uL (1.0-4.8); Lymphocytes % (A) 33 %; MCH 31.9 pg (25.0-35.0); MCHC 33.9 g/dL (31.0-37.0); MCV 93.9 fL (80.0-100.0); Mean Platelet Volume 7.1; Monocytes # (A) 0.4 k/uL (0-1.0); Monocytes % (A) 4 %; Neutrophils # (A) 5.2 k/uL (1.3-7.7); Neutrophils % (A) 60 %; Platelet Count 234 k/uL (150-450); RBC 4.18 m/uL (3.80-5.40); RDW 11.7 % (11.5-15.5); WBC 8.7 k/uL (3.8-10.6)
[2024-08-10 06:26] LABS: African American GFR (CKD) >90 (>60 ml/min/1.73 sqM); Anion Gap 7 mmol/L; Blood Urea Nitrogen 4 mg/dL (7-17); Calcium 9.1 mg/dL (8.4-10.2); Carbon Dioxide 28 mmol/L (22-30); Chloride 101 mmol/L (98-107); Glucose 96 mg/dL (74-99); Non-African American GFR(CKD) >90 (>60 ml/min/1.73 sqM); Potassium 3.4 mmol/L (3.5-5.1); Sodium 136 mmol/L (137-145)
[2024-08-10] MEDS: ALPRAZolam 0.25 MG TAB PO STA (08:17)
[2024-08-10] MEDS: POTASSIUM CHLORIDE ER 20 MEQ TAB.ER PO STA (08:29)
[2024-08-10] MEDS ORDERED: POTASSIUM CHLORIDE 10 MEQ in WATER FOR INJECTION 1 100ML.BAG IVPB SCH (09:00)
[2024-08-10] MEDS: HYDROmorphone 0.5 MG/0.5 ML SYRINGE IVP STA (10:47)
[2024-08-10] MEDS: IV FLUID CONTINUATION 1,000 ML IV ONE (11:47)
[2024-08-10] MEDS: DEXAMETHASONE SOD PHOSPHATE 4 MG/ML 1 ML VIAL IVP STA (11:51)
[2024-08-10] MEDS: FAMOTIDINE 20 MG/2 ML VIAL IV STA (11:52)
[2024-08-10] MEDS: MIDAZOLAM 2 MG/2 ML VIAL IVP ONE ×2 (12:06→12:13)
[2024-08-10] MEDS ORDERED: fentaNYL (PF) 50 MCG/ML 2 ML AMP ONE (12:22)
[2024-08-10] MEDS ORDERED: ceFAZolin 1 GM/50 ML BAG (PMX) ONE (12:22)
[2024-08-10] MEDS ORDERED: SUCCINYLCHOLINE CHLORIDE 200 MG/10 ML VIAL IV ONE (12:22)
[2024-08-10] MEDS ORDERED: ROCURONIUM 10 MG/ML (5 ML VIAL) IV ONE (12:22)
[2024-08-10] MEDS ORDERED: MIDAZOLAM 2 MG/2 ML VIAL ONE (12:22)
[2024-08-10] MEDS ORDERED: HYDROmorphone (PF) 1 MG/ML ONE (12:22)
[2024-08-10] MEDS ORDERED: NEOSTIGMINE 1 MG/ML 10 ML VIAL ONE (12:22)
[2024-08-10] MEDS ORDERED: GLYCOPYRROLATE 0.2 MG/ML 2 ML VIAL ONE (12:22)
[2024-08-10] MEDS ORDERED: LIDOCAINE 1% INJ 10MG/ML (20 ML MDV) ONE (12:22)
[2024-08-10] MEDS ORDERED: PROPOFOL 10 MG/ML 20 ML VIAL IV ONE (12:22)
[2024-08-10] MEDS: BUPIVACAINE (PF) 0.25% 30 ML VIAL SQ ONE (12:40)
--- NOTE | 2024-08-10 12:43 | P.PN ---
Subjective Progress Note Date: 08/10/24 SURGICAL PROGRESS NOTE CHIEF COMPLAINT: Abdominal pain HISTORY OF PRESENT ILLNESS: Patient had episode of vomiting this morning. She continues to report right upper quadrant abdominal pain. Gallbladder ultrasound completed reports no acute process. HIDA scan reports biliary akinesia with EF at 9%. Afebrile. WBC is 8.7 Hgb 13.3 platelets 234 sodium 136 potassium 3.4 creatinine 0.71 urine hCG not detected PHYSICAL EXAM: VITAL SIGNS: Reviewed. GENERAL: Well-developed in no acute distress. ABDOMEN: Soft. Nondistended. Mild tenderness palpation right upper quadrant and left lower quadrant NEUROLOGIC: Alert and oriented. Cranial nerves II through XII grossly intact. ASSESSMENT: 1. Biliary dyskinesia with EF of 9% 2. Right upper quadrant abdominal pain and Mildly elevated LFTs. 3. History of endometriosis and chronic left lower quadrant abdominal pain 4. Hypokalemia PLAN: -Patient scheduled for laparoscopic cholecystectomy today with Dr. Delvalle -Replaced potassium Physician Cold Reduction Roller note has been reviewed by physician. Signing provider agrees with the documented findings, assessment, and plan of care. Objective - Vital Signs Vital signs: Vital Signs Temp 98.6 F 08/10/24 07:00 Pulse 76 08/10/24 11:40 Resp 14 08/10/24 11:40 BP 119/76 08/10/24 11:40 Pulse Ox 95 08/10/24 11:40 FiO2 Intake & Output 08/09/24 08/10/24 08/10/24 18:59 06:59 18:59 Intake Total 100 Balance 100 Intake: IV 100 Other: Voiding Method Toilet Toilet Toilet # Voids 4 1 - Labs CBC & Chem 7: 08/10/24 05:47 08/10/24 05:47 Labs: Abnormal Lab Results - Last 24 Hours (Table) 08/10/24 Range/Units 05:47 Sodium 136 L (137-145) mmol/L Potassium 3.4 L (3.5-5.1) mmol/L BUN 4 L (7-17) mg/dL
--- NOTE | 2024-08-10 12:57 | P.OP ---
Date of Procedure: 08/10/24 Preoperative Diagnosis: Cholecystitis Postoperative Diagnosis: Cholecystitis Procedure(s) Performed: Laparoscopic cholecystectomy Anesthesia: JOSE MIGUEL Surgeon: Srinath Delvalle Estimated Blood Loss (ml): 5 Pathology: other Condition: stable Disposition: PACU Description of Procedure: Ga the patient was placed on the operating table. The patient received a general endotracheal tube anesthesia. The patients abdomen was prepped and draped in the usual sterile fashion. Through an infraumbilical stab incision, the fascia of the anterior abdominal wall was grasped with a pair of Kochers and then the Veress needle was placed in the peritoneal cavity. Position of the Veress needle was confirmed with positive drop test. The abdomen was then insufflated. After adequate insufflation, the 10 mm trocar was placed in the peritoneal cavity. Following this the laparoscope was placed in the peritoneal cavity. The patient was placed in the head-up, right side up position and then a 5 mm trocar was placed in the right lateral and right subcostal position under direct visualization. A 8 mm trocar was placed in the epigastric position. The gallbladder was grasped in the fundus and infundibulum. Traction on the gallbladder was placed in the lateral and the cephalad positions. The triangle of Calot was visualized.. The cystic duct was bluntly dissected until the union of the cystic duct and common bile duct was seen. A critical view of safety was achieved. The cystic duct was then divided and sealed with the Harmonic scissors. A PDS Endoloop was then placed throughout the cystic duct stump. The cystic artery divided and sealed with the Harmonic scissors. The gallbladder was then removed from the liver bed using Harmonic scissors. The gallbladder was then extracted through the epigastric port site. Operative field was checked for any bleeding spots and Harmonic scissors was used to coagulate the liver bed. The abdomen was irrigated. The trocars were removed. The skin was closed using interrupted 3-0 Vicryl suture. Dermabond dressing were applied. The patient tolerated the procedure well.
[2024-08-10] MEDS: HYDROmorphone 1 MG/ML 1 ML SYRINGE IVP PRN (20:11)
[2024-08-10] MEDS: HYDROcodone/APAP 7.5-325MG 1 EACH TAB PO PRN (22:03)
--- NOTE | 2024-08-11 06:03 | P.PN ---
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 Patient came in with complaints of right sided flank pain which began Wednesday evening while at work. 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 She states that she had a sudden onset of right sided flank pain she ended up leaving work went home took an Excedrin went to sleep and when she woke up in the morning the pain had not gone away and she was having a bouts of emesis. Reports emesis is nonbloody no reports of coffee-ground emesis. She is not having any epigastric tenderness the pain is in the right flank wrapping around to the front. She does state that the pain has been worse after eating although she has not been able to eat much since Wednesday and has been continued on clear liquid diet. Patient states that her menses ended on July 25 does not appear to be any type of cyclic pain associated with endometriosis. She is not having any diarrhea. She has had normal bowel movements. An abdominal pelvis CT was completed on admission which reveals no evidence for obstructive uropathy or renal calculus. The appendix is normal there is no obvious acute abdominal process. The gallbladder is unremarkable. The pancreas is unremarkable. Pacer within normal limits. Patient's bilirubin is 1.4 AST is 45 ALT 26 alk phos 77. White blood cell count of 13.4 neutrophils 11.1. Patient sodium level is 137 potassium 3.0, chloride 83 CO2 39. 08/08/2024 Patient is seen in follow-up today reporting severe abdominal pain. Patient underwent gallbladder ultrasound which was normal and underwent HIDA scan per general surgery which was found to be delayed and is being scheduled for laparoscopic cholecystectomy on , 08/10/2024. Patient is afebrile with no reported chest pain or palpitations. Patient denies shortness of breath and is on room air. Patient reports to having significant nausea along with abdominal pain. 08/09/2024 Patient is evaluated today in follow up on the medical floor. Patient will be going for laproscopic cholecsytectomy tomorrow. White blood cell count 7.68. Sodium 140, potassium 3.2. 08/10/2024 Patient is seen in follow-up this morning currently n.p.o. scheduled to undergo laparoscopic cholecystectomy today. Patient per nursing staff with some increased anxiety and nervous about the procedure was given a dose of anxiety medication. Patient reports significant abdominal pain at this time. Review of systems: Constitutional: No reports of fatigue, fever, or chills Cardiovascular: No reports of chest pain or palpitations Respiratory: No reports of shortness of breath or cough GI: reports of nausea, no vomiting, or diarrhea : No reports of dysuria or retention Neurovascular: No reports of weakness or numbness All medications have been reviewed PHYSICAL EXAMINATION: GENERAL: The patient is alert and oriented x3, not in any acute distress. Well developed, thin built, and well nourished. HEENT: Pupils are round and equally reacting to light. EOMI. No scleral icterus. No conjunctival pallor. Normocephalic, atraumatic. No pharyngeal erythema. No thyromegaly. CARDIOVASCULAR: S1 and S2 present. No murmurs, rubs, or gallops. PULMONARY: Chest is clear to auscultation, no wheezing or crackles. ABDOMEN: Soft, tender, nondistended, normoactive bowel sounds. No palpable organomegaly. MUSCULOSKELETAL: No joint swelling or deformity. EXTREMITIES: No cyanosis, clubbing, or pedal edema. NEUROLOGICAL: Gross neurological examination did not reveal any focal deficits. SKIN: No rashes. Assessment: Right sided flank pain under investigation Leukocytosis reactive, normalized Contraction alkalosis from dehydration Hypokalemia dehydrational from emesis, improved after replacement Abnormal UA not overly suggestive of an acute urinary tract infection patient does state that a few weeks ago she was having some burning discomfort does not have any health insurance so she took some [id number] supplementation states that the symptoms had subsided for a couple weeks now is having this right sided flank pain. This could possibly be a pyelonephritis secondary to untreated urinary tract infection. Hx of endometriosis Hx of benign tumor of pituatary gland Hx of lumpectomy x 2 Hx of vaping Occasional marijuana use GI prophylaxis Full Code Plan: Urine hCG was negative continue on IV Toradol along with Zofran and Compazine as needed. Patient reporting severe pain 10/10 in the abdomen and will adjust medications accordingly Patient did undergo HIDA scan which was abnormal and general surgery following with plans on laparoscopic cholecystectomy today 08/10/2024 and awaiting official report. Diet to be resumed once cleared by surgery Continue normal saline at 75 mls/hr and will follow-up on repeat labs Will discuss with general surgery regarding possible discharge planning in the next 24 to 48 hours METER RECORD CLERK to follow up with patient in the office felt this was not a gynecological issue related to the endometriosis. The impression and plan of care has been dictated by Meli Lucero, Nurse Practitioner as directed. Dr. Emily MD I have performed a history and physical examination and medical decision making of this patient, discussed the same with the dictator, and agree with the dictators assessment and plan as written, documented as a scribe. Based on total visit time, I have performed more than 50% of this visit. Objective - Vital Signs Vital signs: Vital Signs Temp 98.6 F 08/10/24 07:00 Pulse 81 08/10/24 07:00 Resp 16 08/10/24 08:14 BP 129/86 08/10/24 07:00 Pulse Ox 98 08/10/24 07:00 FiO2 Intake & Output 08/09/24 08/10/24 08/10/24 18:59 06:59 18:59 Other: Voiding Method Toilet Toilet Toilet # Voids 4 1 - Labs CBC & Chem 7: 08/10/24 05:47 08/10/24 05:47 Labs: Abnormal Lab Results - Last 24 Hours (Table) 08/09/24 08/09/24 08/10/24 Range/Units 05:42 05:42 05:47 Eosinophils # 0.01 L (0.04-0.35) X 10*3/uL Sodium 136 L (137-145) mmol/L Potassium 3.2 L 3.4 L (3.5-5.5) mmol/L Anion Gap 12.10 H (4.00-12.00) mmol/L BUN 7.3 L 4 L (9.0-27.0) mg/dL BUN/Creatinine Ratio 9.12 L (12.00-20.00) Ratio Glucose 113 H (70-110) mg/dL
[2024-08-11 07:41] VITALS: RESP 16
[2024-08-11 10:51] LABS: BUN/Creat Ratio 4.75 Ratio (12.00-20.00); Blood Urea Nitrogen 3.8 mg/dL (9.0-27.0); Calcium 9.3 mg/dL (8.7-10.3); Carbon Dioxide 27.3 mmol/L (21.6-31.8); Chloride 101 mmol/L (96-109); Glucose 93 mg/dL (70-110); Magnesium 1.9 mg/dL (1.5-2.4); Potassium 3.8 mmol/L (3.5-5.5); Sodium 137 mmol/L (135-145)
--- NOTE | 2024-08-11 13:49 | P.PN ---
Subjective Progress Note Date: 08/11/24 SURGICAL PROGRESS NOTE CHIEF COMPLAINT: Abdominal pain HISTORY OF PRESENT ILLNESS: Patient postop day# 1 status post laparoscopic cholecystectomy. Patient reports her pain is more of a surgical pain. She did have 1 episode of vomiting last night. She is feeling better today. She denies any flatus. Denies any difficulty urinating. She ate a few bites of breakfast. Afebrile. PHYSICAL EXAM: VITAL SIGNS: Reviewed. GENERAL: Well-developed in no acute distress. ABDOMEN: Soft. Nondistended. Incision sites clean dry and intact NEUROLOGIC: Alert and oriented. Cranial nerves II through XII grossly intact. ASSESSMENT: 1. Biliary dyskinesia with EF of 9% 2. Cholecystitis PLAN: -Patient can be discharge from surgical standpoint -Continue pain management -Encourage patient to ambulate -Ice packs ordered as needed for pain Physician Marketing Analytics Analyst note has been reviewed by physician. Signing provider agrees with the documented findings, assessment, and plan of care. Objective - Vital Signs Vital signs: Vital Signs Temp 97.6 F 08/11/24 07:00 Pulse 61 08/11/24 07:00 Resp 16 08/11/24 07:00 BP 116/87 08/11/24 07:00 Pulse Ox 98 08/11/24 07:00 FiO2 Intake & Output 08/10/24 08/11/24 08/11/24 18:59 06:59 18:59 Intake Total 200 118 Output Total 5 Balance 195 118 Intake: IV 200 Oral 118 Output: Estimated Blood Loss 5 Other: Voiding Method Toilet Toilet # Voids 4 2 - Labs CBC & Chem 7: 08/10/24 05:47 08/11/24 05:35 Labs: Abnormal Lab Results - Last 24 Hours (Table) 08/11/24 Range/Units 05:35 BUN 3.8 L (9.0-27.0) mg/dL BUN/Creatinine Ratio 4.75 L (12.00-20.00) Ratio
[2024-08-11 14:14] VITALS: BP 118/85; PULSE 73; TEMP 97.4
--- NOTE | 2024-08-12 12:51 | P.DS ---
Providers Date of admission: 08/06/24 20:35 Expected date of discharge: 08/11/24 Attending physician: Anup Webster Consults: 08/07/24 13:37 Consult Physician Routine Consulting Provider: Srinath Delvalle Consult Reason/Comments: right flank pain Do you want consulting provider notified?: Yes Consult Physician Routine Consulting Provider: Alyssia Gardner Consult Reason/Comments: Endometriosis and flank pain Do you want consulting provider notified?: Yes Primary care physician: Stated None Hospital Course: Final diagnosis Right sided flank pain under investigation with abnormal urinalysis, initial concerns for pyelonephritis with untreated urinary tract infection, pyelonephritis ruled out pain likely secondary to acute cholecystitis HIDA scan showing biliary dyskinesia with an EF of 9%, status post laparoscopic cholecystectomy Leukocytosis reactive, normalized Contraction alkalosis from dehydration Hypokalemia dehydrational from emesis, improved after replacement Hx of endometriosis Hx of benign tumor of pituatary gland Hx of lumpectomy x 2 Hx of vaping Occasional marijuana use GI prophylaxis Full Code Discharge disposition Patient is being discharged in a stable condition with guarded prognosis to home. Patient will follow-up with Dr. Abelardo Webster to establish in the outpatient setting upon discharge. Patient is to continue with current diet and medications and close outpatient follow-up with general surgery as scheduled. Total time taken is greater than 35 minutes. Hospital course This is a 23-year-old female who was recently admitted with intractable nausea and vomiting with right sided pain being closely monitored. Patient evaluated by general surgery underwent gallbladder ultrasound with no obvious abnormalities although underwent HIDA scan as patient continued to have symptoms including nausea vomiting right upper quadrant pain and noted to have biliary dyskinesia with an EF of 9% and is status post laparoscopic cholecystectomy for cholecystitis. Patient doing well with some mild discomfort in the abdomen although no further vomiting noted. Nausea occasional but likely secondary to Dilaudid use. Patient is tolerating diet and has been instructed to slowly advance as tolerated over the next few days. Recommend follow-up in the outpatient setting to establish with a primary care provider and reevaluation by general surgery in 1 to 2 weeks. Patient has been cleared by general surgery for discharge. Please refer to other consultation notes for further HPI. Currently no reports of chest pain, shortness of breath, or palpitations. Patient is afebrile. No reports of nausea or vomiting and patient is tolerating diet. Patient will be discharged today. Physical exam: Gen: This is a 23-year-old female who is awake, alert and oriented x 3, well- developed, thin built HEENT: Head is atraumatic, normocephalic. Pupils equal, round. Sclerae is anicteric. NECK: Supple. No JVD. No lymphadenopathy. No thyromegaly. LUNGS: Clear to auscultation. No wheezes or rhonchi. No intercostal retractions. HEART: Regular rate and rhythm. No murmur. ABDOMEN: Soft. Bowel sounds are present. No masses. Mild tenderness. EXTREMITIES: No pedal edema. No calf tenderness. NEUROLOGICAL: Patient is awake, alert and oriented x3. Cranial nerves 2 through 12 are grossly intact. Please refer to medication reconciliation sheet for a list of medications. The impression and plan of care has been dictated by Meli Lucero, Nurse Practitioner as directed. Dr. Diaz at the surgical sites , MD I have performed a history and examination and MDM of this patient, discussed the same with the dictator, and agree with the dictator's assessment and plan as written ,documented as a scribe. Based on total visit time, I have performed more than 50% of the visit. Patient Condition at Discharge: Stable Plan - Discharge Summary New Discharge Prescriptions: New Ibuprofen [Motrin] 600 mg PO Q8HR PRN #30 tab PRN Reason: Pain HYDROcodone/APAP 5-325MG [[place] 5-325] 1 tab PO Q6HR PRN 3 Days #12 tab PRN Reason: Pain Acetaminophen Tab [Tylenol] 650 mg PO Q6HR PRN tab PRN Reason: Fever and/ or Mild Pain Discharge Medication List Acetaminophen Tab [Tylenol] 650 mg PO Q6HR PRN tab 08/11/24 [Rx] HYDROcodone/APAP 5-325MG [[place] 5-325] 1 tab PO Q6HR PRN 3 Days #12 tab 08/11/24 [Rx] Ibuprofen [Motrin] 600 mg PO Q8HR PRN #30 tab 08/11/24 [Rx] Follow up Appointment(s)/Referral(s): Leda Saenz MD [STAFF PHYSICIAN] - 1 Week Srinath Delvalle MD [STAFF PHYSICIAN] - 1 Week (office closed please call wednesday) Activity/Diet/Wound Care/Special Instructions: Activity limited until follow-up Follow-up with primary care provider to establish Follow-up with general surgery outpatient Continue taking medications as prescribed Continue current diet slowly advance as tolerated Discharge/Stand Alone Forms: PH Area PCPs Discharge Disposition: HOME SELF-CARE
== END 2024-08-11 16:14 | disposition home or self-care (01) | DRG 418 ==
LOC: EC 14:36 → OBSVTOIN 20:35 → 6NMEDSUR 20:35
PROVIDERS: ADMIT Hospitalist; ATTEND Hospitalist
PROC: 0FT44ZZ Resection of Gallbladder, Percutaneous Endoscopic Approach (ICD-10-PCS; principal; 2024-08-10 12:30)
DX: K81.9 Cholecystitis, unspecified (principal); E87.3 Alkalosis; F41.9 Anxiety disorder, unspecified; G89.29 Other chronic pain; K82.8 Other specified diseases of gallbladder; E87.6 Hypokalemia; R19.7 Diarrhea, unspecified; E86.0 Dehydration; Z86.011 Personal history of benign neoplasm of the brain; Z87.891 Personal history of nicotine dependence; Z28.310 Unvaccinated for COVID-19; Z79.899 Other long term (current) drug therapy; Z88.1 Allergy status to other antibiotic agents; Z88.0 Allergy status to penicillin; Z88.2 Allergy status to sulfonamides
CPT/HCPCS: 36415; 74177; 76705; 78227; 80048; 80053; 81001; 81025; 82150; 83690; 83735; 85025; 87086; 88304; 96361; 96365; 96366; 96375; 96376; 99285